=== PATIENT | male | born 1930 | race Caucasian/White ===

== ENCOUNTER → 2018-06-02 | Outpatient (CLI) | payer OTHER, MEDICARE ==
[~2018-06-02] MED LIST: ACE325 PO; ALP25 PO; AMIO400T9 PO; AMLO-1 PO; ASPE325 PO; ASPI81TA15 PO; BET25 PO; CARV25TA78 PO; CEP500 PO; CEPH500T7 PO; CIPR-214 PO; CIPR-344 PO; CLIN300C99 PO; DILT240C77 PO; DOC100 PO; DOC240 PO; DOCU-416 PO; DOXY150T6 PO; ERTA1VIA IVPB; FAMO20TA28 PO; FAMO20TA9 PO; FISH1CAP15 PO; FURO-45 PO; IRBE75TA4; LEV25; LEV88 PO; LISI2.5T60 PO; LISI5TAB25 PO; LOR5 PO; MAGN400T36 PO; METO-221 PO; METO-785 PO; MULT-1335 PO; MVI; OMEG500C5 PO; OXYGEN INH; PHENA200 PO; PRA20 PO; RIV10 PO; SULF-198 PO; TAMS0.4C69 PO; WAR2 PO; ZOL5 PO; [UNRECOGNIZED DRUG - CODE] PO
[2018-06-02 09:06] LABS: INR 3.75
== END ==
LOC: LAB 08:33
PROVIDERS: ATTEND Nurse Practitioner Family
DX: Z51.81 Encounter for therapeutic drug level monitoring (principal); Z79.01 Long term (current) use of anticoagulants
CPT/HCPCS: 36415; 85610

== ENCOUNTER → 2018-09-12 | Outpatient (CLI) | payer MEDICARE, OTHER ==
[~2018-09-12] MED LIST changes: +AZIT-17 PO; +LEVO50TA86 PO; +MAGN250T5 PO
--- NOTE | 2018-09-12 13:07 | RADIOLOGY IMAGING REPORT ---
FACILITY: [facility] PATIENT NAME: Ovidio Álvarez : 1930 MR: [id number] V: [id number] EXAM DATE: ORDERING PHYSICIAN: LG SEPULVEDA TECHNOLOGIST: Location: [facility] [place] Patient: Ovidio Álvarez : 1930 Visit/Account:[id number] Date of Sevice: 09/12/2018 CHEST PA LAT INDICATION: Hypoxia COMPARISON: April 27, 2016 FINDINGS: The cardiac silhouette is normal in size. Intact sternotomy wires noted. No pneumothora x. Moderate-sized new consolidation in the right upper lobe. Mild bilateral mid to lower lung patch y new groundglass opacification. No acute osseous abnormality. No pleural fluid. IMPRESSION: 1. Moderate-sized new right upper lobe consolidation concerning for a bronchopneumonia. Recommend 2 -3 week chest radiograph follow-up to ensure resolution. 2. Mild new bilateral mid to lower lung nonspecific central opacification which may represent airway s thickening related to a superimposed viral pneumonia or alternatively mild pulmonary edema. Report Dictated By: Sascha Way MD at 09/12/2018 1:00 PM Report E-Signed By: Sascha Way MD at 09/12/2018 1:02 PM WSN:[email or web address]
== END ==
LOC: RAD 11:15
PROVIDERS: ATTEND Nurse Practitioner Family
DX: R91.8 Other nonspecific abnormal finding of lung field (principal)
CPT/HCPCS: 71046

== ENCOUNTER → 2018-09-19 | Outpatient (CLI) | payer MEDICARE, OTHER ==
--- NOTE | 2018-09-19 11:30 | RADIOLOGY IMAGING REPORT ---
FACILITY: [facility] PATIENT NAME: Ovidio Álvarez : 1930 MR: [id number] V: [id number] EXAM DATE: ORDERING PHYSICIAN: LG SEPULVEDA TECHNOLOGIST: Location: [facility] Patient: Ovidio Álvarez : 1930 Visit/Account:[id number] Date of Sevice: 09/19/2018 CHEST PA LAT Indication: Pneumonia Comparison: Chest x-ray 09/12/2018 Findings: Lungs: Right upper lobe airspace opacity has not significantly changed. Patchy opacities left upper lobe are also unchanged. Mediastinum/pulmonary vasculature: Heart size and pulmonary vasculature are normal. Bones/soft tissues: Sternotomy wires are stable. IMPRESSION: Bilateral patchy upper lobe airspace opacities, unchanged from 09/12/2018. This is most c onsistent with pneumonia. Report Dictated By: Emil Delgado at 09/19/2018 11:24 AM Report E-Signed By: Emil Delgado at 09/19/2018 11:25 AM WSN:[email or web address]
== END ==
LOC: RAD 10:45
PROVIDERS: ATTEND Nurse Practitioner Family
DX: J18.9 Pneumonia, unspecified organism (principal)
CPT/HCPCS: 71046

== ENCOUNTER → 2018-09-26 | Outpatient (CLI) | payer MEDICARE, OTHER ==
[2018-09-26 11:31] LABS: PLATELET COUNT, AUTOMATED 254 K/uL (150-450)
--- NOTE | 2018-09-26 14:44 | RADIOLOGY IMAGING REPORT ---
FACILITY: [facility] [place] PATIENT NAME: Ovidio Álvarez : 1930 MR: [id number] V: [id number] EXAM DATE: ORDERING PHYSICIAN: LG SEPULVEDA TECHNOLOGIST: Location: [facility] Patient: Ovidio Álvarez : 1930 Visit/Account:[id number] Date of Sevice: 09/26/2018 Exam type: CHEST PA LAT History: Pneumonia and shortness of breath Comparison: September 19, 2017. Findings: A slight interval worsening of the patchy bilateral airspace opacities. There is mild blunting the c ostophrenic angles similar to the prior study which may represent small pleural effusions. The cardi ac silhouette is normal in size. There are sternotomy sutures present IMPRESSION: 1. Slight interval worsening of the patchy bilateral airspace opacities worrisome for multifocal pne umonia. Continued follow-up recommended Possible small bilateral pleural effusions Report Dictated By: Naty Singleton MD at 09/26/2018 2:37 PM Report E-Signed By: Naty Singleton MD at 09/26/2018 2:39 PM WSN:[email or web address]
== END ==
LOC: RAD 11:03
PROVIDERS: ATTEND Nurse Practitioner Family
DX: J18.9 Pneumonia, unspecified organism (principal); J90 Pleural effusion, not elsewhere classified
CPT/HCPCS: 36415; 71046; 83880; 85025; 85379

== ENCOUNTER 2018-11-10 14:30 | Outpatient (RCR) | payer MEDICARE, OTHER ==
--- NOTE | 2018-10-05 16:54 | PT INITIAL EVALUATION ---
MEDICAL DIAGNOSIS: decreased strength and balance TREATMENT DIAGNOSIS: same, altered gait, decreased endurance DATE OF ONSET: 08/02/18 SUBJECTIVE: Gavino Álvarez presents to physical therapy with complaints of fatigue, weakness, difficulties walking, and decreased balance with a desire to return to [place] as soon as possible to get back into his routine. 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 Other than the, he reports that he is doing well. He denies pain. He reports that he is a little frustrated for being here today. He also reports that he has ringing his B ears that no one can figure out. He denies any difficulties at home or any recent falls. REHAB PROBLEM LIST: Decreased Strength Decreased Endurance Decreased Balance Decreased Function Decreased ADL's Decreased Mobility Decreased Gait PREVIOUS MEDICAL HISTORY: See EMR OCCUPATION: Retired OBJECTIVE: Posture: He demonstrated B rounded shoulders, increased thoracic kyphosis, increased cervical flexion, increased forward head, decreased lumbar lordosis. ROM: B LE's: WFLs Strength: B hip flexion, abduction, adduction, extension, B knee flexion and extension, B ankle PF and DF: 4-/5. Special Tests: 6 minute walk test: 171 feet with multiple stops 5 sit to/from standin:29 seconds Mobility: Independent Gait: He demonstrated increased base of support, decreased B step lengths, decreased B feet clearance, decreased velocity, increased weaving from L to R, continually utilizing equipment to assist with ambulation. Balance: Decreased balance in all conditions as was able to hold each position for 3 0 seconds with moderate to severe sway. ASSESSMENT: He will benefit from skilled physical therapy to address the listed impairments to improve function and QOL. Short Term Goals 6 weeks: Pt will demonstrate improvements in B LE strength from baseline to 4+/5 or greater to improve function and QOL. 6 weeks: Pt will demonstrate improvements in endurance as he will be able to ambulate 500 feet without any sitting breaks. 6 weeks: Pt will be able to return to his gym to continue working out. Patient's Goals return to gym tank PLAN: Patient to be seen for Manual Therapy/STM/MET Strengthening/condition Range of Motion Spinal Stabilization Work Hardening/Cond Stretching Neuromuscular Re-ed Closed Chain Program Posture/Body mechanics Gait Trg/Balance Trg Home Exercise Program Therapeutic Activities 2x/Week for 6 Weeks If you have any questions, comments, or concerns about this report or plan, please contact me at . Thank you, Sanjeev Romero, PT, DPT MTDD
--- NOTE | 2018-11-14 13:13 | PT PLAN OF CARE ---
Physician: ALMAZ Fenton Patient is being seen: 2x/week Therapist: Sanjeev Romero, PT, DPT Medical Diagnosis: decreased strength and balance Treatment Diagnosis: same, altered gait, decreased endurance Date of Onset: 08/02/18 Date of Initial Evaluation: 10/05/18 Date patient was last seen: 11/10/18 Number of treatments: 9 Number of cancellations/No shows: 1 INTERVENTIONS: Manual Therapy/STM/MET Strengthening/condition Range of Motion Spinal Stabilization Work Hardening/Cond Stretching Neuromuscular Re-ed Closed Chain Program Posture/Body mechanics Gait Trg/Balance Trg Home Exercise Program Therapeutic Activities GOALS: 6 weeks: Pt will demonstrate improvements in B LE strength from baseline to 4+/5 or greater to improve function and QOL. 6 weeks: Pt will demonstrate improvements in endurance as he will be able to ambulate 500 feet without any sitting breaks. 6 weeks: Pt will be able to return to his gym to continue working out. PATIENT'S GOAL: return to gym tank Status of Patient's Goals: Unknown Patient Compliance: Fair Prognosis: Fair Reasons for continuing therapy: This is a discharge note for Ovidio Álvarez. He had a heart event and is admitted to the hospital. As a result, he will be discharged from PT. Posture: He demonstrated B rounded shoulders, increased thoracic kyphosis, increased cervical flexion, increased forward head, decreased lumbar lordosis. ROM: B LE's: WFLs Strength: B hip flexion, abduction, adduction, extension, B knee flexion and extension, B ankle PF and DF: 4-/5. Palpation: Special Tests: 6 minute walk test: 171 feet with multiple stops 5 sit to/from standin:29 seconds Mobility: Independent If you have any questions, please contact me at [phone]. Thank you, Sanjeev Romero, PT, DPT [facility]
== END 2018-11-10 18:00 | disposition home or self-care (01) ==
LOC: PT 14:30
PROVIDERS: ATTEND Nurse Practitioner Family
DX: M62.81 Muscle weakness (generalized) (principal); R26.89 Other abnormalities of gait and mobility; R53.83 Other fatigue; Z95.1 Presence of aortocoronary bypass graft; H93.13 Tinnitus, bilateral
CPT/HCPCS: 97162

== ENCOUNTER 2018-11-13 07:35 | Inpatient (IN) | payer MEDICARE, OTHER ==
--- NOTE | 2018-11-13 07:32 | ER Report ---
History and Physical Time Seen By MD: 07:32 JONY/HANNA FRASER after being found down by at home. History of CABG, NE, and urologic issues. Pt. with HR in the 30s, hypoxic and unresponsive when paramedics arrived. Received an IO for access, and was still unresponsive during the placement. Upon arrival to the ED confused initially and in resp distress. states he has been progressively more SOB and weak over the past 2 weeks. Also worsening of his dementia as of late. No recent infections. Seen by PCM last week. Remainder of the 14 system rev: Yes Allergies: Coded Allergies: Penicillins (Verified Allergy, Unknown, 06/26/16) Home Meds Reported Medications Magnesium Oxide (MAGNESIUM OXIDE) 250 Mg Tablet, 250 MG PO QDAY 07/05/18 Levothyroxine Sodium (LEVOTHYROXINE SODIUM) 50 Mcg Tablet, 50 MCG PO QDAY, TAB 07/05/18 Lisinopril (LISINOPRIL) 5 Mg Tablet, 5 MG PO QDAY HOLD FOR (S) BP LOWER THAN 120 09/18/13 Carvedilol (CARVEDILOL) 25 Mg Tablet, 12.5 MG PO BID, TAB TAKE ONE half TABLET BY MOUTH TWICE A DAY 09/17/13 Oxygen (Oxygen) 2 L Inha, 2 L INH DAILY 12/15/12 Multivitamins W-Minerals (Multiple Vitamin) 1 Tab Tablet, 1 TAB PO DAILY 12/15/12 Fish Oil/Dha/Epa (FISH OIL 1,200 MG FISH OIL) 1 Each Capsule, 1 EACH PO DAILY 12/15/12 Acetaminophen (Tylenol) 325 Mg Tab, 650 MG PO Q6H PRN 12/15/12 Warfarin Sod (Coumadin (Or Equiv)) 2 Mg Tab, 2 MG PO QDAYW WEDNESDAY, WEDNESDAY, WEDNESDAY, WEDNESDAY. It is very important that you take your coumadin exactly as prescribed, have blood work to monitor your PT/INR values, and follow up with your health care provider as prescribed. Diet and medication can affect the PT/INR level. Keep your diet pretty much the same day to day. Many foods contain Vitamin K which helps blood to clot and can affect the way your coumadin works. You don't need to avoid foods that have Vitamin K, but you do need to eat about the same amount of them every day. Be sure to tell your provider before changing your diet for any reason (weight loss, illness, etc.) Do not start or discontinue any medications, prescribed or over the counter, except on the advise of your provider or pharmacist. Coumadin (Warfarin) increases the risk of bleeding. 10/19/12 Pravastatin Sod (PRAVACHOL (OR EQUIV)) 20 Mg Tab, 20 MG PO HS, #90 06/26/12 Discontinued Scripts Azithromycin (Z-PACK) 250 Mg Tablet, 0 PO QDAY, #6 DOSE-PACK Prov:CAM SEGAL MD 08/22/18 Hx Smoking: Yes (60 YEARS AGO) Smoking Status: Never Smoker, Former Smoker Exposure to Second Hand Smoke?: No Hx Substance Use Disorder: No (Refuses to say) Hx Alcohol Use: No Constitutional Vital Sign - Last 24 Hours 11/13/18 11/13/18 11/13/18 11/13/18 07:36 07:37 08:00 08:05 Pulse 82 105 Resp 32 22 B/P (MAP) 160/122 167/148 (154) 150/107 (121) Pulse Ox 93 87 O2 Delivery Oxy Mask O2 Flow Rate 10.0 11/13/18 11/13/18 11/13/18 11/13/18 08:10 08:15 08:20 08:24 B/P (MAP) 135/87 (103) 149/98 (115) 135/101 (112) Pulse Ox 98 O2 Delivery Bi-PAP FiO2 60.0 11/13/18 11/13/18 11/13/18 11/13/18 08:24 08:24 08:25 08:30 Pulse 85 94 Resp 28 21 B/P (MAP) 129/107 (114) 129/98 (108) Pulse Ox 94 FiO2 60.0 11/13/18 11/13/18 11/13/18 11/13/18 08:35 08:40 08:45 08:50 B/P (MAP) 142/103 (116) 141/97 (112) 127/101 (110) 131/118 (122) 11/13/18 11/13/18 11/13/18 11/13/18 08:55 09:00 09:05 09:10 Pulse ??? B/P (MAP) ???/??? (6965) 140/100 (113) 135/90 (105) 11/13/18 11/13/18 11/13/18 11/13/18 09:15 09:20 09:25 09:30 Pulse 74 Resp 18 B/P (MAP) 138/94 (109) 132/80 (97) 124/83 (97) 136/73 (94) Pulse Ox 100 11/13/18 11/13/18 11/13/18 11/13/18 09:35 09:40 09:45 09:50 B/P (MAP) 134/61 (85) 128/75 (92) 124/70 (88) 122/75 (91) 11/13/18 09:55 B/P (MAP) 124/87 (99) Physical Exam General Appearance: The patient is in moderate resp distress, is confused and somewhat combative Eyes: Pupils equal and round no pallor or injection. ENT, Mouth: Mucous membranes are moist. Respiratory: diffuse rales Cardiovascular: irregular rhythm Gastrointestinal: Abdomen is soft and non tender, no masses, bowel sounds normal. Neurological: alert but confused, moves all extremities equally Skin: Warm and dry, no rashes. Neck is supple non tender. Extremities: b/l lower extremity edema to knees. Urinary catheter leg bag in place DIFFERENTIAL DIAGNOSIS: After history and physical exam differential diagnosis was considered for shortness of breath including but not limited to pulmonary infectious process, COPD, asthma, pulmonary embolus and congestive heart failure. Medical Decision Making Data Points Result Diagram: 11/13/18 0730 11/13/18 0730 Laboratory Hematology Test 11/13/18 07:30 Red Blood Count 4.54 M/uL (4.00-5.60) Mean Corpuscular Volume 95.5 fL (80.0-96.0) Mean Corpuscular Hemoglobin 30.5 pg (26.0-33.0) Mean Corpuscular Hemoglobin Concent 31.9 g/dL (32.0-36.0) Red Cell Distribution Width 19.0 % (11.5-14.5) Mean Platelet Volume 8.0 fL (7.2-11.1) Neutrophils (%) (Auto) 57.5 % (39.4-72.5) Lymphocytes (%) (Auto) 21.0 % (17.6-49.6) Monocytes (%) (Auto) 19.6 % (4.1-12.4) Eosinophils (%) (Auto) 1.2 % (0.4-6.7) Basophils (%) (Auto) 0.7 % (0.3-1.4) Nucleated RBC Relative Count (auto) 0.0 /100WBC Neutrophils # (Auto) 4.1 K/uL (2.0-7.4) Lymphocytes # (Auto) 1.5 K/uL (1.3-3.6) Monocytes # (Auto) 1.4 K/uL (0.3-1.0) Eosinophils # (Auto) 0.1 K/uL (0.0-0.5) Basophils # (Auto) 0.1 K/uL (0.0-0.1) Nucleated RBC Absolute Count (auto) 0.00 K/uL Prothrombin Time 20.7 seconds (12.0-14.4) Prothromb Time International Ratio 1.75 Activated Partial Thromboplast Time 32 seconds (23-35) Sodium Level 142 mmol/L (137-145) Potassium Level 4.4 mmol/L (3.5-5.0) Chloride Level 108 mmol/L (98-107) Carbon Dioxide Level 24 mmol/L (22-30) Blood Urea Nitrogen 27 mg/dl (9-21) Creatinine 2.10 mg/dl (0.66-1.25) Glomerular Filtration Rate Calc 30.1 Random Glucose 125 mg/dl (75-110) Lactate 2.3 mmol/L (0.7-2.1) Calcium Level 8.9 mg/dl (8.4-10.2) Total Bilirubin 1.0 mg/dl (0.2-1.3) Aspartate Amino Transf (AST/SGOT) 43 U/L (0-35) Alanine Aminotransferase (ALT/SGPT) 38 U/L (0-56) Alkaline Phosphatase 75 U/L (0-126) Troponin I 0.029 ng/ml Total Protein 7.5 g/dl (6.3-8.2) Albumin 4.0 g/dl (3.5-5.0) Chemistry Test 11/13/18 07:30 White Blood Count 7.1 k/uL (4.5-11.0) Red Blood Count 4.54 M/uL (4.00-5.60) Hemoglobin 13.8 g/dL (14.0-18.0) Hematocrit 43.4 % (42.0-52.0) Mean Corpuscular Volume 95.5 fL (80.0-96.0) Mean Corpuscular Hemoglobin 30.5 pg (26.0-33.0) Mean Corpuscular Hemoglobin Concent 31.9 g/dL (32.0-36.0) Red Cell Distribution Width 19.0 % (11.5-14.5) Platelet Count 254 K/uL (150-450) Mean Platelet Volume 8.0 fL (7.2-11.1) Neutrophils (%) (Auto) 57.5 % (39.4-72.5) Lymphocytes (%) (Auto) 21.0 % (17.6-49.6) Monocytes (%) (Auto) 19.6 % (4.1-12.4) Eosinophils (%) (Auto) 1.2 % (0.4-6.7) Basophils (%) (Auto) 0.7 % (0.3-1.4) Nucleated RBC Relative Count (auto) 0.0 /100WBC Neutrophils # (Auto) 4.1 K/uL (2.0-7.4) Lymphocytes # (Auto) 1.5 K/uL (1.3-3.6) Monocytes # (Auto) 1.4 K/uL (0.3-1.0) Eosinophils # (Auto) 0.1 K/uL (0.0-0.5) Basophils # (Auto) 0.1 K/uL (0.0-0.1) Nucleated RBC Absolute Count (auto) 0.00 K/uL Prothrombin Time 20.7 seconds (12.0-14.4) Prothromb Time International Ratio 1.75 Activated Partial Thromboplast Time 32 seconds (23-35) Glomerular Filtration Rate Calc 30.1 Lactate 2.3 mmol/L (0.7-2.1) Calcium Level 8.9 mg/dl (8.4-10.2) Total Bilirubin 1.0 mg/dl (0.2-1.3) Aspartate Amino Transf (AST/SGOT) 43 U/L (0-35) Alanine Aminotransferase (ALT/SGPT) 38 U/L (0-56) Alkaline Phosphatase 75 U/L (0-126) Troponin I 0.029 ng/ml Total Protein 7.5 g/dl (6.3-8.2) Albumin 4.0 g/dl (3.5-5.0) Coagulation Test 11/13/18 07:30 Prothrombin Time 20.7 seconds Prothromb Time International Ratio 1.75 Activated Partial Thromboplast Time 32 seconds Microbiology Microbiology Date/Time Source Procedure Growth Status 11/13/18 08:13 Blood Line Draw Blood Culture - Preliminary NO GROWTH SO FAR, SET LATE. REINCUBATED Resulted 11/13/18 07:30 Blood Blood Culture - Preliminary NO GROWTH SO FAR, SET LATE. REINCUBATED Resulted ED Course/Re-evaluation ED Course Fall at home likely from primary cardiac event or secondary to hypoxia from pulmonary edema. Bradycardic, hypoxic, and unresponsive on propeller engineer's arrival to the home. Pt. more comfortable and less combative in the ED after placement of BIPAP. CXR notable for interstitial PNA vs. pulmonary edema. Bedside echo shows EF of likely 30-35%. Echo in July had EF of 55%. Improved with BIPAP and Lasix. Given abx for possible PNA. I had a long conversation with family about goals of care. states that she considered not calling 911, but felt as if her would have wanted her to call. That said, she said he would not want aggressive care to include cardiology/culture media laboratory assistant intervention/etc. She agreed that BIPAP and medical management at [facility] was ideal for him, and understands the limitations at [facility]. He will be admitted for further care and stabilization. Decision to Disposition Date: Nov 13, 2018 Decision to Disposition Time: 09:55 Depart Departure Latest Vital Signs Vital Signs Date Time Temp Pulse Resp B/P (MAP) Pulse Ox O2 Delivery O2 Flow Rate FiO2 11/13/18 09:55 124/87 (99) 11/13/18 09:30 74 18 100 11/13/18 08:24 60.0 11/13/18 08:24 Bi-PAP 11/13/18 07:36 10.0 Impression: Primary Impression: CHF exacerbation Additional Impression: Respiratory failure, acute Condition: Improved Disposition: Admitted from ER Problem Qualifiers Primary Impression: CHF exacerbation Heart failure type: unspecified Qualified Codes: I50.9 - Heart failure, unspecified Additional Impression: Respiratory failure, acute Respiratory failure complication: hypoxia Qualified Codes: J96.01 - Acute respiratory failure with hypoxia JUNAID BURNETTE MD Nov 13, 2018 07:32
[~2018-11-13 07:35] MED LIST changes: -ALBU8.5H IH
[2018-11-13] MEDS ORDERED: NS(*) 0.9% 1000 ML BAG 1,000 ML IV ONE ×2 (07:45→08:50)
[2018-11-13 07:57] LABS: PLATELET COUNT, AUTOMATED 254 K/uL (150-450)
[2018-11-13] MEDS ORDERED: EMS NS 0.9%(*) 1000 ML BAG 1,000 ML IV ONE (08:00)
[2018-11-13 08:02] LABS: INR 1.75
--- NOTE | 2018-11-13 08:21 | RADIOLOGY IMAGING REPORT ---
FACILITY: [facility] PATIENT NAME: Ovidio Álvarez : 1930 MR: [id number] V: [id number] EXAM DATE: ORDERING PHYSICIAN: JUNAID BURNETTE TECHNOLOGIST: Location: [facility] Patient: Ovidio Álvarez : 1930 Visit/Account:[id number] Date of Sevice: 11/13/2018 Portable chest, one view. HISTORY: Fall, on Coumadin, shortness of breath. COMPARISON: 09/26/2018. EKG leads project on the chest. Surgical wires are present in the sternum. Metal clips project on the mediastinum and left chest. Mild cardiomegaly is unchanged. The aortic knob is calcified. Pulmonary vessels are mildly engorged. Patchy infiltrate in the right upper lobe has decreased. Bilateral inter stitial lung infiltrates are otherwise unchanged. The pleural surfaces are unremarkable. No pneumotho rax. Degenerative changes are present in the spine and left shoulder. IMPRESSION: Mild cardiomegaly without kelsea congestive heart failure. Right upper lobe infiltrate, decreased. Bilateral interstitial lung infiltrates, otherwise unchanged. Atherosclerosis. Report Dictated By: Valerio Zaragoza MD at 11/13/2018 8:13 AM Report E-Signed By: Valerio Zaragoza MD at 11/13/2018 8:17 AM WSN:[id number]
[2018-11-13] MEDS ORDERED: LEVOFLOXACIN/D5W 750 MG/150 ML 150 ML IVPB ONE (08:30)
[2018-11-13] MEDS ORDERED: FUROSEMIDE 40 MG/4 ML VIAL IVP ONE (08:55)
--- NOTE | 2018-11-13 09:41 | RADIOLOGY IMAGING REPORT ---
FACILITY: [facility] PATIENT NAME: Ovidio Álvarez : 1930 MR: [id number] V: [id number] EXAM DATE: ORDERING PHYSICIAN: JUNAID BURNETTE TECHNOLOGIST: Location: [facility] [place] Patient: Ovidio Álvarez : 1930 Visit/Account:[id number] Date of Sevice: 11/13/[address] scan without contrast, and cervical spine CT scan without contrast. HISTORY: Fall, on Coumadin. COMPARISON: None currently available. 3 mm thick and 0.[address] images were obtained of the brain. 2 mm thick and 0.[address] images were obtained of the cervical spine. Coronal and sagittal computer reconstructions w ere performed. No intravenous contrast. One of the following dose optimization techniques was utilize d in the performance of this exam: Automated exposure control; adjustment of the mA and/or kV accordi ng to the patient's size; or use of an iterative reconstruction technique. Specific details can be referenced in the facility's radiology CT exam operational policy. FINDINGS: Cerebral and cerebellar sulci are moderately widened. The brainstem is slightly obscured by CT artifa cts. Patchy areas of decreased attenuation are present in the centrum semiovale bilaterally, most pro minent in the right frontal lobe. Moderate encephalomalacia is present in the right frontal lobe. Charles cifications are present in the left basal ganglia. A small low-density defect is present in the right internal capsule. No acute intracranial hemorrhage. No masses or acute infarcts. No abnormal subdura l fluid collections. The calvarium is intact. The vertebral, basilar, and carotid arteries are calcif ied. The paranasal sinuses are unremarkable. Degenerative changes are present throughout the cervical spine. No acute cervical fractures are ident ified. The cervical bony spinal canal diameter is normal. The odontoid is intact. No prevertebral sof t tissue swelling. Several calcifications are present in the posterior cervical soft tissues. IMPRESSION: Moderate cerebral and cerebellar atrophy. Moderate to severe periventricular white matter disease consistent with chronic ischemic changes. 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 Right frontal encephalomalacia. Atherosclerosis. Negative for acute cervical fracture. Extensive cervical degenerative changes. Otherwise negative unenhanced brain and cervical spine. Report Dictated By: Valerio Zaragoza MD at 11/13/2018 9:28 AM Report E-Signed By: Valerio Zaragoza MD at 11/13/2018 9:37 AM WSN:[id number]
--- NOTE | 2018-11-13 09:41 | RADIOLOGY IMAGING REPORT ---
FACILITY: [facility] - [place] PATIENT NAME: Ovidio Álvarez : 1930 MR: [id number] V: [id number] EXAM DATE: ORDERING PHYSICIAN: JUNAID BURNETTE TECHNOLOGIST: Location: [facility] Patient: Ovidio Álvarez : 1930 Visit/Account:[id number] Date of Sevice: 11/13/[address] scan without contrast, and cervical spine CT scan without contrast. HISTORY: Fall, on Coumadin. COMPARISON: None currently available. 3 mm thick and 0.[address] images were obtained of the brain. 2 mm thick and 0.[address] images were obtained of the cervical spine. Coronal and sagittal computer reconstructions w ere performed. No intravenous contrast. One of the following dose optimization techniques was utilize d in the performance of this exam: Automated exposure control; adjustment of the mA and/or kV accordi ng to the patient's size; or use of an iterative reconstruction technique. Specific details can be referenced in the facility's radiology CT exam operational policy. FINDINGS: Cerebral and cerebellar sulci are moderately widened. The brainstem is slightly obscured by CT artifa cts. Patchy areas of decreased attenuation are present in the centrum semiovale bilaterally, most pro minent in the right frontal lobe. Moderate encephalomalacia is present in the right frontal lobe. Charles cifications are present in the left basal ganglia. A small low-density defect is present in the right internal capsule. No acute intracranial hemorrhage. No masses or acute infarcts. No abnormal subdura l fluid collections. The calvarium is intact. The vertebral, basilar, and carotid arteries are calcif ied. The paranasal sinuses are unremarkable. Degenerative changes are present throughout the cervical spine. No acute cervical fractures are ident ified. The cervical bony spinal canal diameter is normal. The odontoid is intact. No prevertebral sof t tissue swelling. Several calcifications are present in the posterior cervical soft tissues. IMPRESSION: Moderate cerebral and cerebellar atrophy. Moderate to severe periventricular white matter disease consistent with chronic ischemic changes. 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 Right frontal encephalomalacia. Atherosclerosis. Negative for acute cervical fracture. Extensive cervical degenerative changes. Otherwise negative unenhanced brain and cervical spine. Report Dictated By: Valerio Zaragoza MD at 11/13/2018 9:28 AM Report E-Signed By: Valerio Zaragoza MD at 11/13/2018 9:37 AM WSN:[id number]
[2018-11-13 10:34] VITALS: BP 142/90
[2018-11-13] MEDS ORDERED: FLUSH 10 ML SYR IVP PRN (11:10)
[2018-11-13 11:15] VITALS: BP 111/95
--- NOTE | 2018-11-13 11:27 | History & Physical ---
History of Present Illness Chief Complaint Found down on floor History of Present Illness 88yo male with PMHx significant for CAD s/p CABG, chronic a-fib. He also has a history of declining memory and functional level per , but had not been d iagnosed with dementia as of yet. His reports she awoke this AM to find him having fallen to the floor. She had difficulty arousing him. She contacted EMS. Upon their arrival it is reported he was unresponsive with heart rate in 40bpm range. 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 His lactate was slightly elevated as was his troponin. At this time he is awake and alert. He is oriented to person, but not fully to place or time. He denies any complaints. He is afraid he might get hurt. His reports he "does not understand things like he used to" and she has his power of divorce attorney. She states he is to be DNR/DNI and would like to avoid aggressive interventions if at all possible. She would like to "make sure he is comfortable more than anything else". History Problems: (1) CAD (coronary artery disease) Status: Chronic (2) Hypothyroidism Status: Chronic (3) Chronic kidney disease Status: Chronic (4) Atrial fibrillation Status: Chronic (5) S/P CABG (coronary artery bypass graft) Status: Chronic Home Meds Reported Medications Magnesium Oxide (MAGNESIUM OXIDE) 250 Mg Tablet, 250 MG PO QDAY 07/05/18 Levothyroxine Sodium (LEVOTHYROXINE SODIUM) 50 Mcg Tablet, 50 MCG PO QDAY, TAB 07/05/18 Lisinopril (LISINOPRIL) 5 Mg Tablet, 5 MG PO QDAY HOLD FOR (S) BP LOWER THAN 120 09/18/13 Carvedilol (CARVEDILOL) 25 Mg Tablet, 12.5 MG PO BID, TAB TAKE ONE half TABLET BY MOUTH TWICE A DAY 09/17/13 Oxygen (Oxygen) 2 L Inha, 2 L INH DAILY 12/15/12 Multivitamins W-Minerals (Multiple Vitamin) 1 Tab Tablet, 1 TAB PO DAILY 12/15/12 Fish Oil/Dha/Epa (FISH OIL 1,200 MG FISH OIL) 1 Each Capsule, 1 EACH PO DAILY 12/15/12 Acetaminophen (Tylenol) 325 Mg Tab, 650 MG PO Q6H PRN 12/15/12 Warfarin Sod (Coumadin (Or Equiv)) 2 Mg Tab, 2 MG PO QDAYW WEDNESDAY, WEDNESDAY, WEDNESDAY, WEDNESDAY. It is very important that you take your coumadin exactly as prescribed, have blood work to monitor your PT/INR values, and follow up with your health care provider as prescribed. Diet and medication can affect the PT/INR level. Keep your diet pretty much the same day to day. Many foods contain Vitamin K which helps blood to clot and can affect the way your coumadin works. You don't need to avoid foods that have Vitamin K, but you do need to eat about the same amount of them every day. Be sure to tell your provider before changing your diet for any reason (weight loss, illness, etc.) Do not start or discontinue any medications, prescribed or over the counter, except on the advise of your provider or pharmacist. Coumadin (Warfarin) increases the risk of bleeding. 10/19/12 Pravastatin Sod (PRAVACHOL (OR EQUIV)) 20 Mg Tab, 20 MG PO HS, #90 06/26/12 Discontinued Scripts Azithromycin (Z-PACK) 250 Mg Tablet, 0 PO QDAY, #6 DOSE-PACK Prov:CAM SEGAL MD 08/22/18 Allergies: Coded Allergies: Penicillins (Verified Allergy, Unknown, 06/26/16) Other Social/Family Hx He is and lives with his in [place]. Hx Smoking: Yes (60 YEARS AGO) Smoking Status: Never Smoker, Former Smoker Exposure to Second Hand Smoke?: No Caffeine Intake: Coffee Caffeine/Cups Per Day: 2 CUPS PER DAY Hx Alcohol Use: No Hx Substance Use Disorder: No (Refuses to say) Social Drug Use: Never Review of Systems Other Unable to obtain due to cognitive difficulties. states he has been declining with respect to all functions, especially memory. He has chronic urinary retention and indwelling Craig catheter. Exam Vital Signs Vital Signs Date Time Temp Pulse Resp B/P (MAP) Pulse Ox O2 Delivery O2 Flow Rate FiO2 11/13/18 10:34 97.5 94 20 142/90 (107) 88 Nasal Cannula 3.0 11/13/18 08:24 60.0 General Appearance: Alert, Awake Neuro: Other (He is able to move all four extremities) Eyes: PERRLA ENT: Oropharynx Clear Cardiovascular: Other (Irregular with soft systolic/diastolic murmurs) Respiratory: Other (decreased breath sounds with few rales at bases/no wheezes) Chest: No Tenderness, Other (healed sternotomy scar) GI: Other (soft/BS present) : No CVA Tenderness, Other (indwelling Craig cath/some scrotal swelling) Extremities: Warm, Perfused, Edema (2-3+ both LE extending into thighs) Integumentary: Generalized Fragile Skin Psych: Other (oriented to person, but not to time or place) Medical Decision Making Data Points Result Diagram: 11/13/18 0730 11/13/18 0730 Item Value Date Time Albumin 4.0 g/dl 11/13/18 0730 Total Protein 7.5 g/dl 11/13/18 0730 Troponin I 0.029 ng/ml 11/13/18 0730 Alkaline Phosphatase 75 U/L 11/13/18 0730 Alanine Aminotransferase (ALT/SGPT) 38 U/L 11/13/18 0730 Aspartate Amino Transf (AST/SGOT) 43 U/L H 11/13/18 0730 Total Bilirubin 1.0 mg/dl 11/13/18 0730 Calcium Level 8.9 mg/dl 11/13/18 0730 Lactate 2.3 mmol/L H 11/13/18 0730 Activated Partial Thromboplast Time 32 seconds 11/13/18 0730 Prothrombin Time 20.7 seconds H 11/13/18 0730 Prothromb Time International Ratio 1.75 11/13/18 0730 EKG / Imaging Imaging PATIENT NAME: Ovidio Álvarez : 1930 MR: [id number] V: [id number] EXAM DATE: [id number] ORDERING PHYSICIAN: JUNAID BURNETTE TECHNOLOGIST: Location: [facility] Patient: Ovidio Álvarez : 1930 Visit/Account:[id number] Date of Sevice: 11/13/2018 Portable chest, one view. HISTORY: Fall, on Coumadin, shortness of breath. COMPARISON: 09/26/2018. EKG leads project on the chest. Surgical wires are present in the sternum. Metal clips project on the mediastinum and left chest. Mild cardiomegaly is unchanged. The aortic knob is calcified. Pulmonary vessels are mildly engorged. Patchy infiltrate in the right upper lobe has decreased. Bilateral interstitial lung infiltrates are otherwise unchanged. The pleural surfaces are unremarkable. No pneumothorax. Degenerative changes are present in the spine and left shoulder. IMPRESSION: Mild cardiomegaly without kelsea congestive heart failure. Right upper lobe infiltrate, decreased. Bilateral interstitial lung infiltrates, otherwise unchanged. Atherosclerosis. Report Dictated By: Valerio Zaragoza MD at 11/13/2018 8:13 AM Report E-Signed By: Vlaerio Zaragoza MD at 11/13/2018 8:17 AM WSN:[id number] PATIENT NAME: Ovidio Álvarez : 1930 MR: [id number] V: [id number] EXAM DATE: [id number] ORDERING PHYSICIAN: JUNAID BURNETTE TECHNOLOGIST: Location: [facility] [place] Patient: Ovidio Álvarez : 1930 Visit/Account:[id number] Date of Sevice: 11/13/[address] scan without contrast, and cervical spine CT scan without contrast. HISTORY: Fall, on Coumadin. COMPARISON: None currently available. 3 mm thick and 0.[address] images were obtained of the brain. 2 mm thick and 0.[address] images were obtained of the cervical spine. Coronal and sagittal computer reconstructions were performed. No intravenous contrast. One of the following dose optimization techniques was utilized in the performance of this exam: Automated exposure control; adjustment of the mA and/or kV according to the patient's size; or use of an iterative reconstruction technique. Specific details can be referenced in the facility's radiology CT exam operational policy. FINDINGS: Cerebral and cerebellar sulci are moderately widened. The brainstem is slightly obscured by CT artifacts. Patchy areas of decreased attenuation are present in the centrum semiovale bilaterally, most prominent in the right frontal lobe. Moderate encephalomalacia is present in the right frontal lobe. Calcifications are present in the left basal ganglia. A small low-density defect is present in the right internal capsule. No acute intracranial hemorrhage. No masses or acute infarcts. No abnormal subdural fluid collections. The calvarium is intact. The vertebral, basilar, and carotid arteries are calcified. The paranasal sinuses are unremarkable. Degenerative changes are present throughout the cervical spine. No acute cervica l fractures are identified. The cervical bony spinal canal diameter is normal. The odontoid is intact. No prevertebral soft tissue swelling. Several calcifications are present in the posterior cervical soft tissues. IMPRESSION: Moderate cerebral and cerebellar atrophy. Moderate to severe periventricular white matter disease consistent with chronic ischemic changes. 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 Right frontal encephalomalacia. Atherosclerosis. Negative for acute cervical fracture. Extensive cervical degenerative changes. Otherwise negative unenhanced brain and cervical spine. Report Dictated By: Valerio Zaragoza MD at 11/13/2018 9:28 AM Report E-Signed By: Valerio Zaragoza MD at 11/13/2018 9:37 AM WSN:[id number] Assessment and Plan Problems: (1) Fall Status: Acute Assessment & Plan: Based on history and EMS report, I would suspect he probably had a bradycardic dysrhythmia associated with his a-fib. At this point, the patient does not appear to understand his current situation and his does not want to pursue any aggressive interventions such as transfer for cardiac evaluation/possible pacemaker placement. Will admit to medical/telemetry and monitor for any recurrent dysrhythmias. Will hold his carvedilol. Watch closely. Discuss further with patient/family. (2) Bradycardia Status: Acute Assessment & Plan: Will hold his carvedilol. Watch on telemetry. At this point, his does not wish to pursue any aggressive interventions as noted above. He may have tachy-swathi associated with his chronic a-fib. (3) Atrial fibrillation Status: Chronic Assessment & Plan: Will continue his warfarin for CVA prophylaxis. Will hold his carvedilol for now. (4) Cognitive dysfunction Status: Chronic Assessment & Plan: It sounds like he has had a progressive dementing process based on history from his . He also has significant previous right frontal infarct. Will check UA/culture and other metabolic studies. At this point, he does not seem to understand much of what is going on. His does seem to understand his current status as well as his prognosis. She has elected to pursue a conservative approach and would like to avoid any aggressive interventions. (5) Hypothyroidism Status: Chronic Assessment & Plan: Continue replacement therapy with L-thyroxine 50mcg daily. Check TSH. (6) CAD (coronary artery disease) Status: Chronic Assessment & Plan: He has had previous CABG. His troponin is slightly elevated above negative. Will check serial troponins. (7) Chronic kidney disease Status: Chronic Assessment & Plan: His creatinine (2.1) is slightly above his baseline of 1.8. Will give gentle IV fluids and watch UOP and labs. Venous Thromboembolism Antithrombotics Is Pt On Any Antithrombotics?: Yes Exam Sepsis Risk: No Definite Risk OSMAN GONZALEZ MD Nov 13, 2018 11:27
[2018-11-13 11:30] VITALS: BP 156/109
--- NOTE | 2018-11-13 15:09 | EKG ---
FACILITY: [facility] PATIENT NAME: JOSE M CASTANEDA : [id number] MR: [id number] V: [id number] EXAM DATE: ORDERING PHYSICIAN: JUNAID BURNETTE TECHNOLOGIST: FERMIN Test Reason : FOUND UNRESPONSIVE Blood Pressure : / mmHG Vent. Rate : 084 BPM Atrial Rate : 082 BPM P-R Int : 000 ms QRS Dur : 126 ms QT Int : 406 ms P-R-T Axes : 000 -71 054 degrees QTc Int : 479 ms Atrial fibrillation Left axis deviation Nonspecific intraventricular block Abnormal ECG Confirmed by OSMAN GONZALEZ ([id number]) on 11/13/2018 9:30:54 PM Referred By: YOMAIRA Confirmed By:OSMAN GONZALEZ
[2018-11-13 15:26] VITALS: BP 139/98
[2018-11-13] MEDS: NYSTATIN 100,000 U/GM PWD 15GM TP SCH ×2 (16:33→20:33)
[2018-11-13 20:14] VITALS: BP 147/94
[2018-11-13] MEDS: ACETAMINOPHEN 325 MG TAB PO PRN (20:32)
[2018-11-13 23:42] VITALS: BP 145/80
[2018-11-14 03:45] VITALS: BP 138/79
[2018-11-14] MEDS: LEVOTHYROXINE SOD 0.05 MG TAB PO SCH (05:22)
[2018-11-14 05:54] LABS: PLATELET COUNT, AUTOMATED 213 K/uL (150-450)
[2018-11-14 06:02] LABS: INR 2.24
[2018-11-14 07:25] VITALS: BP 144/97
[2018-11-14 12:47] VITALS: BP 158/122
--- NOTE | 2018-11-14 12:57 | NUR ---
Physical Therapy Impression PT/OT co-eval completed followed by co-treatment for pt safety. Pt previously ambulated with SPC in the home and was able to leave the home 2-3x/wk with assistance of spouse for community activities. Currently pt requires Mod/Max assist x 2 for bed mobility and transfers, as well as sit to stand and side step at EOB. Pt notes signficant pain at R) knee where he had an IO line previously. Recommend nursing to utilize EZ lift for initially transfers as needed. Physical Therapy Goals 1. Pt to be Min/CGA for supine to/from sit transfers 2. Pt to be CGA/SBA for sit to/from stand transfers 3. Pt to ambulate 50' with FWW and pain in manageable range 4. Pt to jyothi up/down one platform step with least restrictive device and SBA/CGA. Patient's Goals
[2018-11-14] MEDS ORDERED: LISINOPRIL 5 MG TAB PO ONE (13:05)
--- NOTE | 2018-11-14 13:14 | NUR ---
Physical Therapy Impression PT/OT co-treat for pt safety, following eval. Time split for billing purposes. Pt tolerated transfer to sitting at EOB with Min assist to support L) LE, due to pain and several rest breaks due to increased work of breathing. Mod/Max assist for supine to/from sit and sit to/from stand. Pt tolerated side scooting x 2' to head of bed prior to sitting back down. BP was somewhat elevated at beginning of session, but improved once sitting at edge of bed. No c/o dizziness reported. Pt fatigues very quickly and will require a gentle approach. Recommend use of EZ lift with nursing for any necessary transfers. Further rehab may be appropriate if plan is to d/c home. Will continue to treat while awaiting disposition plans. Physical Therapy Goals 1. Pt to be Min/CGA for supine to/from sit transfers 2. Pt to be CGA/SBA for sit to/from stand transfers 3. Pt to ambulate 50' with FWW and pain in manageable range 4. Pt to jyothi up/down one platform step with least restrictive device and SBA/CGA. Patient's Goals
[2018-11-14] MEDS: WARFARIN SOD 2 MG TAB PO SCH (13:19)
[2018-11-14] MEDS: ACETAMINOPHEN 325 MG TAB PO PRN (13:20)
[2018-11-14] MEDS: NYSTATIN 100,000 U/GM PWD 15GM TP SCH ×2 (13:20→21:29)
--- NOTE | 2018-11-14 13:25 | Hospitalist Progress Note ---
Subjective Progress Notes Subjective 88M admitted for fall and weakness. PRABHU overnight, remains confused at baseline due to dementia. Physical Exam Vital Signs Date Time Temp Pulse Resp B/P (MAP) Pulse Ox O2 Delivery O2 Flow Rate FiO2 11/14/18 12:47 85 20 158/122 (134) 94 Nasal Cannula 3.0 11/14/18 07:25 97.8 11/13/18 08:24 60.0 Intake and Output 11/14/18 06:59 Intake Total 2665 ml Output Total 2425 ml Balance 240 ml Intake Oral 1300 ml IV Total 1365 ml Output Urine Total 2425 ml General Appearance: Awake, No Acute Distress, Afebrile ENT: Normal Cardiovascular: Other (irregularly irregular) Respiratory: No Respiratory Distress GI: Soft and Non-Tender Extremities: Soft and Non Tender, Warm, Pulses, Perfused, Edema (severe pitting edema) Result Diagram: 11/14/1853311/14/18533 Assessment and Plan Problems: (1) Fall Status: Acute Assessment & Plan: Based on history and EMS report, I would suspect he probably had a bradycardic dysrhythmia associated with his a-fib. At this point, the patient does not appear to understand his current situation and his does not want to pursue any aggressive interventions such as transfer for cardiac evaluation/possible pacemaker placement. Holding carvedilol, on telemetry, discussing disposition with family. (2) Bradycardia Status: Acute Assessment & Plan: Holding carvedilol. At this point, his does not wish to pursue any aggressive interventions as noted above. He may have tachy-swathi associated with his chronic a-fib. (3) Atrial fibrillation Status: Chronic Assessment & Plan: Will continue his warfarin for CVA prophylaxis. Stopped carvedilol. (4) Cognitive dysfunction Status: Chronic Assessment & Plan: It sounds like he has had a progressive dementing process based on history from his . He also has significant previous right frontal infarct. At this point, he does not seem to understand much of what is going on. His does seem to understand his current status as well as his prognosis. She has elected to pursue a conservative approach and would like to avoid any aggressive interventions. Considering hospice if no easily reversible inciting factor found. (5) Hypothyroidism Status: Chronic Assessment & Plan: Continue replacement therapy with L-thyroxine 50mcg daily. (6) CAD (coronary artery disease) Status: Chronic Assessment & Plan: He has had previous CABG. His troponin is slightly elevated above negative appears to be stable in equivocal range. (7) Chronic kidney disease Status: Chronic Assessment & Plan: His creatinine was slightly above his baseline of 1.8. Resolved. Exam Sepsis Risk: No Definite Risk BLOUNT PARKER LINARES DO Nov 14, 2018 13:25
--- NOTE | 2018-11-14 14:36 | NUR ---
Occupational Therapy Impression Max Ax2 bed mobility supine to sit and sit<>supine. Max Ax2 sit<>stand with RW and side steps to HOB. VSS throughout, increased blood pressure noted, nursing addressing. Pt c/o of pain in L)LE, otherwise, no complaints. Discussion of discharge disposition. Further rehab is appropriate if plan is to discharge home. Rec EZ lift for nursing staff at this time. Occupational Therapy Goals 1) Pt will be Min A UB/LB dressing. 2) Pt will be Min A toilet task. 3) Pt will be Min A grooming/hygiene. Patient's Goal
[2018-11-14 18:40] VITALS: BP 157/100
[2018-11-14] MEDS ORDERED: FURO-45 PO (19:05)
[2018-11-14] MEDS ORDERED: ALBU8.5H IH (19:05)
[2018-11-14 23:00] VITALS: BP 151/98
[2018-11-15 03:30] VITALS: BP 154/100
[2018-11-15] MEDS: ACETAMINOPHEN 325 MG TAB PO PRN ×2 (03:34→10:03)
[2018-11-15] MEDS: LEVOTHYROXINE SOD 0.05 MG TAB PO SCH (05:15)
[2018-11-15 05:40] LABS: INR 2.43
[2018-11-15 06:55] VITALS: BP 134/86
--- NOTE | 2018-11-15 08:04 | NUR ---
ECF Referral - met with patient who is smiling and laughing, pleasantly confused. He knows he is in the hospital, but he's feeling better. Attempted to discuss F rehab philosophy and he laughed and stated "I will not commit, I think I'll stay here for a year then go home". Given his prayer book upon request. Rehab services have stated that they can provide skilled services with the hopes of getting him stronger and able to go home. PASRR negative. Will have his third midnight 11/15 and if medically stable can be admitted for skilled rehab services.
[2018-11-15] MEDS ORDERED: INFLUENZA VIRUS VAC 0.5ML SYR IM ONLY ONE (09:00)
--- NOTE | 2018-11-15 09:00 | NUR ---
Physical Therapy Impression PT/OT co treat for patient safety with time split for billing purposes. Pt requires encouragement but able to rise from elevated bed with CGA x 2.Pt instructed in marching while standing at EOB prior to initiation of ambulation. Pt tolerated ambulation x3' with RW and close CGA x 2. D/t impulsivity, pt required min-modA x 2 to safely sit in w/c at end of session. Rec sub acute rehab Physical Therapy Goals 1. Pt to be Min/CGA for supine to/from sit transfers 2. Pt to be CGA/SBA for sit to/from stand transfers 3. Pt to ambulate 50' with FWW and pain in manageable range 4. Pt to jyothi up/down one platform step with least restrictive device and SBA/CGA. Patient's Goals
[2018-11-15] MEDS ORDERED: NS(*) 0.9% 250 ML BAG 250 ML IV SCH (09:05)
[2018-11-15] MEDS: NYSTATIN 100,000 U/GM PWD 15GM TP SCH ×2 (09:54→21:49)
[2018-11-15] MEDS: LISINOPRIL 5 MG TAB PO SCH (09:55)
[2018-11-15] MEDS: ERTAPENEM(*) 1 GM VIAL 0.5 GM in NS(*) 0.9% 50 ML BAG 50 ML IVPB SCH (09:58)
--- NOTE | 2018-11-15 10:06 | NUR ---
Occupational Therapy Impression Pt reports feeling improved this date, less anxious. Frequent encouragement and reassurance provided throughout tx. CGA sit<>stand. Min A ambulation x5ft with RW. Mod A stand<>sit due to decreased sequencing and safety awareness. Pt requesting to be wheeled around unit and then sit up in w/c. TABS alarm placed. Rec further rehab prior to discharge home. Occupational Therapy Goals 1) Pt will be Min A UB/LB dressing. 2) Pt will be Min A toilet task. 3) Pt will be Min A grooming/hygiene. Patient's Goal
[2018-11-15 10:10] VITALS: BP 140/79
[2018-11-15] MEDS ORDERED: NS(*) 0.9% 250 ML BAG 250 ML IV PRN (10:10)
--- NOTE | 2018-11-15 11:23 | Hospitalist Progress Note ---
Subjective Progress Notes Subjective He was admitted for fall and weakness. He has no complaints this morning. He had no acute events overnight. He is confused which is baseline. Patient Complains of: Cardiovascular: No: Chest Pain Respiratory: No: Shortness of Breath Physical Exam Vital Signs Date Time Temp Pulse Resp B/P (MAP) Pulse Ox O2 Delivery O2 Flow Rate FiO2 11/15/18 10:10 140/79 (99) 11/15/18 07:30 94 Nasal Cannula 2.0 11/15/18 07:10 70 11/15/18 06:55 98.3 26 11/13/18 08:24 60.0 Intake and Output 11/15/18 07:00 Intake Total 750 ml Output Total 950 ml Balance -200 ml Intake Oral 750 ml Output Urine Total 950 ml # Bowel Movements 1 General Appearance: Alert, Awake, No Acute Distress, Afebrile Neuro: No Gross deficits Cardiovascular: Regular Rate and Rhythm Respiratory: No Respiratory Distress, Clear to Auscultation GI: Soft and Non-Tender Extremities: Edema (2+pitting edema bilateral lower extremities) Psych: Appropriate Mood & Affect Result Diagram: 11/14/1834 11/14/18533 Assessment and Plan Problems: (1) Urinary tract infection Status: Acute Assessment & Plan: He has chronic Craig catheter. His culture grew ESBL infection, E. Coli in urine. He will be started on Ertapenem today. He and his would like to go to [facility] for further abx treatment and further rehab. (2) Fall Status: Acute Assessment & Plan: Based on history and EMS report, I would suspect he probably had a bradycardic dysrhythmia associated with his a-fib. At this point, the patient does not appear to understand his current situation and his does not want to pursue any aggressive interventions such as transfer for cardiac evaluation/possible pacemaker placement. Holding carvedilol, on telemetry, discussing disposition with family. (3) Bradycardia Status: Acute Assessment & Plan: Holding carvedilol. At this point, his does not wish to pursue any aggressive interventions as noted above. He may have tachy-swathi associated with his chronic a-fib. (4) Atrial fibrillation Status: Chronic Assessment & Plan: Will continue his warfarin for CVA prophylaxis. Stopped carvedilol. (5) Cognitive dysfunction Status: Chronic Assessment & Plan: It sounds like he has had a progressive dementing process based on history from his . He also has significant previous right frontal infarct. At this point, he does not seem to understand much of what is going on. His does seem to understand his current status as well as his prognosis. She has elected to pursue a conservative approach and would like to avoid any aggressive interventions. NO longer considering hospice. They would like to treat UTI and re-evaluate after UTI treatment. (6) Hypothyroidism Status: Chronic Assessment & Plan: Continue replacement therapy with L-thyroxine 50mcg daily. (7) CAD (coronary artery disease) Status: Chronic Assessment & Plan: He has had previous CABG. His troponin is slightly elevated above negative appears to be stable in equivocal range. (8) Chronic kidney disease Status: Chronic Assessment & Plan: His creatinine was slightly above his baseline of 1.8. Resolved. Exam Sepsis Risk: No Definite Risk PETRA LEWIS Nov 15, 2018 11:23
--- NOTE | 2018-11-15 11:34 | Antimicrobial Stewardship ---
Antimicrobial Stewardship Empiricly appropriate: Yes Significant PMH: Yes (Bradycardia, afib, cognitive dysfunction, hypothyroidism, CAD, CKD) Support empiric regimen: Yes Approriate Cultures done: Yes (Blood Cx (-) NGTD, Urine Cx - ESBL e. coli - sensitive to ertapenem) Organism identified: Yes Review the antibiotic sensitiv: Yes Renal/Hepatic dosing: Yes (CrCl ~30 ml/min) Determine cumulative duration: 11/15/18 - Day 1 of therapy Determine standard duration: 10 day Comment 88 yo M with a history of bradycardia, afib, cognitive dysfunction, hypothyroidism, CAD, CKD who was found down by his spouse. He was admitted to the medical floor. Tmax wnl WBC wnl Scr 2.1-->1.8 Blood Cx (-) Urine Cx (+) e. coli - ESBL - sens to ertapenem UA 11/13 showed leuk est, WBC 7, moderate urine bacteria, (-) squamous epis INR 1.75, 2.24, 2.43 Received Levofloxacin 750 mg IV x 1 in the ED Started on Ertapenem 500mg IV q24h (CrCl ~30 ml/min) Continue treatment with ertapenem for 7-10 days, considered complicated UTI. Will monitor and follow closely. Brittny Nguyen, PharmD, BCOP BRITTNY NGUYEN Nov 15, 2018 11:34
[2018-11-15] MEDS: WARFARIN SOD 2 MG TAB PO SCH (13:00)
[2018-11-15 13:10] VITALS: BP 148/84
[2018-11-15 19:42] VITALS: BP 165/91
[2018-11-16 05:00] VITALS: BP 135/80
[2018-11-16] MEDS: LEVOTHYROXINE SOD 0.05 MG TAB PO SCH (05:44)
[2018-11-16 06:43] LABS: INR 2.09
[2018-11-16 06:50] LABS: PLATELET COUNT, AUTOMATED 213 K/uL (150-450)
[2018-11-16 08:00] VITALS: BP 162/99
[2018-11-16] MEDS: NYSTATIN 100,000 U/GM PWD 15GM TP SCH (09:00)
[2018-11-16] MEDS ORDERED: FUROSEMIDE 20 MG TAB PO SCH (09:00)
[2018-11-16] MEDS ORDERED: CARVEDILOL 6.25 MG TAB PO SCH (09:00)
[2018-11-16] MEDS: LISINOPRIL 5 MG TAB PO SCH (09:49)
[2018-11-16] MEDS: ERTAPENEM(*) 1 GM VIAL 0.5 GM in NS(*) 0.9% 50 ML BAG 50 ML IVPB SCH (09:50)
--- NOTE | 2018-11-16 11:36 | Transfer Summary (ECF/SWB) ---
Transfer Summary (ECF/B) Problems: (1) Urinary tract infection Status: Acute Assessment & Plan: He has chronic Craig catheter. His culture grew ESBL infection, E. Coli in urine. He was started on Ertapenem 11/15. He and his would like to go to [facility] for further abx treatment and further rehab. (2) Fall Status: Acute Assessment & Plan: Based on history and EMS report, I would suspect he probably had a bradycardic dysrhythmia associated with his a-fib. At this point, the patient does not appear to understand his current situation and his does not want to pursue any aggressive interventions such as transfer for cardiac evaluation/possible pacemaker placement. Holding carvedilol, on telemetry, discussing disposition with family. (3) Bradycardia Status: Acute Assessment & Plan: Holding carvedilol. At this point, his does not wish to pursue any aggressive interventions as noted above. He may have tachy-swathi associated with his chronic a-fib. (4) Atrial fibrillation Status: Chronic Assessment & Plan: Will continue his warfarin for CVA prophylaxis. Stopped carvedilol. (5) Cognitive dysfunction Status: Chronic Assessment & Plan: It sounds like he has had a progressive dementing process based on history from his . He also has significant previous right frontal infarct. At this point, he does not seem to understand much of what is going on. His does seem to understand his current status as well as his prognosis. She has elected to pursue a conservative approach and would like to avoid any aggressive interventions. NO longer considering hospice. They would like to treat UTI and re-evaluate after UTI treatment. (6) Hypothyroidism Status: Chronic Assessment & Plan: Continue replacement therapy with L-thyroxine 50mcg daily. (7) CAD (coronary artery disease) Status: Chronic Assessment & Plan: He has had previous CABG. His troponin is slightly elevated above negative appears to be stable in equivocal range. (8) Chronic kidney disease Status: Chronic Assessment & Plan: His creatinine was slightly above his baseline of 1.8. Resolved. Creatinine 1.5 this morning. Latest Vital Signs Vital Signs Date Time Temp Pulse Resp B/P (MAP) Pulse Ox O2 Delivery O2 Flow Rate FiO2 11/16/18 09:21 Nasal Cannula 11/16/18 08:13 95 2.0 60.0 11/16/18 08:00 98.6 88 22 162/99 (120) Result Diagram: 11/16/1808 11/16/18607 Condition: Improved Disposition: SNF/NH Treatment Goals and Plan Patient requires custodial and/or skilled rehabilitation with the goal to increase independence with ADL's, functional strength and mobility. Continue and adjust medication regimen. PETRA LEWISP Nov 16, 2018 11:36
[2018-11-16] MEDS ORDERED: PRAVASTATIN SOD 20 MG TAB PO SCH (21:00)
== END 2018-11-16 10:55 | DRG 309 ==
LOC: ER 07:38 → MED 09:58
PROVIDERS: ADMIT Internal Medicine; ATTEND Internal Medicine
DX: R00.1 Bradycardia, unspecified (principal); T83.511A Infection and inflammatory reaction due to indwelling urethral catheter, initial encounter; F05 Delirium due to known physiological condition; I48.2 Chronic atrial fibrillation; I25.10 Atherosclerotic heart disease of native coronary artery without angina pectoris; R09.02 Hypoxemia; R53.1 Weakness; B96.20 Unspecified Escherichia coli [E. coli] as the cause of diseases classified elsewhere; F03.90 Unspecified dementia, unspecified severity, without behavioral disturbance, psychotic disturbance, mood disturbance, and anxiety; E03.9 Hypothyroidism, unspecified; N18.9 Chronic kidney disease, unspecified; Z66 Do not resuscitate; I50.9 Heart failure, unspecified; W18.30XA Fall on same level, unspecified, initial encounter; Z95.1 Presence of aortocoronary bypass graft; Z79.01 Long term (current) use of anticoagulants; Z88.0 Allergy status to penicillin
CPT/HCPCS: 36415; 36600; 70450; 71045; 72125; 81001; 82040; 82247; 82310; 82374; 82435; 82565; 82803; 82947; 83605; 83735; 83880; 84075; 84132; 84155; 84295; 84443; 84450; 84460; 84484; 84520; 85025; 85610; 85730; 87040; 87077; 87088; 87186; 93005; 93306; 94660; 96361; 96365; 96375; 97161; 97166; 99285; J1335; J1940; J1956; J7030; J7050

== ENCOUNTER → 2018-11-13 | Outpatient (CLI) | payer MEDICARE, OTHER ==
[~2018-11-13] MED LIST changes: +ALBU8.5H IH
== END ==
LOC: AMB 06:59
PROVIDERS: ATTEND Nurse Practitioner
DX: R06.03 Acute respiratory distress (principal); R41.82 Altered mental status, unspecified; R23.0 Cyanosis
CPT/HCPCS: A0425; A0433

== ENCOUNTER 2018-11-16 10:55 | Inpatient (IN) | payer MEDICARE, OTHER ==
[~2018-11-16] VITALS: Ht 180.3 cm; Wt 88.0 kg
[~2018-11-16 10:55] MED LIST changes: +ALBU8.5H IH
[2018-11-16 12:15] VITALS: BP 130/75
[2018-11-16] MEDS ORDERED: CARVEDILOL 6.25 MG TAB PO SCH (12:28)
[2018-11-16] MEDS ORDERED: FLUSH 10 ML SYR IVP PRN (12:28)
[2018-11-16] MEDS ORDERED: LISINOPRIL 5 MG TAB PO SCH (12:28)
[2018-11-16] MEDS ORDERED: ERTAPENEM(*) 1 GM VIAL 0.5 GM in NS(*) 0.9% 50 ML BAG 50 ML IVPB SCH (12:28)
[2018-11-16] MEDS ORDERED: ALBUTEROL 8 GM INHALER INH PRN (12:40)
[2018-11-16] MEDS: WARFARIN SOD 2 MG TAB PO SCH (13:26)
--- NOTE | 2018-11-16 13:33 | Consultant Pharmacy Review ---
Cutting Department Supervisor Review Medication Review Do All Mecications have a Diag: Yes Pneumococcal Vaccine HX Pneumo Vac ([id number]): Yes (age 82) Comments Regarding the Review * * * * Print * Help Lexicomp Interaction Analysis A = No known interaction C = Monitor therapy X = Avoid combination B = No action needed D = Consider therapy modification Drugs in this analysis: Acetaminophen; Albuterol; Coumadin; INVanz; Lasix; Levothyroxine; Nystatin (Topical); [place]-3 Fatty Acids; Pravachol; Prinivil * Drug-Drug Interactions * C Acetaminophen Coumadin (Vitamin K Antagonists) Depends on Dose C Albuterol (Beta2-Agonists) Lasix (Loop Diuretics) C Coumadin (Anticoagulants) [place]-3 Fatty Acids C Coumadin (Vitamin K Antagonists) Levothyroxine (Thyroid Products) C Coumadin (Vitamin K Antagonists) Pravachol (HMG-CoA Reductase Inhibitors (Statins)) C Lasix (Loop Diuretics) Prinivil (Angiotensin-Converting Enzyme Inhibitors) B Lasix (Furosemide) Levothyroxine (Thyroid Products) Depends on Dose Disclaimer: Readers are advised that decisions regarding drug therapy must be based on the independent judgment of the HILLARY ZAMORA Nov 16, 2018 13:33
--- NOTE | 2018-11-16 14:18 | NUR ---
Physical Therapy Impression PT/OT co-eval completed for pt safety followed by treatment session for ambulation. Pt requires 2 person Mod/Max assist for transfers and ambulation x 5'. Pt demos ability to bear more weight on L) LE, but still indicates pain with weight bearing due to interosseous line by emergency medical team. Pt does become agitated if he chooses not to continue with an activity and is encouraged to do so. Physical Therapy Goals Patient's Goals
--- NOTE | 2018-11-16 14:42 | OT ECF NOTE ---
Type of Note: Initial Note Primary Medical Diagnosis: Generalized weakness Occupational Therapy Evaluation Date: 11/16/18 SUBJECTIVE: Prior Hospitalization: [facility] 11/13/18-11/16/18. (Due to UTI/Fall at home attributed to possible bradycardic dysrhythmia and AFIB) Prior Level of Function: Modified Independent with ADLs. Assist from spouse for IADLs due to dementia. Ambulating with a cane. Patient was going to outpatient PT at [facility]. Goes into the community 3-4x/week with spouse. Prior Living Status: Single level house Spouse Assist by family Community Services: No known needs Home Accessibility: Stairs with rails All needs on one level Equipment Owned: Cane Medical Complications/Past Medical History: hx CABG, [place], CKD, CAD, Afib, Hypothyroidism Psychosocial Support: Supportive spouse Pain Scale (0-10): Occasional discomfort noted in L) LE where I&O in ER occurred. No numerical rating. OBJECTIVE: Strength: MMT: Right Left Shoulder Flexion WFL WFL Elbow Flexion WFL WFL Wrist Extension WFL WFL Display Carver WFL WFL (5= normal, 4= good, 3= fair, 2= poor, 1= trace) ROM: Both upper extremities, WFL Sensation: No paraesthesia reported Functional Transfer: Assistive Device: Front wheeled walker Transfer Ability: 2-person assist, Maximum assistance. Verbal cues for safety and sequencing. ADL: Upper body dressing: Assistive device: Upper body dressing ability: N/T Lower body dressing: Assistive device: Lower body dressing ability: N/T Toileting: Assistive device: Toileting ability: N/T Grooming/hygiene: Assistive device: Grooming ability: N/T Bathing: Assistive device: Bathing ability: N/T Standardized Assessment: Elaine Index of Activities of Daily Livin/10 upon initial evaluation (11/16/18). ASSESSMENT: "Gavino" presents to [facility] requiring 2 person assist with RW or 1 person assist with EZ lift for all transfers and 1-2 person assist for ADLs. At [facility], he was ambulating with a cane and primarily independent with ADLs. He will benefit from skilled OT services to improve functional mobility and optimize independence for ADLs prior to discharge home with spouse. Problem List/Current Limitations: Pain Decreased activity tolerance Decreased strength Generalized weakness Poor safety awareness Memory deficits Decreased problem solving Decreased initiation Confusion Short Term Goals: 1) Pt will be Min A UB/LB dressing. 2) Pt will be Min A toilet task. 3) Pt will SBA grooming, seated. 4) Pt will be Min A shower task. 5) Pt Elaine Index of ADLs score will improve by 2 points. Hand Hardener Goals: Return home with HomeHealth services Patient Goals: Pt anxious, desires to return home Rehabilitation Prognosis: Fair Barriers to Discharge: Cognition, Medical comorbidities, PLAN: The patient will benefit from skilled occupational therapy services 5 times per week for 2 weeks including: Ther ex ADL training Safety training Ther act IADL training Transfer training Adaptive equip training Bed mobility Energy conservation Thank you for this referral. If you have any questions, concerns, or comments about this report or plan, please contact me at . Leny Norman MS, OTR/L Occupational Therapist JENNIFER
[2018-11-16] MEDS: NYSTATIN 100,000 U/GM PWD 15GM TP SCH ×2 (20:16→21:00)
[2018-11-16] MEDS: PRAVASTATIN SOD 20 MG TAB PO SCH (20:17)
[2018-11-17 05:52] LABS: INR 1.93
[2018-11-17] MEDS: LEVOTHYROXINE SOD 0.05 MG TAB PO SCH (06:06)
[2018-11-17 07:30] VITALS: BP 145/84
[2018-11-17] MEDS: FUROSEMIDE 20 MG TAB PO SCH (08:58)
[2018-11-17] MEDS: NYSTATIN 100,000 U/GM PWD 15GM TP SCH ×2 (08:58→19:41)
[2018-11-17] MEDS: OMEGA-3 500 MG CAP PO SCH (08:58)
[2018-11-17] MEDS: MULTIVITAMINS TAB PO SCH (08:58)
--- NOTE | 2018-11-17 09:10 | NUR ---
Occupational Therapy Impression Pt alert, agreeable to OT tx. Anxious throughout tx, encouragement and reassurance provided. Min A sit<>supine bed mobility with HOB raised x2. Mod Ax1 sit<>supine. Max Ax1 sit<>stands x3 with RW. Min Ax1 ambulation x7ft with RW. V/c's for sequencing sit<>stands and management of RW. Total A to don dry brief. Pt seated up in chair with breakfast at end of tx. Declined further needs. Occupational Therapy Goals 1) Pt will be Min A UB/LB dressing. 2) Pt will be Min A toilet task. 3) Pt will SBA grooming, seated. 4) Pt will be Min A shower task. 5) Pt Elaine Index of ADLs score will improve by 2 points. Patient's Goal
[2018-11-17] MEDS: ERTAPENEM(*) 1 GM VIAL 0.5 GM in NS(*) 0.9% 50 ML BAG 50 ML IVPB SCH (10:20)
[2018-11-17] MEDS: NS(*) 0.9% 250 ML BAG 250 ML IV PRN (10:21)
[2018-11-17] MEDS: WARFARIN SOD 2 MG TAB PO SCH (13:09)
--- NOTE | 2018-11-17 14:03 | NUR ---
Physical Therapy Impression Pt requires step by step cues and hand over hand assistance for hand placement prior to initiation of STS transfers, with multiple attempts completed prior to pt rising to stand with modAx2. Pt ambulates with a shuffling gait pattern, requires cues for proximity to walker with ambulation as well as upright posture. Improved tolerance to gait demonstrated today, chair follow provided for patient safety. Physical Therapy Goals Patient's Goals
[2018-11-17 16:02] VITALS: BP 176/89
[2018-11-17] MEDS: LACTOBACILLUS ACIDOPHILUS TAB PO SCH (17:00)
--- NOTE | 2018-11-17 17:02 | NUR ---
agitation pt calling out and demanding to go home. daughter suggested giving pt 12.5 of benadryl which has been used at home. received 1x order for this dose. also received order for probiotic per daughter's request. both medications given spoke to Dr Hernandez about changing pt's HERNAN inhibitor to an ARB. daughter reports HERNAN causes a cough. entered this as an adverse reaction. Dr. hernandez will check on pt's meds and order as he sees appropriate Addendum: 11/17/18 at 1946 by TIARA BO RN pt is now resting in bed and wanting to sleep
[2018-11-17] MEDS: PRAVASTATIN SOD 20 MG TAB PO SCH (19:41)
[2018-11-18] MEDS: LEVOTHYROXINE SOD 0.05 MG TAB PO SCH (05:45)
[2018-11-18 07:20] VITALS: BP 130/45
[2018-11-18 07:30] LABS: INR 1.8
--- NOTE | 2018-11-18 08:52 | Medical Nutrition Therapy ---
Nutrition Anthropometrics Height (Inches): 71.00 Height (Calculated Centimeters: 180.774744 Weight (Pounds): 197 Weight (Calculated Kilograms): 89.358 BMI: 27.5 Rupert Nutrition Score: Adequate Rupert Nutrition Risk Score: 16 Dietary Referral Nutrition Risk Factors: Recent Nutrition Impact Nutrition Risk Comment: Physical Findings Physical Appearance: Overweight BMI 25-29 Skin Appearance Skin Appearance: Edema Edema Location Modifier: Both Edema Location: Legs/Feet Type of Edema: Degree of Edema: 2+ Gastrointestinal Symptoms GI Symtoms: Tube Present: Bowel Sounds: Recent Bowel Pattern: Stool Characteristics: Nutritional Diagnosis Nutritional Risk Acuity 3: Alzheimer's (cognative dysfunction) Nutritional Risk Acuity 4: Good Appetite Past Medical History: CKd, A-fib, hypothyroid, CAD, cognative impairment Nutritional Acuity: 3-Mild Energy Requirement: 2079 (MSJ) Protein Requirement: 80 (.9gm/kg) Fluid Requirement: 2079 (1ml/kcal) Diet Type: Diet as Tolerated WICHO/REG Nutrition Intervention: Cont diet as ordered, Encourage intake, HS snack Drug: Diuretics, Warfarin Drug/Nutrition Recommendations: Check Serum K+ Do Not Serve Any of the Follow: Broccoli, Brussel Sprouts, Spinach, [place]umet Lettuce, Cranberry Juice Nutrition Monitoring & Eval Nutrition Goals: Eat 75-100% Meal RD Patient Assessment Time: [address] Assessment Type: RD Assessment Patient Nutrition Acuity: 3-Mild Follow Up Date: Nov 22, 2018 Nutritional Comment: 11/18 Pt admitted fro weakness following UTI abd fall. Pt on WICHO and eating 75-100% of meals. Pt on k= depeting duiretic. Recommend check K+ lvels. Pt on Warfarin, will avoid high Vit K foods. Will cont to monitor and encourage intake. RENZO GARCIA Nov 18, 2018 08:52
--- NOTE | 2018-11-18 08:53 | NUR ---
Occupational Therapy Impression Pt with increased anxiety this date, poor initiation for engaging in ADLs/mobility. Frequent encouragement and reassurance provided. Total A LB Dressing with Total Ax2 to pull clothing over hips. Mod A UB dressing. Total A managing O2 tubing. Max-Total Ax1-2 stand pivot transfers x3. Pt impulsive, requiring v/c's to sequence task with poor follow through. Pt adamantly refusing mobility, impulsively reaching for w/c. Mod A bed mobility in/out. Pt seated up for breakfast at end of tx. Occupational Therapy Goals 1) Pt will be Min A UB/LB dressing. 2) Pt will be Min A toilet task. 3) Pt will SBA grooming, seated. 4) Pt will be Min A shower task. 5) Pt Elaine Index of ADLs score will improve by 2 points. Patient's Goal
[2018-11-18] MEDS: MULTIVITAMINS TAB PO SCH (09:15)
[2018-11-18] MEDS: OMEGA-3 500 MG CAP PO SCH (09:16)
[2018-11-18] MEDS: FUROSEMIDE 20 MG TAB PO SCH (09:16)
[2018-11-18] MEDS: LACTOBACILLUS ACIDOPHILUS TAB PO SCH ×2 (09:16→16:23)
[2018-11-18] MEDS: NYSTATIN 100,000 U/GM PWD 15GM TP SCH ×2 (09:17→21:00)
[2018-11-18 09:20] VITALS: BP 142/93
--- NOTE | 2018-11-18 09:29 | ECF History & Physical ---
Transfer Summary (ECF/B) Problems: (1) Urinary tract infection Status: Acute Assessment & Plan: He has chronic Craig catheter. His culture grew ESBL infection, E. Coli in urine. He was started on Ertapenem 11/15. He and his would like to go to [facility] for further abx treatment and further rehab. (2) Fall Status: Acute Assessment & Plan: Based on history and EMS report, I would suspect he probably had a bradycardic dysrhythmia associated with his a-fib. At this point, the patient does not appear to understand his current situation and his does not want to pursue any aggressive interventions such as transfer for cardiac evaluation/possible pacemaker placement. Holding carvedilol, on telemetry, discussing disposition with family. (3) Bradycardia Status: Acute Assessment & Plan: Holding carvedilol. At this point, his does not wish to pursue any aggressive interventions as noted above. He may have tachy-swathi associated with his chronic a-fib. (4) Atrial fibrillation Status: Chronic Assessment & Plan: Will continue his warfarin for CVA prophylaxis. Stopped carvedilol. (5) Cognitive dysfunction Status: Chronic Assessment & Plan: It sounds like he has had a progressive dementing process based on history from his . He also has significant previous right frontal infarct. At this point, he does not seem to understand much of what is going on. His does seem to understand his current status as well as his prognosis. She has elected to pursue a conservative approach and would like to avoid any aggressive interventions. NO longer considering hospice. They would like to treat UTI and re-evaluate after UTI treatment. (6) Hypothyroidism Status: Chronic Assessment & Plan: Continue replacement therapy with L-thyroxine 50mcg daily. (7) CAD (coronary artery disease) Status: Chronic Assessment & Plan: He has had previous CABG. His troponin is slightly elevated above negative appears to be stable in equivocal range. (8) Chronic kidney disease Status: Chronic Assessment & Plan: His creatinine was slightly above his baseline of 1.8. Resolved. Creatinine 1.5 this morning. Latest Vital Signs Vital Signs Date Time Temp Pulse Resp B/P (MAP) Pulse Ox O2 Delivery O2 Flow Rate FiO2 11/16/18 09:21 Nasal Cannula 11/16/18 08:13 95 2.0 60.0 11/16/18 08:00 98.6 88 22 162/99 (120) Result Diagram: 11/16/18 0608 11/16/18607 Condition: Improved Disposition: SNF/NH Treatment Goals and Plan Patient requires fpc and/or skilled rehabilitation with the goal to increase independence with ADL's, functional strength and mobility. Continue and adjust medication regimen. PETRA LEWIS Nov 16, 2018 11:36 <Electronically signed by ALMAZ STONE> D/ [id number] 1136 CARITO/DAVON CC: JENNIFER
[2018-11-18] MEDS: ERTAPENEM(*) 1 GM VIAL 0.5 GM in NS(*) 0.9% 50 ML BAG 50 ML IVPB SCH (10:30)
--- NOTE | 2018-11-18 12:31 | NUR ---
Physical Therapy Impression Multiple attempts made to stand to RW and with EZ lift, Pt total assist with no initiation in LEs to complete task. Pt unable to stand. Ther ex performed seated with constant verbal cueing for task and manual assist. Physical Therapy Goals Patient's Goals
[2018-11-18] MEDS: WARFARIN SOD 2 MG TAB PO SCH ×2 (13:00)
[2018-11-18] MEDS: WARFARIN SOD 3 MG TAB PO SCH (13:02)
[2018-11-18 15:30] VITALS: BP 146/66
--- NOTE | 2018-11-18 15:59 | PT ECF NOTE ---
Type of Note: Initial Note Primary Medical Diagnosis: Generalized weakness; UTI, bradycardia associated with A-fib Physical Therapy Evaluation Date: 11/16/18 SUBJECTIVE: Prior Hospitalization: [facility] 11/13/18-11/16/18. (Due to UTI/Fall at home attributed to possible bradycardic dysrhythmia and AFIB) Prior Level of Function: Modified Independent with ADLs. Assist from spouse for IADLs due to dementia. Ambulating with a cane. Patient was going to outpatient PT at [facility]. Goes into the community 3-4x/week with spouse. Prior Living Status: Bi-level house, however, pt remains on one level, requiring him to climb 6 stairs once in the home. Spouse; Assist by family Community Services: No known needs Home Accessibility: Stairs with rails; All needs on one level Equipment Owned: Cane Medical Complications/Past Medical History: hx CABG, [place], CKD, CAD, Afib, Hypothyroidism Psychosocial Support: Supportive spouse Pain Scale (0-10): Occasional discomfort noted in L) LE where IO line was placed by Emergency medical team. No numerical rating. OBJECTIVE: Strength: Pt unable to follow verbal instructions for manual muscle testing. Pt demos decreased active motion, however, also decreased active initiation of movements likely related to progressing dementia. ROM: (please note any abnormalities) Pt does express discomfort when L) LE is moved. Sensation: (please note any abnormalities) No paresthesias noted Other Neuro findings: Previous R) frontal infarct reported; dementia Bed Mobility: Mod/Max assist x 2 Assistive device: Bed rail; Head of bed elevated Transfers: Mod/Max assist x 2 with FWW and total assist if using EZ lift. Assistive Device: Front wheeled walker; EZ/Patient assisted lift Gait: Mod/Max assist; 2-person assist Assistive device: Front wheeled walker Stairs: Not yet addressed Assistive device: Timed Up and Go (>12 seconds indicated increased risk for falls): Unable to ambulate >5' at this time 10 meter walk test (0.6m/second cannot function independently): n/a Other Objective Measures: n/a ASSESSMENT: Pt is limited with regards to cognitive function and motor planning to participate in functional mobility. Additionally, pt is now also limited by pain at L) knee from interosseous line placement emergently. Pt would benefit from therapy to return to prior level of supervised function in the home environment. Problem List/Current Limitations: Pain, Decreased WB, Decreased activity jyothi, Decreased balance, Poor safety awareness, Memory deficits Decreased problem solving, Confusion Short Term Goals: 1. Pt to be Min/Mod assist for bed mobility and supine to/from sit transfers 2. Pt to be Min/Mod assist for sit to/from stand transfers with least restrictive device 3. Pt to ambulate with SBA/Min assist and least restrictive device x 30' with improved pain management 4. Pt to jyothi up/down 6 steps with rail, least restrictive device and SBA/Min assist Penitentiary Goals: Pt to return home with spouse to previous living environment with additional care as needed. Patient Goals: Go home Rehabilitation Prognosis: Fair Barriers for Discharge: Pt currently requires Mod/Max assist x 2 for transfers and mobility. Pt will need to be able to ambulate a short functional distance and tolerate up/down 6 steps with rail in order to be able to return home. PLAN: The patient will benefit from skilled physical therapy services 5 times per week for 2 weeks including: Therapeutic Activities, Transfer Training, Gait Training, Stair Training, ADL's, Safety Training, Pt/Caregiver Training, Bed Mobility Thank you for this referral. If you have any questions, concerns, or comments about this report or plan, please contact me at . h. Vilma Patel, PT, MPT, OMS MTDD
[2018-11-18] MEDS: ACETAMINOPHEN 325 MG TAB PO PRN (16:23)
--- NOTE | 2018-11-18 17:08 | RADIOLOGY IMAGING REPORT ---
FACILITY: [facility] PATIENT NAME: Ovidio Álvarez : 1930 MR: [id number] V: [id number] EXAM DATE: ORDERING PHYSICIAN: PARKER LINARES TECHNOLOGIST: Location: [facility] Patient: Ovidio Álvarez : 1930 Visit/Account:[id number] Date of Sevice: 11/18/2018 CHEST SINGLE AP INDICATION: Temp 102.2, Resp rate 28 COMPARISON: 11/13/2018 FINDINGS: Cardiac silhouette is enlarged. There is increased pulmonary vascular congestion present. New left basilar opacity and a small effus ion is present. Mild CHF pattern is noted throughout the lungs. IMPRESSION: 1. New left lower lobe atelectasis versus infiltrate with small pleural effusion 2. Mild CHF Report Dictated By: Tex Torre at 11/18/2018 5:03 PM Report E-Signed By: Tex Torre at 11/18/2018 5:04 PM WSN:[email or web address]
[2018-11-18] MEDS: PRAVASTATIN SOD 20 MG TAB PO SCH (20:35)
[2018-11-19 06:06] LABS: PLATELET COUNT, AUTOMATED 242 K/uL (150-450)
[2018-11-19] MEDS: LEVOTHYROXINE SOD 0.05 MG TAB PO SCH (06:08)
[2018-11-19 06:23] LABS: INR 1.92
[2018-11-19 07:50] VITALS: BP 138/73
[2018-11-19] MEDS: LACTOBACILLUS ACIDOPHILUS TAB PO SCH ×2 (09:17→17:41)
[2018-11-19] MEDS: LOSARTAN POTASSIUM 50 MG TAB PO SCH (09:17)
[2018-11-19] MEDS: OMEGA-3 500 MG CAP PO SCH (09:17)
[2018-11-19] MEDS: MULTIVITAMINS TAB PO SCH (09:17)
[2018-11-19] MEDS: FUROSEMIDE 20 MG TAB PO SCH (09:18)
[2018-11-19] MEDS: NYSTATIN 100,000 U/GM PWD 15GM TP SCH ×2 (09:18→20:53)
[2018-11-19] MEDS: ERTAPENEM(*) 1 GM VIAL 0.5 GM in NS(*) 0.9% 50 ML BAG 50 ML IVPB SCH (10:11)
[2018-11-19] MEDS ORDERED: WARFARIN SOD 2 MG TAB PO SCH (13:00)
[2018-11-19] MEDS: WARFARIN SOD 2 MG TAB PO SCH (13:03)
[2018-11-19 15:35] VITALS: BP 154/76
[2018-11-19] MEDS: PRAVASTATIN SOD 20 MG TAB PO SCH (20:53)
[2018-11-19] MEDS: ACETAMINOPHEN 325 MG TAB PO PRN (20:53)
[2018-11-20] MEDS: LEVOTHYROXINE SOD 0.05 MG TAB PO SCH (05:21)
[2018-11-20 06:24] LABS: INR 2.08
[2018-11-20 07:35] VITALS: BP 114/75
[2018-11-20] MEDS: OMEGA-3 500 MG CAP PO SCH (08:45)
[2018-11-20] MEDS: LACTOBACILLUS ACIDOPHILUS TAB PO SCH ×2 (08:45→17:11)
[2018-11-20] MEDS: MULTIVITAMINS TAB PO SCH (08:45)
[2018-11-20] MEDS: LOSARTAN POTASSIUM 50 MG TAB PO SCH (08:46)
[2018-11-20] MEDS: FUROSEMIDE 20 MG TAB PO SCH (08:46)
[2018-11-20] MEDS: NYSTATIN 100,000 U/GM PWD 15GM TP SCH ×2 (08:47→21:21)
[2018-11-20] MEDS: ERTAPENEM(*) 1 GM VIAL 0.5 GM in NS(*) 0.9% 50 ML BAG 50 ML IVPB SCH (09:59)
[2018-11-20] MEDS ORDERED: BISACODYL 10 MG SUPP PR PRN (11:50)
[2018-11-20] MEDS: MAGNESIUM HYDROXIDE* 30ML UDCP PO PRN ×2 (12:10→21:21)
--- NOTE | 2018-11-20 12:12 | Antimicrobial Stewardship ---
Antimicrobial Time Out Comments Comments Antimicrobial Stewardship Patient Name: Ovidio Álvarez Unit Number: [id number] Date of : 1930 Patient Status: Discharged Inpatient Attending Doctor: Kamari Briseno MD Antimicrobial Stewardship Antimicrobial Stewardship Empiricly appropriate: Yes Significant PMH: Yes (Bradycardia, afib, cognitive dysfunction, hypothyroidism, CAD, CKD) Support empiric regimen: Yes Approriate Cultures done: Yes (Blood Cx (-) NGTD, Urine Cx - ESBL e. coli - sensitive to ertapenem) Organism identified: Yes Review the antibiotic sensitiv: Yes Renal/Hepatic dosing: Yes (CrCl ~30 ml/min) Determine cumulative duration: 11/15/18 - Day 1 of therapy Determine standard duration: 10 day Comment 88 yo M with a history of bradycardia, afib, cognitive dysfunction, hypothyroi dism, CAD, CKD who was found down by his spouse. He was admitted to the medical floor. Tmax wnl WBC wnl Scr 2.1-->1.8 Blood Cx (-) Urine Cx (+) e. coli - ESBL - sens to ertapenem UA 11/13 showed leuk est, WBC 7, moderate urine bacteria, (-) squamous epis INR 1.75, 2.24, 2.43 Received Levofloxacin 750 mg IV x 1 in the ED Started on Ertapenem 500mg IV q24h (CrCl ~30 ml/min) Continue treatment with ertapenem for 7-10 days, considered complicated UTI. Will monitor and follow closely. Zoila Nguyen, PharmD, BCOP ZOILA NGUYEN Nov 15, 2018 11:34 COPIED FROM INPATIENT REPORT BY NATHANIEL RUELAS Nov 20, 2018 12:12
[2018-11-20] MEDS: WARFARIN SOD 2 MG TAB PO SCH (13:07)
[2018-11-20 15:40] VITALS: BP 125/72
[2018-11-20] MEDS: PRAVASTATIN SOD 20 MG TAB PO SCH (21:21)
[2018-11-20] MEDS: ACETAMINOPHEN 325 MG TAB PO PRN (21:21)
[2018-11-20] MEDS: DOCUSATE SODIUM 100 MG CAP PO SCH (21:21)
[2018-11-21] MEDS: LEVOTHYROXINE SOD 0.05 MG TAB PO SCH (06:19)
[2018-11-21 07:05] LABS: INR 2.16
[2018-11-21 07:10] VITALS: BP 134/78
[2018-11-21] MEDS: LOSARTAN POTASSIUM 50 MG TAB PO SCH (08:39)
[2018-11-21] MEDS: MULTIVITAMINS TAB PO SCH (08:39)
[2018-11-21] MEDS: DOCUSATE SODIUM 100 MG CAP PO SCH ×2 (08:39→21:51)
[2018-11-21] MEDS: NYSTATIN 100,000 U/GM PWD 15GM TP SCH ×2 (08:39→21:51)
[2018-11-21] MEDS: FUROSEMIDE 20 MG TAB PO SCH (08:39)
[2018-11-21] MEDS: LACTOBACILLUS ACIDOPHILUS TAB PO SCH ×2 (08:39→17:53)
[2018-11-21] MEDS: OMEGA-3 500 MG CAP PO SCH (08:39)
--- NOTE | 2018-11-21 08:55 | NUR ---
Occupational Therapy Impression Pt alert, agreeable to OT tx. Significant mood lability. Emotional support and reassurance provided. Set-up grooming, seated. Max Ax1 sit<>stands x2. Min A ambulation x8ft, x3ft with RW. Pt impulsive, desiring to sit with no awareness for safe places to sit. Close w/c follow. Pt adamantly refusing further tx, tearful. Encouragement provided. Pt reporting no further needs at end of tx. Occupational Therapy Goals 1) Pt will be Min A UB/LB dressing. 2) Pt will be Min A toilet task. 3) Pt will SBA grooming, seated. 4) Pt will be Min A shower task. 5) Pt Elaine Index of ADLs score will improve by 2 points. Patient's Goal
[2018-11-21] MEDS: ERTAPENEM(*) 1 GM VIAL 0.5 GM in NS(*) 0.9% 50 ML BAG 50 ML IVPB SCH (09:53)
[2018-11-21] MEDS: NS(*) 0.9% 250 ML BAG 250 ML IV PRN (09:56)
--- NOTE | 2018-11-21 11:51 | Medical Nutrition Therapy ---
Nutrition Anthropometrics Height (Inches): 71.00 Height (Calculated Centimeters: 180.617047 Weight (Pounds): 193 Weight (Calculated Kilograms): 87.600 BMI: 27.5 Rupert Nutrition Score: Adequate Rupert Nutrition Risk Score: 15 Dietary Referral Nutrition Risk Factors: Recent Nutrition Impact Nutrition Risk Comment: Nutritional Diagnosis Nutritional Risk Acuity 3: Alzheimer's (cognative dysfunction) Nutritional Risk Acuity 4: Good Appetite Past Medical History: CKd, A-fib, hypothyroid, CAD, cognative impairment Nutritional Acuity: 3-Mild Energy Requirement: 2079 (MSJ) Protein Requirement: 80 (.9gm/kg) Fluid Requirement: 2079 (1ml/kcal) Diet Type: Diet as Tolerated WICHO/REG Nutrition Intervention: Cont diet as ordered, Encourage intake, HS snack Drug: Diuretics, Warfarin Drug/Nutrition Recommendations: Check Serum K+ Do Not Serve Any of the Follow: Broccoli, Brussel Sprouts, Spinach, [place] Lettuce, Cranberry Juice Nutrition Monitoring & Eval Nutrition Goals: Eat 75-100% Meal RD Patient Assessment Time: [address] Assessment Type: RD Re-Assessment Patient Nutrition Acuity: 3-Mild Follow Up Date: Nov 29, 2018 Nutritional Comment: 11/18 Pt admitted fro weakness following UTI abd fall. Pt on WICHO and eating 75-100% of meals. Pt on k= depeting duiretic. Recommend check K+ lvels. Pt on Warfarin, will avoid high Vit K foods. Will cont to monitor and encourage intake. SENTHIL 11/21 Pt cont on regular diet. Intake average 65%. K+ is WNR. Will cont to monitor and encourage intake. RENZO GARCIA Nov 21, 2018 11:50
[2018-11-21] MEDS: WARFARIN SOD 3 MG TAB PO SCH (13:05)
--- NOTE | 2018-11-21 15:23 | NUR ---
Physical Therapy Impression Pt adamantly declined participation with therapy. Educated pt on the need to ambulate to reduce chances of blood clots. Discussed potential need for SCD's and/or riley pottse with nsg. They noted they would discuss this further with the MD. Will attempt PT again tomorrow. Physical Therapy Goals 1. Pt to be Min/Mod assist for bed mobility and supine to/from sit transfers 2. Pt to be Min/Mod assist for sit to/from stand transfers with least restrictive device 3. Pt to ambulate with SBA/Min assist and least restrictive device x 30' with improved pain management 4. Pt to jyothi up/down 6 steps with rail, least restrictive device and SBA/Min assist Patient's Goals
[2018-11-21 15:52] VITALS: BP 140/61
[2018-11-21] MEDS: PRAVASTATIN SOD 20 MG TAB PO SCH (21:51)
--- NOTE | 2018-11-21 21:58 | NUR ---
pt. refused riley mcfarland X2
[2018-11-22] MEDS: LEVOTHYROXINE SOD 0.05 MG TAB PO SCH (05:42)
[2018-11-22 07:24] LABS: INR 2.57
[2018-11-22 07:30] VITALS: BP 123/64
[2018-11-22] MEDS: LOSARTAN POTASSIUM 50 MG TAB PO SCH (08:55)
[2018-11-22] MEDS: OMEGA-3 500 MG CAP PO SCH (08:55)
[2018-11-22] MEDS: MULTIVITAMINS TAB PO SCH (08:55)
[2018-11-22] MEDS: FUROSEMIDE 20 MG TAB PO SCH (08:55)
[2018-11-22] MEDS: NYSTATIN 100,000 U/GM PWD 15GM TP SCH ×2 (08:55→20:52)
[2018-11-22] MEDS: LACTOBACILLUS ACIDOPHILUS TAB PO SCH ×2 (08:55→16:56)
[2018-11-22] MEDS: DOCUSATE SODIUM 100 MG CAP PO SCH ×2 (08:55→20:43)
--- NOTE | 2018-11-22 09:56 | NUR ---
Occupational Therapy Impression Pt alert and agreeable to OT tx with encouragement. Pt anxious throughout tx, responds well with increased time and reassurance to complete tasks. Mod Ax1 supine to sit with HOB raised. Min A sit<>stands x2. Min A ambulation x5ft with RW. Pt then impulsively sitting, requiring v/c's for safe transfers and use of RW. Total A UB/LB dressing (including donning of riley hose). Set-up grooming seated. Pt with limited initiation for tasks. Will likely benefit from 24/ care and supervision upon discharge. Occupational Therapy Goals 1) Pt will be Min A UB/LB dressing. 2) Pt will be Min A toilet task. 3) Pt will SBA grooming, seated. 4) Pt will be Min A shower task. 5) Pt Elaine Index of ADLs score will improve by 2 points. Patient's Goal
[2018-11-22] MEDS: ERTAPENEM(*) 1 GM VIAL 0.5 GM in NS(*) 0.9% 50 ML BAG 50 ML IVPB SCH (10:15)
[2018-11-22] MEDS: WARFARIN SOD 2 MG TAB PO SCH (13:47)
--- NOTE | 2018-11-22 14:11 | NUR ---
Physical Therapy Impression PT present with remainder of care team for care conference lasing from [id number]; however, time is non-billable as Pt was only present for 9 minutes of this time. Physical Therapy Goals 1. Pt to be Min/Mod assist for bed mobility and supine to/from sit transfers 2. Pt to be Min/Mod assist for sit to/from stand transfers with least restrictive device 3. Pt to ambulate with SBA/Min assist and least restrictive device x 30' with improved pain management 4. Pt to jyothi up/down 6 steps with rail, least restrictive device and SBA/Min assist Patient's Goals
[2018-11-22 16:50] VITALS: BP 147/86
[2018-11-22] MEDS: ACETAMINOPHEN 325 MG TAB PO PRN (20:43)
[2018-11-22] MEDS: PRAVASTATIN SOD 20 MG TAB PO SCH (20:51)
[2018-11-23] MEDS: LEVOTHYROXINE SOD 0.05 MG TAB PO SCH (05:23)
[2018-11-23 06:51] LABS: INR 2.81
[2018-11-23 08:00] VITALS: BP 135/66
[2018-11-23] MEDS: NYSTATIN 100,000 U/GM PWD 15GM TP SCH ×2 (08:57→20:15)
[2018-11-23] MEDS: MULTIVITAMINS TAB PO SCH (08:57)
[2018-11-23] MEDS: FUROSEMIDE 20 MG TAB PO SCH (08:59)
[2018-11-23] MEDS: LACTOBACILLUS ACIDOPHILUS TAB PO SCH ×2 (08:59→16:43)
[2018-11-23] MEDS: DOCUSATE SODIUM 100 MG CAP PO SCH ×2 (08:59→20:15)
[2018-11-23] MEDS: LOSARTAN POTASSIUM 50 MG TAB PO SCH (08:59)
[2018-11-23] MEDS: OMEGA-3 500 MG CAP PO SCH (09:02)
--- NOTE | 2018-11-23 10:00 | NUR ---
Received call from daughter @ ~ 0930 Aleida requesting information from the care conference. As instructed during the care conference by the , John, I informed Aleida of her dad's status and the request to explore Hospice options. Her voice was raised "He's not dying, I don't want this, I'll bring him to live with me". Informed that John is her father's and the designated power of civil attorney. She stated she would contact an civil attorney as she is questioning the competence of John, spouse due to her cancer. arrived on unit stating she had received a call from Aleida accusing her of "killing my father". Discussed plan of hospice evaluation by MD this afternoon. Also discussed desire of Aleida to bring her father to [place] to care for him. "I just don't think he could make the trip, and then how would I be able to see him. He is my and I love him." Informed by Celeste Osorio that Aleida had called stating she wanted to speak to the hospitalist and she was insisting in being a part of the decision making. Char Parham contacted to update her of the situation. She had discussed the case with Hospice and they stated Dementia is not criteria to admit to Hospice. Will discuss with MD when she rounds today.
[2018-11-23] MEDS: ERTAPENEM(*) 1 GM VIAL 0.5 GM in NS(*) 0.9% 50 ML BAG 50 ML IVPB SCH (10:27)
--- NOTE | 2018-11-23 10:46 | NUR ---
[facility] stating that Aleida, resident's daughter contacted him. He is concerned that daughter will take all legal means to prevent her father from being admitted to Hospice. He will be in contact with John, the . Contacted daughter, Aleida - explained that a Hospice referral has NOT been made, that this is the request of the to explore this option with the MD this afternoon. She is requesting to speak to the MD, I will relay this request to Celeste Briseno. She reports she is willing to aggressively and legally fight this to ensure her father gets the appropriate care. Listened empathetically, encouraged to not alienate the resident's so open communication can occur.
--- NOTE | 2018-11-23 12:26 | NUR ---
Physical Therapy Impression Pt pleasant and agreeable to attempt therapy this date. Verbalizes the desire to ambulate. Pt unable to stand from W/C with three attempts and Max A. Pt at this time requesting to be wheeled out to dining room for lunch. Pt able to scoot in W/C independently to reposition. Notified nursing of the unsuccessful attempt to ambulate. Pt will require 24 hr assist upon D/C. Physical Therapy Goals 1. Pt to be Min/Mod assist for bed mobility and supine to/from sit transfers 2. Pt to be Min/Mod assist for sit to/from stand transfers with least restrictive device 3. Pt to ambulate with SBA/Min assist and least restrictive device x 30' with improved pain management 4. Pt to jyothi up/down 6 steps with rail, least restrictive device and SBA/Min assist Patient's Goals
[2018-11-23] MEDS: WARFARIN SOD 2 MG TAB PO SCH (13:27)
--- NOTE | 2018-11-23 13:50 | NUR ---
Discussed case with Dr. Celeste Briseno at length. Her recommendation is to have Hospice evaluate the resident to see if he qualifies for their services. She was made aware of the daughter's concern, however the is the next of kin and decision maker. Attempted to contact daughter Aleida with this information and Dr. Briseno was willing to talk to her on a basic level, no answer, unable to leave a voice mail.
--- NOTE | 2018-11-23 13:55 | NUR ---
Occupational Therapy Impression Mod Ax1 sit<>stand with EZ lift. Max Ax1 sit to supine and supine to sit bed mobility. Mod Ax1 stand step pivot bed<>w/c with RW. Pt impulsive, requiring v/c's for safety. Pt requesting to sit up in w/c and read the newspaper. 10 minutes non-billable for nursing to obtain pt weight and administer medications. Rec 22/02 supervision. Occupational Therapy Goals 1) Pt will be Min A UB/LB dressing. 2) Pt will be Min A toilet task. 3) Pt will SBA grooming, seated. 4) Pt will be Min A shower task. 5) Pt Elaine Index of ADLs score will improve by 2 points. Patient's Goal
--- NOTE | 2018-11-23 15:17 | Hospitalist Progress Note ---
Physical Exam Vital Signs Date Time Temp Pulse Resp B/P (MAP) Pulse Ox O2 Delivery O2 Flow Rate FiO2 11/23/18 10:14 98 Nasal Cannula 2.0 11/23/18 08:00 98.0 94 26 135/66 (89) Intake and Output 11/23/18 07:00 Intake Total 323 ml Output Total 825 ml Balance -502 ml Intake Oral 240 ml IV Total 83 ml Output Urine Total 825 ml # Voids 1 # Bowel Movements 1 Result Diagram: 11/19/1854211/19/18542 Assessment and Plan Problems: (1) Urinary tract infection Status: Acute Assessment & Plan: He has chronic Craig catheter. His culture grew ESBL infection, E. Coli in urine. He was started on Ertapenem 11/15. He was transferred to [facility] for further abx treatment and further rehab. (2) Fall Status: Acute Assessment & Plan: Based on history and EMS report, I would suspect he probably had a bradycardic dysrhythmia associated with his a-fib. At this point, the patient does not appear to understand his current situation and his does not want to pursue any aggressive interventions such as transfer for cardiac evaluation/possible pacemaker placement. We are currently holding carvedilol. Discussing disposition with family. The patient will need 24/ care at home due to his dementia. Considering Hospice or other placement. (3) Bradycardia Status: Acute Assessment & Plan: Holding carvedilol. At this point, his does not wish to pursue any aggressive interventions as noted above. He may have tachy-swathi associated with his chronic a-fib. (4) Atrial fibrillation Status: Chronic Assessment & Plan: Will continue his warfarin for CVA prophylaxis. Stopped carvedilol. (5) Cognitive dysfunction Status: Chronic Assessment & Plan: It sounds like he has had a progressive dementing process based on history from his . He also has significant previous right frontal infarct. At this point, he does not seem to understand much of what is going on. His does seem to understand his current status as well as his prognosis. She has elected to pursue a conservative approach and would like to avoid any aggressive interventions. His is once again considering Hospice. Will ask for Hospice to evaluate. Will re-evaluate after UTI treatment. His antibiotics will be completed 11/24. (6) Hypothyroidism Status: Chronic Assessment & Plan: Continue replacement therapy with L-thyroxine 50mcg daily. (7) CAD (coronary artery disease) Status: Chronic Assessment & Plan: He has had previous CABG. His troponin is slightly elevated above negative appears to be stable in equivocal range. (8) Chronic kidney disease Status: Chronic Assessment & Plan: His creatinine was slightly above his baseline of 1.8. Resolved. Creatinine 1.4 this morning. Time Spent on Plan of Care: < 30 min HILLARY GONZALEZ MD Nov 23, 2018 15:17
--- NOTE | 2018-11-23 15:24 | NUR ---
Contacted Aleida, informed her that we would have Hospice to evaluate if her father would qualify for hospice services. It does not look like his dementia will qualify him. She was very relieved. Informed we were still recommending 22/02 care. She understands this and asked if he would discharge from here to another facility to provide that care. She does not want him returning home in the care of her stepmother. Héctor Parham SW in office as witness to phone call.
[2018-11-23 15:50] VITALS: BP 126/80
[2018-11-23] MEDS: PRAVASTATIN SOD 20 MG TAB PO SCH (20:15)
[2018-11-24] MEDS: LEVOTHYROXINE SOD 0.05 MG TAB PO SCH (06:21)
[2018-11-24 06:35] LABS: INR 2.8
[2018-11-24 08:45] VITALS: BP 143/71
--- NOTE | 2018-11-24 09:01 | NUR ---
Occupational Therapy Impression Pt. required Mod A x2 to perform sit to stand transfer and ambulate 5 feet with use of FWW. Pt. refused to ambulate any further insisting upon sitting in w/c. Pt. on 2 L of O2. Pt. required Max A to perform UB/LB dressing activities. Continue with POC. Occupational Therapy Goals 1) Pt will be Min A UB/LB dressing. 2) Pt will be Min A toilet task. 3) Pt will SBA grooming, seated. 4) Pt will be Min A shower task. 5) Pt Elaine Index of ADLs score will improve by 2 points. Patient's Goal
[2018-11-24] MEDS: DOCUSATE SODIUM 100 MG CAP PO SCH ×2 (09:21→20:20)
[2018-11-24] MEDS: FUROSEMIDE 20 MG TAB PO SCH (09:22)
[2018-11-24] MEDS: NYSTATIN 100,000 U/GM PWD 15GM TP SCH ×2 (09:22→20:20)
[2018-11-24] MEDS: LACTOBACILLUS ACIDOPHILUS TAB PO SCH ×2 (09:22→16:48)
[2018-11-24] MEDS: OMEGA-3 500 MG CAP PO SCH (09:22)
[2018-11-24] MEDS: MULTIVITAMINS TAB PO SCH (09:22)
[2018-11-24] MEDS: LOSARTAN POTASSIUM 50 MG TAB PO SCH (09:22)
[2018-11-24] MEDS ORDERED: ERTAPENEM(*) 1 GM VIAL 0.5 GM in NS(*) 0.9% 50 ML BAG 50 ML IVPB SCH (10:00)
[2018-11-24] MEDS: WARFARIN SOD 2 MG TAB PO SCH (13:14)
--- NOTE | 2018-11-24 15:08 | NUR ---
Physical Therapy Impression Pt confused and emotional throughout session. He requires mod-maxA for STS transfers with use of RW with step by step verbal cues. With significant encouragment, pt ambulated approx 5 steps with RW, but then impulsively attempted to sit in nearby w/c, requiring maxA to prevent fall to ground. Pt is progressing minimally with PT intervention and will likely require LT care placement. Physical Therapy Goals 1. Pt to be Min/Mod assist for bed mobility and supine to/from sit transfers 2. Pt to be Min/Mod assist for sit to/from stand transfers with least restrictive device 3. Pt to ambulate with SBA/Min assist and least restrictive device x 30' with improved pain management 4. Pt to jyothi up/down 6 steps with rail, least restrictive device and SBA/Min assist Patient's Goals
[2018-11-24 16:35] VITALS: BP 169/91
[2018-11-24] MEDS: PRAVASTATIN SOD 20 MG TAB PO SCH (20:20)
[2018-11-25] MEDS: LEVOTHYROXINE SOD 0.05 MG TAB PO SCH (06:07)
[2018-11-25 06:32] LABS: INR 2.69
[2018-11-25 07:40] VITALS: BP 120/46
[2018-11-25] MEDS: OMEGA-3 500 MG CAP PO SCH (09:06)
[2018-11-25] MEDS: LACTOBACILLUS ACIDOPHILUS TAB PO SCH ×2 (09:06→16:58)
[2018-11-25] MEDS: DOCUSATE SODIUM 100 MG CAP PO SCH ×2 (09:06→21:00)
[2018-11-25] MEDS: MULTIVITAMINS TAB PO SCH (09:06)
[2018-11-25] MEDS: LOSARTAN POTASSIUM 50 MG TAB PO SCH (09:06)
[2018-11-25] MEDS: NYSTATIN 100,000 U/GM PWD 15GM TP SCH ×2 (09:06→21:00)
[2018-11-25] MEDS: FUROSEMIDE 20 MG TAB PO SCH (09:07)
[2018-11-25] MEDS: WARFARIN SOD 2 MG TAB PO SCH (12:36)
--- NOTE | 2018-11-25 14:12 | NUR ---
Physical Therapy Impression Verbal cueing for sit<>stand technique and additional time to perform task. Initially, Pt required Mod A to maintain standing. With ambulation, Pt able to ambulate 8' using RW, CGA, encouragement, and extra time to perform. Physical Therapy Goals 1. Pt to be Min/Mod assist for bed mobility and supine to/from sit transfers 2. Pt to be Min/Mod assist for sit to/from stand transfers with least restrictive device 3. Pt to ambulate with SBA/Min assist and least restrictive device x 30' with improved pain management 4. Pt to jyothi up/down 6 steps with rail, least restrictive device and SBA/Min assist Patient's Goals
[2018-11-25 15:50] VITALS: BP 169/72
[2018-11-25] MEDS: ACETAMINOPHEN 325 MG TAB PO PRN (16:10)
[2018-11-25] MEDS: PRAVASTATIN SOD 20 MG TAB PO SCH (21:00)
[2018-11-26 06:24] LABS: INR 3.02
[2018-11-26] MEDS: LEVOTHYROXINE SOD 0.05 MG TAB PO SCH (06:35)
[2018-11-26 07:20] VITALS: BP 138/92
[2018-11-26] MEDS: LACTOBACILLUS ACIDOPHILUS TAB PO SCH ×2 (08:45→17:39)
[2018-11-26] MEDS: OMEGA-3 500 MG CAP PO SCH (08:46)
[2018-11-26] MEDS: MULTIVITAMINS TAB PO SCH (08:46)
[2018-11-26] MEDS: FUROSEMIDE 20 MG TAB PO SCH (08:46)
[2018-11-26] MEDS: DOCUSATE SODIUM 100 MG CAP PO SCH ×2 (08:46→21:21)
[2018-11-26] MEDS: LOSARTAN POTASSIUM 50 MG TAB PO SCH (08:46)
[2018-11-26] MEDS ORDERED: PNEUMOCOC VAC POLY 25MCG/0.5ML IM ONLY ONE (09:00)
[2018-11-26] MEDS: NYSTATIN 100,000 U/GM PWD 15GM TP SCH ×2 (09:47→21:21)
[2018-11-26] MEDS: WARFARIN SOD 2 MG TAB PO SCH (12:48)
[2018-11-26 15:50] VITALS: BP 144/83
[2018-11-26] MEDS: PRAVASTATIN SOD 20 MG TAB PO SCH (21:21)
[2018-11-27] MEDS: LEVOTHYROXINE SOD 0.05 MG TAB PO SCH (05:44)
[2018-11-27 07:20] LABS: INR 2.98
[2018-11-27] MEDS: LOSARTAN POTASSIUM 50 MG TAB PO SCH (08:18)
[2018-11-27] MEDS: NYSTATIN 100,000 U/GM PWD 15GM TP SCH ×2 (08:18→21:04)
[2018-11-27] MEDS: MULTIVITAMINS TAB PO SCH (08:18)
[2018-11-27] MEDS: OMEGA-3 500 MG CAP PO SCH (08:18)
[2018-11-27] MEDS: LACTOBACILLUS ACIDOPHILUS TAB PO SCH ×2 (08:18→17:17)
[2018-11-27] MEDS: FUROSEMIDE 20 MG TAB PO SCH (08:18)
[2018-11-27] MEDS: DOCUSATE SODIUM 100 MG CAP PO SCH ×2 (08:18→21:03)
[2018-11-27 08:30] VITALS: BP 143/83
[2018-11-27] MEDS: WARFARIN SOD 2 MG TAB PO SCH (13:36)
[2018-11-27 14:55] VITALS: BP 150/89
[2018-11-27] MEDS: PRAVASTATIN SOD 20 MG TAB PO SCH (21:03)
[2018-11-27] MEDS: ACETAMINOPHEN 325 MG TAB PO PRN (21:03)
[2018-11-28] MEDS: LEVOTHYROXINE SOD 0.05 MG TAB PO SCH (05:40)
[2018-11-28 06:25] LABS: INR 3.08
[2018-11-28 07:40] VITALS: BP 140/84
[2018-11-28] MEDS: OMEGA-3 500 MG CAP PO SCH (08:57)
[2018-11-28] MEDS: LOSARTAN POTASSIUM 50 MG TAB PO SCH (08:57)
[2018-11-28] MEDS: FUROSEMIDE 20 MG TAB PO SCH (08:57)
[2018-11-28] MEDS: NYSTATIN 100,000 U/GM PWD 15GM TP SCH ×2 (08:57→21:27)
[2018-11-28] MEDS: LACTOBACILLUS ACIDOPHILUS TAB PO SCH ×2 (08:57→17:09)
[2018-11-28] MEDS: DOCUSATE SODIUM 100 MG CAP PO SCH ×2 (08:57→21:27)
[2018-11-28] MEDS: MULTIVITAMINS TAB PO SCH (08:57)
--- NOTE | 2018-11-28 12:57 | NUR ---
Physical Therapy Impression Pt with improved ability to stand and tolerance to ambulation. Pt required Mod A x2 to stand and CGA to ambulate 15' with RW and cueing for use. Physical Therapy Goals 1. Pt to be Min/Mod assist for bed mobility and supine to/from sit transfers 2. Pt to be Min/Mod assist for sit to/from stand transfers with least restrictive device 3. Pt to ambulate with SBA/Min assist and least restrictive device x 30' with improved pain management 4. Pt to jyothi up/down 6 steps with rail, least restrictive device and SBA/Min assist Patient's Goals
[2018-11-28] MEDS ORDERED: WARFARIN SOD 3 MG TAB PO SCH (13:00)
--- NOTE | 2018-11-28 13:24 | Medical Nutrition Therapy ---
Nutrition Anthropometrics Height (Inches): 71.00 Height (Calculated Centimeters: 180.321032 Weight (Pounds): 195 Weight (Calculated Kilograms): 88.451 BMI: 27.5 Rupert Nutrition Score: Adequate Rupert Nutrition Risk Score: 15 Dietary Referral Nutrition Risk Factors: Recent Nutrition Impact Nutrition Risk Comment: Physical Findings Physical Appearance: Overweight BMI 25-29 Skin Appearance Skin Appearance: Edema Edema Location Modifier: Both Edema Location: Hand Type of Edema: Degree of Edema: 1+ Gastrointestinal Symptoms GI Symtoms: Constipation Tube Present: Bowel Sounds: Recent Bowel Pattern: Stool Characteristics: Nutritional Diagnosis Nutritional Risk Acuity 3: Fair Appetite, Alzheimer's (cognative dysfunction) Nutritional Risk Acuity 4: Good Appetite Past Medical History: CKd, A-fib, hypothyroid, CAD, cognative impairment Nutritional Acuity: 3-Mild Energy Requirement: 2079 (MSJ) Protein Requirement: 80 (.9gm/kg) Fluid Requirement: 2079 (1ml/kcal) Diet Type: Diet as Tolerated WICHO/REG Nutrition Intervention: Cont diet as ordered, Encourage intake, HS snack Drug: Diuretics, Warfarin Do Not Serve Any of the Follow: Broccoli, Brussel Sprouts, Spinach, [place] Lettuce, Cranberry Juice Nutrition Monitoring & Eval Nutrition Goals: Eat 75-100% Meal Nutrition Follow-Up: Fair Intake RD Patient Assessment Time: [address] Assessment Type: RD Re-Assessment Patient Nutrition Acuity: 3-Mild Follow Up Date: December 06, 2018 Nutritional Comment: 11/18 Pt admitted fro weakness following UTI abd fall. Pt on WICHO and eating 75-100% of meals. Pt on k+ depeting duiretic. Recommend check K+ lvels. Pt on Warfarin, will avoid high Vit K foods. Will cont to monitor and encourage intake. BK 11/21 Pt cont on regular diet. Intake average 65%. K+ is WNR. Will cont to monitor and encourage intake. BK 11/28 Pt cont on reular diet. Intake average 58%. Wt is down a desired 11% from 11/13 on med unit. Pt had 3+ BLE edema and on a duiretic. Curretnly pt had 2+ edema to legs/feet. Anticipate further wt loss when edema resolves. RENZO GARCIA Nov 28, 2018 13:24
--- NOTE | 2018-11-28 13:40 | NUR ---
Occupational Therapy Impression Co-treat with PT. Pt. ambulated 15 feet with close w/c following behind. Pt. at 86% on room air, therefore was placed on 2 L of O2. Pt. requiring verbal cues for hand placement during sit to stand transfer. Pt. pulled up on walker to transfer to stand. Continue with POC. Occupational Therapy Goals 1) Pt will be Min A UB/LB dressing. 2) Pt will be Min A toilet task. 3) Pt will SBA grooming, seated. 4) Pt will be Min A shower task. 5) Pt Elaine Index of ADLs score will improve by 2 points. Patient's Goal
[2018-11-28 17:05] VITALS: BP 126/66
[2018-11-28] MEDS: PRAVASTATIN SOD 20 MG TAB PO SCH (21:27)
[2018-11-29] MEDS: LEVOTHYROXINE SOD 0.05 MG TAB PO SCH (05:50)
[2018-11-29 06:18] LABS: INR 2.9
--- NOTE | 2018-11-29 06:48 | Hospitalist Depart ---
Discharge Summary Reason for Hosp/Final Diag: (1) Urinary tract infection Status: Acute Hospital Course & Plan: He has chronic Craig catheter. His culture grew ESBL infection, E. Coli in urine. He was started on Ertapenem 11/15 and completed 10 days treatment. He was transferred to [facility] for further abx treatment and further rehab. He will now be transferred to [facility]. (2) Fall Status: Acute Hospital Course & Plan: Based on history and EMS report, we suspect he probably had a bradycardic dysrhythmia associated with his a-fib. At this point, the patient does not appear to understand his current situation and his does not want to pursue any aggressive interventions such as transfer for cardiac evaluation/possible pacemaker placement. We will stop carvedilol. The patient will need 24/7 care at home due to his dementia. (3) Bradycardia Status: Acute Hospital Course & Plan: Holding carvedilol. At this point, his does not wish to pursue any aggressive interventions as noted above. He may have tachy- swathi associated with his chronic a-fib. (4) Atrial fibrillation Status: Chronic Hospital Course & Plan: Will continue his warfarin for CVA prophylaxis. Stopped carvedilol. (5) Cognitive dysfunction Status: Chronic Hospital Course & Plan: It sounds like he has had a progressive dementing process based on history from his . He also has significant previous right frontal infarct. At this point, he does not seem to understand much of what is going on. His does seem to understand his current status as well as his prognosis. She has elected to pursue a conservative approach and would like to avoid any aggressive interventions. (6) Hypothyroidism Status: Chronic Hospital Course & Plan: Continue replacement therapy with L-thyroxine 50mcg daily. (7) CAD (coronary artery disease) Status: Chronic Hospital Course & Plan: He has had previous CABG. His troponin is slightly elevated above negative appears to be stable in equivocal range. (8) Chronic kidney disease Status: Chronic Hospital Course & Plan: His creatinine was slightly above his baseline of 1.8. Resolved. Creatinine now 1.4. Departure Latest Vital Signs Vital Signs 11/28/18 11/29/18 17:05 00:52 Temp 97.0 Pulse 106 Resp 20 B/P (MAP) 126/66 (86) Pulse Ox 91 O2 Delivery Nasal Cannula O2 Flow Rate 2.0 Weight (Pounds): 194 Weight (Ounces): 5.0 Condition: Improved Discharge: Snf PT/OT Follow Up For: PT For Strengthening, OT For ADL's, PT Evaluation and Treat, ST Evaluation and Treat, OT Evaluation and Treat Discharge Instructions Home Meds Reported Medications Albuterol Sulfate 90 Mcg/Act (PROAIR HFA 90 MCG/ACT) 8.5 Gm Hfa.aer.ad, 2 PUFF IH Q4-6H PRN for SHORTNESS OF BREATH, INHALER 11/14/18 Furosemide (FUROSEMIDE) 20 Mg Tablet, 1 TAB PO QDAY, TAB 11/14/18 Magnesium Oxide (MAGNESIUM OXIDE) 250 Mg Tablet, 250 MG PO QDAY 07/05/18 Levothyroxine Sodium (LEVOTHYROXINE SODIUM) 50 Mcg Tablet, 50 MCG PO QDAY, TAB 07/05/18 Oxygen (Oxygen) 2 L Inha, 2 L INH DAILY 12/15/12 Multivitamins W-Minerals (Multiple Vitamin) 1 Tab Tablet, 1 TAB PO DAILY 12/15/12 Fish Oil/Dha/Epa (FISH OIL 1,200 MG FISH OIL) 1 Each Capsule, 1 EACH PO DAILY 12/15/12 Acetaminophen (Tylenol) 325 Mg Tab, 650 MG PO Q6H PRN 12/15/12 Warfarin Sod (Coumadin (Or Equiv)) 2 Mg Tab, 2 MG PO QDAY WEDNESDAY, WEDNESDAY, WEDNESDAY, WEDNESDAY. It is very important that you take your coumadin exactly as prescribed, have blood work to monitor your PT/INR values, and follow up with your health care provider as prescribed. Diet and medication can affect the PT/INR level. Keep your diet pretty much the same day to day. Many foods contain Vitamin K which helps blood to clot and can affect the way your coumadin works. You don't need to avoid foods that have Vitamin K, but you do need to eat about the same amount of them every day. Be sure to tell your provider before changing your diet for any reason (weight loss, illness, etc.) Do not start or discontinue any medications, prescribed or over the counter, except on the advise of your provider or pharmacist. Coumadin (Warfarin) increases the risk of bleeding. 10/19/12 Pravastatin Sod (PRAVACHOL (OR EQUIV)) 20 Mg Tab, 20 MG PO HS, #90 06/26/12 Discontinued Reported Medications Lisinopril (LISINOPRIL) 5 Mg Tablet, 5 MG PO QDAY HOLD FOR (S) BP LOWER THAN 120 09/18/13 Carvedilol (CARVEDILOL) 25 Mg Tablet, 12.5 MG PO BID, TAB TAKE ONE half TABLET BY MOUTH TWICE A DAY 09/17/13 Diet: Regular Activity: As Tolerated Special Instructions: Keep in Craig Catheter. Take Medications as prescribed. Draw INR Wednesday12/02/18. Stop Carvedilol. Copies to: CAM SEGAL MD ; Venous Thromboembolism Antithrombotics Is Pt On Any Antithrombotics?: Yes PETRA LEWIS RESOURCE DEVELOPMENT DIRECTOR Nov 29, 2018 06:48
[2018-11-29 08:10] VITALS: BP 146/87
[2018-11-29] MEDS: LOSARTAN POTASSIUM 50 MG TAB PO SCH (08:55)
[2018-11-29] MEDS: OMEGA-3 500 MG CAP PO SCH (08:55)
[2018-11-29] MEDS: LACTOBACILLUS ACIDOPHILUS TAB PO SCH (08:55)
[2018-11-29] MEDS: MULTIVITAMINS TAB PO SCH (08:55)
[2018-11-29] MEDS: DOCUSATE SODIUM 100 MG CAP PO SCH (08:55)
[2018-11-29] MEDS: NYSTATIN 100,000 U/GM PWD 15GM TP SCH (08:56)
[2018-11-29] MEDS: FUROSEMIDE 20 MG TAB PO SCH (08:56)
[2018-11-29] MEDS: WARFARIN SOD 2 MG TAB PO SCH (12:30)
--- NOTE | 2018-11-29 12:48 | NUR ---
Physical Therapy Impression Pt is agreeable to work with PT and OT during cotx. Ambulation x 10' and 3' with seated rest between bouts. Needs max encouragement to continue with gait. Mod A x 2 sit <> stands from W/C. Recommend 24 hr care. Physical Therapy Goals 1. Pt to be Min/Mod assist for bed mobility and supine to/from sit transfers 2. Pt to be Min/Mod assist for sit to/from stand transfers with least restrictive device 3. Pt to ambulate with SBA/Min assist and least restrictive device x 30' with improved pain management 4. Pt to jyothi up/down 6 steps with rail, least restrictive device and SBA/Min assist Patient's Goals
--- NOTE | 2018-11-29 12:51 | NUR ---
OCCUPATIONAL THERAPY Dressing Assistance: Dressing Aid Required: Max- Total A LB dressing Bathing Assistance: Bathing Equipment: Max A Home Assessment: Not Completed Feeding Assistance: Set- up Feeding Specialized Equipment: N/A Toilet Use: Max- Total A Verbalizes Needs: Yes Understands Precautions: Yes Cooperative: At times, anxious. Family Teaching: No Occupational Therapy Comment: Pt. to d/c to [facility] for continued rehab.
--- NOTE | 2018-11-29 13:00 | NUR ---
DC MDS completed with pt. C: 09, D: 00, E: no concerns, Q: plans are for pt to DC to a long-term care facility where he can reside, acceptance to [facility] for today, will poultry picker at 1415.
--- NOTE | 2018-11-29 13:02 | OT ECF NOTE ---
Type of Note: Discharge Note (o11/29/18) Primary Medical Diagnosis: Generalized weakness Occupational Therapy Evaluation Date: 11/16/18 SUBJECTIVE: Prior Hospitalization: [facility] 11/13/18-11/16/18. (Due to UTI/Fall at home attributed to possible bradycardic dysrhythmia and AFIB) Prior Level of Function: Modified Independent with ADLs. Assist from spouse for IADLs due to dementia. Ambulating with a cane. Patient was going to outpatient PT at [facility]. Goes into the community 3-4x/week with spouse. Prior Living Status: Single level house Spouse Assist by family Community Services: No known needs Home Accessibility: Stairs with rails All needs on one level Equipment Owned: Cane Medical Complications/Past Medical History: hx CABG, ID, CKD, CAD, Afib, Hypothyroidism Psychosocial Support: Supportive spouse Pain Scale (0-10): Occasional discomfort noted in L) LE where I&O in ER occurred. No numerical rating. OBJECTIVE: Strength: MMT: Right Left Shoulder Flexion WFL WFL Elbow Flexion WFL WFL Wrist Extension WFL WFL Montessori Lead Teacher WFL WFL (5= normal, 4= good, 3= fair, 2= poor, 1= trace) ROM: Both upper extremities, WFL Sensation: No paraesthesia reported Functional Transfer: Assistive Device: Front wheeled walker Transfer Ability: 2-person assist, Min- Mod assistance. Verbal cues for safety and sequencing. ADL: Upper body dressing: Assistive device: Upper body dressing ability: Mod A Lower body dressing: Assistive device: Lower body dressing ability: Max- total A Toileting: Assistive device: Toileting ability: Max- total A Grooming/hygiene: Assistive device: Grooming ability: N/T Bathing: Assistive device: Bathing ability: Max- total A Standardized Assessment: Elaine Index of Activities of Daily Livin/10 upon initial evaluation (11/16/18). 11/19 upon d/c to [facility]. ASSESSMENT: "Gavino" presents to [facility] requiring 2 person assist with RW or 1 person assist with EZ lift for all transfers and 1-2 person assist for ADLs. At [facility], he was ambulating with a cane and primarily independent with ADLs. He will benefit from skilled OT services to improve functional mobility and optimize independence for ADLs prior to discharge home with spouse. Problem List/Current Limitations: Pain Decreased activity tolerance Decreased strength Generalized weakness Poor safety awareness Memory deficits Decreased problem solving Decreased initiation Confusion Short Term Goals: 1) Pt will be Min A UB/LB dressing. 2) Pt will be Min A toilet task. 3) Pt will SBA grooming, seated. 4) Pt will be Min A shower task. 5) Pt Elaine Index of ADLs score will improve by 2 points. Geological Drafter Goals: Return home with HomeHealth services Patient Goals: Pt anxious, desires to return home Rehabilitation Prognosis: Fair Barriers to Discharge: Cognition, Medical comorbidities, PLAN: The patient will d/c to [facility] for continued rehab. Thank you for this referral. If you have any questions, concerns, or comments about this report or plan, please contact me at . Saumya Song, OTR/L Occupational Therapist JENNIFER
== END 2018-11-29 14:25 | DRG 700 ==
LOC: ECF 10:55
PROVIDERS: ADMIT Internal Medicine; ATTEND Internal Medicine
DX: T83.511A Infection and inflammatory reaction due to indwelling urethral catheter, initial encounter (principal); B96.89 Other specified bacterial agents as the cause of diseases classified elsewhere; I48.2 Chronic atrial fibrillation; I25.10 Atherosclerotic heart disease of native coronary artery without angina pectoris; Z79.01 Long term (current) use of anticoagulants; F03.90 Unspecified dementia, unspecified severity, without behavioral disturbance, psychotic disturbance, mood disturbance, and anxiety; N18.9 Chronic kidney disease, unspecified; E03.9 Hypothyroidism, unspecified; R00.1 Bradycardia, unspecified; W18.30XD Fall on same level, unspecified, subsequent encounter; Z95.1 Presence of aortocoronary bypass graft; Z88.0 Allergy status to penicillin; Z86.73 Personal history of transient ischemic attack (TIA), and cerebral infarction without residual deficits; Z87.891 Personal history of nicotine dependence; Z85.828 Personal history of other malignant neoplasm of skin
CPT/HCPCS: 36415; 36416; 71045; 82040; 82247; 82310; 82374; 82435; 82565; 82947; 82948; 84075; 84132; 84155; 84295; 84450; 84460; 84520; 85025; 85610; 97161; 97166; J1335; J7050; Q0163

== ENCOUNTER 2018-12-05 06:41 | Emergency (ER) | payer MEDICARE, OTHER ==
--- NOTE | 2018-12-05 06:53 | ER Report ---
History and Physical Time Seen By MD: 06:51 Hx. of Stated Complaint: PATIENT FELL AT THE [facility] THIS MORNING HPI/ROS CHIEF COMPLAINT: Mechanical fall HISTORY OF PRESENT ILLNESS: Patient is a 88-year-old male comes emergency Department today after a mechanical fall witnessed at the [facility]. Patient states he simply lost his balance no chest pain or shortness of breath was not dizzy at the time fell struck his head he is currently on blood thinners patient states that he was asymptomatic prior to and after the fall no loss of consciousness he Scadden obvious laceration the posterior aspect of the scalp patient is denying any neck pain or tenderness at this time denies chest pain at this time or any additional complaints noted REVIEW OF SYSTEMS: Respiratory: No cough, no dyspnea. Cardiovascular: No chest pain, no palpitations. Gastrointestinal: No vomiting, no abdominal pain. Musculoskeletal: No back pain. Remainder of the 14 system rev: Yes Allergies: Coded Allergies: Penicillins (Verified Allergy, Unknown, 06/26/16) HERNAN Inhibitors (Verified Adverse Reaction, Intermediate, cough, 11/17/18) per report from pt's daughter Home Meds Reported Medications Albuterol Sulfate 90 Mcg/Act (PROAIR HFA 90 MCG/ACT) 8.5 Gm Hfa.aer.ad, 2 PUFF IH Q4-6H PRN for SHORTNESS OF BREATH, INHALER 11/14/18 Furosemide (FUROSEMIDE) 20 Mg Tablet, 1 TAB PO QDAY, TAB 11/14/18 Magnesium Oxide (MAGNESIUM OXIDE) 250 Mg Tablet, 250 MG PO QDAY 07/05/18 Levothyroxine Sodium (LEVOTHYROXINE SODIUM) 50 Mcg Tablet, 50 MCG PO QDAY, TAB 07/05/18 Oxygen (Oxygen) 2 L Inha, 2 L INH DAILY 12/15/12 Multivitamins W-Minerals (Multiple Vitamin) 1 Tab Tablet, 1 TAB PO DAILY 12/15/12 Fish Oil/Dha/Epa (FISH OIL 1,200 MG FISH OIL) 1 Each Capsule, 1 EACH PO DAILY 12/15/12 Acetaminophen (Tylenol) 325 Mg Tab, 650 MG PO Q6H PRN 12/15/12 Warfarin Sod (Coumadin (Or Equiv)) 2 Mg Tab, 2 MG PO QDAY WEDNESDAY, WEDNESDAY, WEDNESDAY, WEDNESDAY. It is very important that you take your coumadin exactly as prescribed, have blood work to monitor your PT/INR values, and follow up with your health care provider as prescribed. Diet and medication can affect the PT/INR level. Keep your diet pretty much the same day to day. Many foods contain Vitamin K which helps blood to clot and can affect the way your coumadin works. You don't need to avoid foods that have Vitamin K, but you do need to eat about the same amount of them every day. Be sure to tell your provider before changing your diet for any reason (weight loss, illness, etc.) Do not start or discontinue any medications, prescribed or over the counter, except on the advise of your provider or pharmacist. Coumadin (Warfarin) increases the risk of bleeding. 10/19/12 Pravastatin Sod (PRAVACHOL (OR EQUIV)) 20 Mg Tab, 20 MG PO HS, #90 06/26/12 Discontinued Reported Medications Lisinopril (LISINOPRIL) 5 Mg Tablet, 5 MG PO QDAY HOLD FOR (S) BP LOWER THAN 120 09/18/13 Carvedilol (CARVEDILOL) 25 Mg Tablet, 12.5 MG PO BID, TAB TAKE ONE half TABLET BY MOUTH TWICE A DAY 09/17/13 Reviewed Nurses Notes: Yes Old Medical Records Reviewed: Yes Hx Smoking: Yes (60 YEARS AGO) Smoking Status: Former Smoker Exposure to Second Hand Smoke?: No Hx Substance Use Disorder: No (Refuses to say) Hx Alcohol Use: Yes Constitutional Vital Sign - Last 24 Hours 12/05/18 06:49 Temp 98.3 Pulse 110 Resp 20 B/P (MAP) 170/120 Pulse Ox 91 O2 Delivery Room Air Physical Exam General Appearance: [The patient is alert, has no immediate need for airway protection and no current signs of toxicity.] [ ] Eyes: Pupils equal and round no injection. Respiratory: Chest is non tender, lungs are clear to auscultation. Cardiac: regular rate and rhythm [ ] Gastrointestinal: Abdomen is soft and non tender, no masses, bowel sounds normal. Musculoskeletal: No obvious deformity neurovascular intact in all 4 extremities C collar no step-offs or bony abnormalities noted range of motion noted Extremities have full range of motion and are non tender. Skin: No rashes or lesions. [ ] DIFFERENTIAL DIAGNOSIS: After history and physical exam differential diagnosis was considered for intracranial cerebral bleed cervical spinal fracture scalp laceration skull fracture Medical Decision Making Data Points Laboratory Hematology Test 12/05/18 07:11 Prothrombin Time 31.2 seconds (12.0-14.4) Prothromb Time International Ratio 2.93 Activated Partial Thromboplast Time 43 seconds (23-35) Chemistry Test 12/05/18 07:11 Prothrombin Time 31.2 seconds (12.0-14.4) Prothromb Time International Ratio 2.93 Activated Partial Thromboplast Time 43 seconds (23-35) Coagulation Test 12/05/18 07:11 Prothrombin Time 31.2 seconds Prothromb Time International Ratio 2.93 Activated Partial Thromboplast Time 43 seconds ED Course/Re-evaluation ED Course ED course 86 mL mechanical fall on Coumadin INR therapeutic at just under 3.0 has a small laceration requisite closer to intermittent baltazar CT of the head and C-spine showed no intracranial bleed mass or lesion no cervical spine fractures patient tolerated the procedure well Procedural note staple placement patient had the wound cleaned copiously irrigated and to intermittent baltazar were placed with good closure patient tolerated well Patient be discharged staple removal and an 8-10 days follow-up with primary care Decision to Disposition Date: December 05, 2018 Decision to Disposition Time: 07:57 Depart Departure Latest Vital Signs Vital Signs Date Time Temp Pulse Resp B/P (MAP) Pulse Ox O2 Delivery O2 Flow Rate FiO2 12/05/18 06:49 98.3 110 20 170/120 91 Room Air Impression: Primary Impression: Laceration Condition: Improved Disposition: HOME OR SELF-CARE Referrals: CAM SEGAL MD 5 Days Patient Instructions: Fall Prevention for Older Adults (ED), Laceration (DC) JOSE DANIEL VALERO MD December 05, 2018 06:53
[2018-12-05 07:26] LABS: INR 2.93
--- NOTE | 2018-12-05 07:32 | RADIOLOGY IMAGING REPORT ---
FACILITY: [facility] - [place] PATIENT NAME: Ovidio Álvarez : 1930 MR: [id number] V: [id number] EXAM DATE: ORDERING PHYSICIAN: JOSE DANIEL VALERO TECHNOLOGIST: Location: [facility] [place] Patient: Ovidio Álvarez : 1930 Visit/Account:[id number] Date of Sevice: 12/05/[address]: Indication: Injury. Technique: Contiguous axial sections were obtained from the base to the vertex without contrast enhan cement. One of the following dose optimization techniques was utilized in the performance of this exam: Autom ated exposure control; adjustment of the mA and/or kV according to the patient's size; or use of an i terative reconstruction technique. Specific details can be referenced in the facility's radiology CT exam operational policy. Comparison: 11/13/2018 Findings: There is no evidence of intra-axial or extra-axial hemorrhage. There is chronic cortical at rophy, a right basal ganglia lacunar infarct, and diffuse periventricular white matter disease, witho ut significant change. No new focal areas of decreased or increased attenuation are identified. There is no evidence of mass, edema, or shift of the midline structures. The size, shape, and configuratio n of the ventricular system are stable. The skeletal structures are intact and unremarkable. There is no evidence of fracture or other acute deformity. The visualized paranasal sinuses and mastoid air c ells are clear. Impression: No acute deformity or significant change. Report Dictated By: Leopoldo Briggs MD at 12/05/2018 7:21 AM Report E-Signed By: Leopoldo Briggs MD at 12/05/2018 7:29 AM WSN:[id number]
--- NOTE | 2018-12-05 07:39 | RADIOLOGY IMAGING REPORT ---
FACILITY: [facility] - [place] PATIENT NAME: Ovidio Álvarez : 1930 MR: [id number] V: [id number] EXAM DATE: ORDERING PHYSICIAN: JOSE DANIEL VALERO TECHNOLOGIST: Location: [facility] [place] Patient: Ovidio Álvarez : 1930 Visit/Account:[id number] Date of Sevice: 12/05/2018 CT of the cervical spine without contrast: Indication: Injury. Technique: Helical CT was performed through the cervical spine without contrast. Axial, coronal, and sagittal reconstructions are reviewed. One of the following dose optimization techniques was utilized in the performance of this exam: Autom ated exposure control; adjustment of the mA and/or kV according to the patient's size; or use of an i terative reconstruction technique. Specific details can be referenced in the facility's radiology CT exam operational policy. Comparison: 11/13/2018 Findings: There is no evidence of fracture, compression, subluxation, or other acute deformity. There is moderate degenerative disc space narrowing and osteoarthritis, without significant change. There is uniform mineralization. The skeletal structures are otherwise unremarkable. No paraspinal soft tis chetna abnormalities are identified. IMPRESSION: No evidence of fracture or acute deformity. Report Dictated By: Leopoldo Briggs MD at 12/05/2018 7:29 AM Report E-Signed By: Leopoldo Briggs MD at 12/05/2018 7:35 AM WSN:[id number]
[2018-12-05 08:00] VITALS: BP 145/97
[2018-12-05] MEDS ORDERED: DIPHTH/TETANUS/ACEL. PERTUSSIS IM ONLY ONE (08:30)
== END 2018-12-05 08:40 | disposition home or self-care (01) ==
LOC: ER 07:12
DX: S01.01XA Laceration without foreign body of scalp, initial encounter (principal); Z79.01 Long term (current) use of anticoagulants
CPT/HCPCS: 70450; 72125; 85610; 85730; 90471; 90715; 99284

== ENCOUNTER → 2018-12-05 | Outpatient (CLI) | payer MEDICARE, OTHER | LOC: AMB 08:38 | PROVIDERS: ATTEND Nurse Practitioner | DX: S09.90XA Unspecified injury of head, initial encounter (principal); R41.0 Disorientation, unspecified | CPT/HCPCS: A0425; A0428 ==

== ENCOUNTER → 2018-12-05 | Outpatient (CLI) | payer MEDICARE, OTHER | LOC: AMB 06:22 | PROVIDERS: ATTEND Nurse Practitioner | DX: S01.01XA Laceration without foreign body of scalp, initial encounter (principal); W01.0XXA Fall on same level from slipping, tripping and stumbling without subsequent striking against object, initial encounter | CPT/HCPCS: A0425; A0429 ==

== ENCOUNTER 2019-01-13 17:42 | Inpatient (IN) | payer MEDICARE, OTHER ==
[~2019-01-13] VITALS: Ht 180.3 cm; Wt 81.3 kg
[2019-01-13] MEDS ORDERED: ASPIRIN 81 MG CHEW PO ONE (17:55)
--- NOTE | 2019-01-13 18:12 | EKG ---
FACILITY: [facility] [place] PATIENT NAME: JOSE M CASTANEDA : [id number] MR: [id number] V: [id number] EXAM DATE: ORDERING PHYSICIAN: ZITA BACON TECHNOLOGIST: Test Reason : A fib, SOB Blood Pressure : / mmHG Vent. Rate : 100 BPM Atrial Rate : 082 BPM P-R Int : 000 ms QRS Dur : 138 ms QT Int : 392 ms P-R-T Axes : 000 -59 114 degrees QTc Int : 505 ms Atrial fibrillation with premature ventricular or aberrantly conducted complexes Left axis deviation Nonspecific intraventricular block Possible previousinferolateral infarct Abnormal ECG Similar to previous Confirmed by OSMAN GONZALEZ ([id number]) on 01/13/2019 8:24:00 PM Referred By: Confirmed By:OSMAN GONZALEZ
[2019-01-13 18:13] LABS: PLATELET COUNT, AUTOMATED 398 K/uL (150-450)
--- NOTE | 2019-01-13 18:41 | RADIOLOGY IMAGING REPORT ---
FACILITY: [facility] PATIENT NAME: Ovidio Álvarez : 1930 MR: [id number] V: [id number] EXAM DATE: ORDERING PHYSICIAN: ZITA BACON TECHNOLOGIST: Location: [facility] - [place] Patient: Ovidio Álvarez : 1930 Visit/Account:[id number] Date of Sevice: 01/13/2019 Examination: CHEST SINGLE AP Comparison: 11/18/2018 and earlier. History: Chest Pain Findings: Cardiac and hilar contour is mildly enlarged but unchanged. Aortic atherosclerosis. Chronic mild vascular congestion and diffuse interstitial prominence. No new or enlarging consolidati on or nodule. No definite evidence of acute peribronchial inflammation or pulmonary edema. No pneumot horax. A small left pleural effusion could be present but does appear to be decreased since 11/18/2018 . Sternotomy wires are midline and intact. IMPRESSION: 1. Possible small left pleural effusion, decreased since 11/18/2018. 2. Chronic changes with no other definite findings of acute cardiopulmonary disease. Report Dictated By: Abdiaziz Melara MD at 01/13/2019 6:35 PM Report E-Signed By: Abdiaziz Melara MD at 01/13/2019 6:37 PM WSN:[id number]
[2019-01-13] MEDS ORDERED: FUROSEMIDE 40 MG/4 ML VIAL IVP ONE (19:15)
--- NOTE | 2019-01-13 20:10 | RADIOLOGY IMAGING REPORT ---
FACILITY: [facility] - [place] PATIENT NAME: Ovidio Álvarez : 1930 MR: [id number] V: [id number] EXAM DATE: ORDERING PHYSICIAN: ZITA BACON TECHNOLOGIST: Location: [facility] Patient: Ovidio Álvarez : 1930 Visit/Account:[id number] Date of Sevice: 01/13/2019 ADDENDUM #1 ADDENDUM: In the body of the report, the sentence "The gallbladder is unremarkable." should be removed and repl aced with the following: Several small echogenic shadowing foci and a few small sludge balls are present within the gallbladde r. The gallbladder wall is diffusely mildly thickened measuring 3 mm in AP diameter. No abnormal natan cholecystic fluid collections. Report Dictated By: Valerio Zaragoza MD at 01/13/2019 8:08 PM Report E-Signed By: Valerio Zaragoza MD at 01/13/2019 8:10 PM ORIGINAL REPORT Right upper abdomen ultrasound. HISTORY: Elevated liver enzymes. COMPARISON: None. The liver measures 13.9 cm in sagittal length. The liver is free of focal defects. The surface of the liver is smooth. The portal vein is patent. No intra or extrahepatic biliary dilatation. The gallbla dder is unremarkable. The sonographic Abdul's sign is negative. The pancreas is unremarkable. The ri ght kidney is normal in size. No hydronephrosis. No ascites. Portions of the abdominal aorta and infe rior vena cava are obscured. The spleen and left kidney were not included. The common bile duct measu res 4 mm in greatest AP diameter. The pancreatic tail is partially obscured by bowel gas. IMPRESSION: Cholelithiasis. Mild gallbladder wall thickening suggesting chronic or acute inflammatory changes. Otherwise negative. Results were discussed with ZITA BACON at 01/13/2019 8:04 PM. Report Dictated By: Valerio Zaragoza MD at 01/13/2019 7:59 PM Report E-Signed By: Valerio Zaragoza MD at 01/13/2019 8:05 PM WSN:[id number]
--- NOTE | 2019-01-13 20:33 | ER Report ---
History and Physical Time Seen By MD: 17:45 Hx. of Stated Complaint: PATIENT FROM [facility]. NURSES THERE REPORT HE HAS A HIGH HEART RATE AND TRHOUBLE BREATHING. PATIENT HAS NO COMPLAINTS AT THIS TIME. HPI/ROS CHIEF COMPLAINT: Shortness of breath, tachycardia HISTORY OF PRESENT ILLNESS: Patient is a 88-year-old male who presents to ED via EMS from [facility]. He had been complaining of some shortness of breath and they noted that he was tachycardic. Patient does have a history of atrial fibrillation and a 4 vessel CABG. He also has a history of heart failure and is on Lasix for this. Patient denies any chest pain. He has not noted any abdominal pain, nausea, vomiting, diarrhea. He denies any fever. He does have dementia and his daughter is his POA. REVIEW OF SYSTEMS: Constitutional: No fever, no chills. Eyes: No discharge. ENT: No sore throat. Cardiovascular: See history of present illness. No palpitations. Respiratory: History of present illness. Mild cough. Gastrointestinal: No abdominal pain, no vomiting. Genitourinary: No hematuria. Musculoskeletal: No back pain. Skin: No rashes. Neurological: No headache. Allergies: Coded Allergies: Penicillins (Verified Allergy, Unknown, 06/26/16) HERNAN Inhibitors (Verified Adverse Reaction, Intermediate, cough, 11/17/18) per report from pt's daughter Home Meds Reported Medications Albuterol Sulfate 90 Mcg/Act (PROAIR HFA 90 MCG/ACT) 8.5 Gm Hfa.aer.ad, 2 PUFF IH Q4-6H PRN for SHORTNESS OF BREATH, INHALER 11/14/18 Furosemide (FUROSEMIDE) 20 Mg Tablet, 1 TAB PO QDAY, TAB 11/14/18 Magnesium Oxide (MAGNESIUM OXIDE) 250 Mg Tablet, 250 MG PO QDAY 07/05/18 Levothyroxine Sodium (LEVOTHYROXINE SODIUM) 50 Mcg Tablet, 50 MCG PO QDAY, TAB 07/05/18 Oxygen (Oxygen) 2 L Inha, 2 L INH DAILY 12/15/12 Multivitamins W-Minerals (Multiple Vitamin) 1 Tab Tablet, 1 TAB PO DAILY 12/15/12 Fish Oil/Dha/Epa (FISH OIL 1,200 MG FISH OIL) 1 Each Capsule, 1 EACH PO DAILY 12/15/12 Acetaminophen (Tylenol) 325 Mg Tab, 650 MG PO Q6H PRN 12/15/12 Warfarin Sod (Coumadin (Or Equiv)) 2 Mg Tab, 2 MG PO QDAY WEDNESDAY, WEDNESDAY, WEDNESDAY, WEDNESDAY. It is very important that you take your coumadin exactly as prescribed, have blood work to monitor your PT/INR values, and follow up with your health care provider as prescribed. Diet and medication can affect the PT/INR level. Keep your diet pretty much the same day to day. Many foods contain Vitamin K which helps blood to clot and can affect the way your coumadin works. You don't need to avoid foods that have Vitamin K, but you do need to eat about the same amount of them every day. Be sure to tell your provider before changing your diet for any reason (weight loss, illness, etc.) Do not start or discontinue any medications, prescribed or over the counter, except on the advise of your provider or pharmacist. Coumadin (Warfarin) increases the risk of bleeding. 10/19/12 Pravastatin Sod (PRAVACHOL (OR EQUIV)) 20 Mg Tab, 20 MG PO HS, #90 06/26/12 Reviewed Nurses Notes: Yes Old Medical Records Reviewed: Yes Hx Smoking: Yes (60 YEARS AGO) Smoking Status: Former Smoker Exposure to Second Hand Smoke?: No Hx Substance Use Disorder: No (Refuses to say) Hx Alcohol Use: Yes Constitutional Vital Sign - Last 24 Hours 01/13/19 01/13/19 01/13/19 01/13/19 17:42 17:43 17:44 18:00 Temp 97.2 Pulse ??? 94 Resp 18 B/P (MAP) 139/116 (124) 139/116 145/109 (121) Pulse Ox 92 O2 Delivery Nasal Cannula 01/13/19 01/13/19 01/13/19 01/13/19 18:11 18:12 18:30 18:42 Pulse 118 112 B/P (MAP) 147/131 (136) Pulse Ox 89 97 O2 Flow Rate 3.0 01/13/19 01/13/19 01/13/19 19:00 19:12 19:30 Pulse 112 B/P (MAP) 161/141 (148) 155/138 (144) Pulse Ox 94 Physical Exam General Appearance: The patient is alert, has no immediate need for airway protection and no signs of toxicity. Patient appears to be no acute distress. Eyes: Pupils equal and round no pallor or injection. ENT, Mouth: Mucous membranes are moist. Respiratory: There are no retractions, lungs are clear to auscultation. Cardiovascular: Irregularly irregular. Gastrointestinal: Abdomen is soft and non tender, no masses, bowel sounds normal. Skin: Warm and dry, no rashes. Musculoskeletal: Neck is supple non tender. There is 2+ bilateral lower extremity edema noted. DIFFERENTIAL DIAGNOSIS: After history and physical exam differential diagnosis was considered for chest pain including but not limited to myocardial ischemia, pericarditis pulmonary embolus, chest wall pain, pleural inflammation and pulmonary infectious causes. Medical Decision Making Data Points Result Diagram: 01/13/19 1803 01/13/191802 Laboratory Hematology Test 01/13/19 18:03 Red Blood Count 4.17 M/uL (4.00-5.60) Mean Corpuscular Volume 94.1 fL (80.0-96.0) Mean Corpuscular Hemoglobin 31.3 pg (26.0-33.0) Mean Corpuscular Hemoglobin Concent 33.3 g/dL (32.0-36.0) Red Cell Distribution Width 17.4 % (11.5-14.5) Mean Platelet Volume 7.2 fL (7.2-11.1) Neutrophils (%) (Auto) 66.9 % (39.4-72.5) Lymphocytes (%) (Auto) 18.8 % (17.6-49.6) Monocytes (%) (Auto) 12.9 % (4.1-12.4) Eosinophils (%) (Auto) 0.5 % (0.4-6.7) Basophils (%) (Auto) 0.9 % (0.3-1.4) Nucleated RBC Relative Count (auto) 0.1 /100WBC Neutrophils # (Auto) 5.9 K/uL (2.0-7.4) Lymphocytes # (Auto) 1.6 K/uL (1.3-3.6) Monocytes # (Auto) 1.1 K/uL (0.3-1.0) Eosinophils # (Auto) 0.0 K/uL (0.0-0.5) Basophils # (Auto) 0.1 K/uL (0.0-0.1) Nucleated RBC Absolute Count (auto) 0.01 K/uL Sodium Level 136 mmol/L (137-145) Potassium Level 4.0 mmol/L (3.5-5.0) Chloride Level 98 mmol/L (98-107) Carbon Dioxide Level 24 mmol/L (22-30) Blood Urea Nitrogen 29 mg/dl (9-21) Creatinine 2.10 mg/dl (0.66-1.25) Glomerular Filtration Rate Calc 30.1 Random Glucose 125 mg/dl (75-110) Calcium Level 9.1 mg/dl (8.4-10.2) Total Bilirubin 1.2 mg/dl (0.2-1.3) Aspartate Amino Transf (AST/SGOT) 455 U/L (0-35) Alanine Aminotransferase (ALT/SGPT) 257 U/L (0-56) Alkaline Phosphatase 101 U/L (0-126) Troponin I 0.060 ng/ml B-Type Natriuretic Peptide 1010 pg/ml (0-100) Total Protein 7.7 g/dl (6.3-8.2) Albumin 3.9 g/dl (3.5-5.0) Lipase 176 U/L (23-300) Chemistry Test 01/13/19 18:03 White Blood Count 8.8 k/uL (4.5-11.0) Red Blood Count 4.17 M/uL (4.00-5.60) Hemoglobin 13.1 g/dL (14.0-18.0) Hematocrit 39.3 % (42.0-52.0) Mean Corpuscular Volume 94.1 fL (80.0-96.0) Mean Corpuscular Hemoglobin 31.3 pg (26.0-33.0) Mean Corpuscular Hemoglobin Concent 33.3 g/dL (32.0-36.0) Red Cell Distribution Width 17.4 % (11.5-14.5) Platelet Count 398 K/uL (150-450) Mean Platelet Volume 7.2 fL (7.2-11.1) Neutrophils (%) (Auto) 66.9 % (39.4-72.5) Lymphocytes (%) (Auto) 18.8 % (17.6-49.6) Monocytes (%) (Auto) 12.9 % (4.1-12.4) Eosinophils (%) (Auto) 0.5 % (0.4-6.7) Basophils (%) (Auto) 0.9 % (0.3-1.4) Nucleated RBC Relative Count (auto) 0.1 /100WBC Neutrophils # (Auto) 5.9 K/uL (2.0-7.4) Lymphocytes # (Auto) 1.6 K/uL (1.3-3.6) Monocytes # (Auto) 1.1 K/uL (0.3-1.0) Eosinophils # (Auto) 0.0 K/uL (0.0-0.5) Basophils # (Auto) 0.1 K/uL (0.0-0.1) Nucleated RBC Absolute Count (auto) 0.01 K/uL Glomerular Filtration Rate Calc 30.1 Calcium Level 9.1 mg/dl (8.4-10.2) Total Bilirubin 1.2 mg/dl (0.2-1.3) Aspartate Amino Transf (AST/SGOT) 455 U/L (0-35) Alanine Aminotransferase (ALT/SGPT) 257 U/L (0-56) Alkaline Phosphatase 101 U/L (0-126) Troponin I 0.060 ng/ml B-Type Natriuretic Peptide 1010 pg/ml (0-100) Total Protein 7.7 g/dl (6.3-8.2) Albumin 3.9 g/dl (3.5-5.0) Lipase 176 U/L (23-300) EKG/Imaging EKG Interpretation 12 lead EKG: Rhythm: Atrial fibrillation with PVCs ST segments: No acute ST changes noted. Imaging CXR: IMPRESSION: 1. Possible small left pleural effusion, decreased since 11/18/2018. 2. Chronic changes with no other definite findings of acute cardiopulmonary disease. Report Dictated By: Abdiaziz Melara MD at 01/13/2019 6:35 PM Report E-Signed By: Abdiaziz Melara MD at 01/13/2019 6:37 PM Gallbladder US: IMPRESSION: Cholelithiasis. Mild gallbladder wall thickening suggesting chronic or acute inflammatory changes. Otherwise negative. Results were discussed with ZITA BACON at 01/13/2019 8:04 PM. Report Dictated By: Valerio Zaragoza MD at 01/13/2019 7:59 PM Report E-Signed By: Valerio Zaragoza MD at 01/13/2019 8:05 PM ED Course/Re-evaluation ED Course Will obtain labs, EKG and imaging. Radiology did call to discuss ultrasound findings and believes that there are chronic changes of the gallbladder indicating possible chronic cholecystitis. Th e liver enzymes may be elevated secondary to hepatic congestion from the acute heart failure exacerbation. Patient does have an elevated troponin and the equivocal range likely secondary to demand ischemia. He also had does have increased oxygen needs from his baseline of 2 L to 4 L now. 01/13/2019 8:28:40 pm - discussed all images and labs with patient and POA. She would like patient admitted at this time. Discussed patient Dr. Marlin Briseno, hospitalist, who will admit patient under his care. Patient was given 40 mg furosemide IV in ED. Decision to Disposition Date: Jan 13, 2019 Decision to Disposition Time: 20:29 Depart Departure Latest Vital Signs Vital Signs Date Time Temp Pulse Resp B/P (MAP) Pulse Ox O2 Delivery O2 Flow Rate FiO2 01/13/19 19:30 155/138 (144) 01/13/19 19:12 112 94 01/13/19 18:11 3.0 01/13/19 17:44 97.2 18 Nasal Cannula Impression: Primary Impression: Acute exacerbation of CHF (congestive heart failure) Additional Impressions: Elevated troponin Elevated liver enzymes Chronic kidney disease Hypoxia Condition: Improved Disposition: Admitted from ER Referrals: MANUEL BURCH DO (PCP) Consult Note: Dr. Briseon, Hospitalist Problem Qualifiers Primary Impression: Acute exacerbation of CHF (congestive heart failure) Heart failure type: unspecified Qualified Codes: I50.9 - Heart failure, unspecified Additional Impressions: Chronic kidney disease Chronic kidney disease stage: stage 3 (moderate) Qualified Codes: N18.3 - Chronic kidney disease, stage 3 (moderate) ZITA BACON PA-C Jan 13, 2019 20:33
[2019-01-13 21:15] VITALS: BP 140/111
[2019-01-13] MEDS ORDERED: NS(*) 0.9% 1000 ML BAG 1,000 ML IV PRN (21:22)
[2019-01-13] MEDS ORDERED: INFLUENZA VIRUS VAC 0.5ML SYR IM ONLY ONE (21:25)
--- NOTE | 2019-01-13 21:47 | History & Physical ---
History of Present Illness Chief Complaint Short of breath History of Present Illness 88yo male with PMHx significant for a-fib, previous CVA, dementia, CHF with EF 35%, hypothyroidism, chronic indwelling Craig cath. He currently resides at [facility]. Nursing reports he appeared to be short of breath and also noted elevated heart rate. At present, he denies any sensation of dyspnea or other complaints and states "I feel pretty good". His was with him at the [facility] and did agree with the nurse's evaluation. She reports he has had increased LE swelling and appeared to be "breathing hard" and "looked weak". She also reported he had diminished appetite. They had not appreciated any fevers or noted any chills. He was evaluated in the ER and recommended for admission. History Problems: (1) Urinary retention Status: Chronic Comment: Indwelling Craig catheter (2) Hyperlipidemia Status: Chronic (3) Atrial fibrillation Status: Chronic (4) Urinary tract infection Status: Acute (5) CAD (coronary artery disease) Status: Chronic (6) Hypothyroidism Status: Chronic (7) Cognitive dysfunction Status: Chronic (8) Chronic kidney disease Status: Chronic (9) S/P CABG (coronary artery bypass graft) Status: Chronic Home Meds Reported Medications Albuterol Sulfate 90 Mcg/Act (PROAIR HFA 90 MCG/ACT) 8.5 Gm Hfa.aer.ad, 2 PUFF IH Q4-6H PRN for SHORTNESS OF BREATH, INHALER 11/14/18 Furosemide (FUROSEMIDE) 20 Mg Tablet, 1 TAB PO QDAY, TAB 11/14/18 Magnesium Oxide (MAGNESIUM OXIDE) 250 Mg Tablet, 250 MG PO QDAY 07/05/18 Levothyroxine Sodium (LEVOTHYROXINE SODIUM) 50 Mcg Tablet, 50 MCG PO QDAY, TAB 07/05/18 Oxygen (Oxygen) 2 L Inha, 2 L INH DAILY 12/15/12 Multivitamins W-Minerals (Multiple Vitamin) 1 Tab Tablet, 1 TAB PO DAILY 12/15/12 Fish Oil/Dha/Epa (FISH OIL 1,200 MG FISH OIL) 1 Each Capsule, 1 EACH PO DAILY 12/15/12 Acetaminophen (Tylenol) 325 Mg Tab, 650 MG PO Q6H PRN 12/15/12 Warfarin Sod (Coumadin (Or Equiv)) 2 Mg Tab, 2 MG PO QDAY WEDNESDAY, WEDNESDAY, WEDNESDAY, WEDNESDAY. It is very important that you take your coumadin exactly as prescribed, have blood work to monitor your PT/INR values, and follow up with your health care provider as prescribed. Diet and medication can affect the PT/INR level. Keep your diet pretty much the same day to day. Many foods contain Vitamin K which helps blood to clot and can affect the way your coumadin works. You don't need to avoid foods that have Vitamin K, but you do need to eat about the same amount of them every day. Be sure to tell your provider before changing your diet for any reason (weight loss, illness, etc.) Do not start or discontinue any medications, prescribed or over the counter, except on the advise of your provider or pharmacist. Coumadin (Warfarin) increases the risk of bleeding. 10/19/12 Pravastatin Sod (PRAVACHOL (OR EQUIV)) 20 Mg Tab, 20 MG PO HS, #90 06/26/12 Allergies: Coded Allergies: Penicillins (Verified Allergy, Unknown, 06/26/16) HERNAN Inhibitors (Verified Adverse Reaction, Intermediate, cough, 11/17/18) per report from pt's daughter Other Social/Family Hx He currently resides at [facility] Hx Smoking: Yes (60 YEARS AGO) Smoking Status: Former Smoker Exposure to Second Hand Smoke?: No Caffeine Intake: Tea Caffeine/Cups Per Day: 2 CUPS PER DAY Hx Alcohol Use: Yes Hx Substance Use Disorder: No Social Drug Use: Never Review of Systems Constitutional: No Fever, No Chills Neurological: Confusion, Weakness Eyes: No Vision Change, No Loss of Vision Cardiovascular: No Chest Pain Respiratory: Shortness of Breath Gastrointestinal: Nausea; No Diarrhea, No Hematemesis, No Hematochezia, No M getachew, No Abdominal Pain Genitourinary: Other (indwelling Craig catheter); No Dysuria Exam Vital Signs Vital Signs Date Time Temp Pulse Resp B/P (MAP) Pulse Ox O2 Delivery O2 Flow Rate FiO2 01/13/19 21:15 97.8 129 24 140/111 (121) 90 Nasal Cannula 4.0 General Appearance: Alert, Awake Neuro: Other (No focal motor deficits/he moves all four extremities normally) ENT: Oropharynx Clear Neck: No Masses Cardiovascular: Other (Irregular with soft systolic and diastolic murmurs) Respiratory: Other (fairly clear with decreased breath sounds at bases) Chest: No Tenderness GI: Abd Soft and Non-Tender (BS present) : No CVA Tenderness, Other (indwelling Craig cath) Extremities: Warm, Perfused, Edema (2-3+ both LE to mid-thighs) Integumentary: Generalized Fragile Skin Psych: Other (Oriented to person, place, and partially to time) Medical Decision Making Data Points Result Diagram: 01/13/19 1803 01/13/19 180 Item Value Date Time Lipase 176 U/L 01/13/19 1803 B-Type Natriuretic Peptide 1010 pg/ml H 01/13/19 1803 Albumin 3.9 g/dl 01/13/19 1803 Total Protein 7.7 g/dl 01/13/19 1803 Troponin I 0.060 ng/ml 01/13/19 1803 Alkaline Phosphatase 101 U/L 01/13/19 1803 Alanine Aminotransferase (ALT/SGPT) 257 U/L H 01/13/19 1803 Aspartate Amino Transf (AST/SGOT) 455 U/L H 01/13/19 1803 Total Bilirubin 1.2 mg/dl 01/13/19 1803 Calcium Level 9.1 mg/dl 01/13/19 1803 Prothrombin Time 31.2 seconds H 12/05/18 0711 Prothromb Time International Ratio 2.93 12/05/18 0711 Activated Partial Thromboplast Time 43 seconds H 12/05/18 0711 EKG / Imaging EKG Interpretation PATIENT NAME: OVIDIO IVORY: [id number] MR: [id number] V: [id number] EXAM DATE: ORDERING PHYSICIAN: ZITA BACON TECHNOLOGIST: Test Reason : A fib, SOB Blood Pressure : / mmHG Vent. Rate : 100 BPM Atrial Rate : 082 BPM P-R Int : 000 ms QRS Dur : 138 ms QT Int : 392 ms P-R-T Axes : 000 -59 114 degrees QTc Int : 505 ms Atrial fibrillation with premature ventricular or aberrantly conducted complexes Left axis deviation Nonspecific intraventricular block Possible previousinferolateral infarct Abnormal ECG Similar to previous Confirmed by OSMAN GONZALEZ ([id number]) on 01/13/2019 8:24:00 PM Referred By: Confirmed By:OSMAN GONZALEZ Imaging PATIENT NAME: Ovidio Álvarez DOB: 1930 MR: [id number] V: [id number] EXAM DATE: [id number] ORDERING PHYSICIAN: ZITA BACON TECHNOLOGIST: Location: [facility] [place] Patient: Ovidio Álvarez : 1930 Visit/Account:[id number] Date of Sevice: 01/13/2019 Examination: CHEST SINGLE AP Comparison: 11/18/2018 and earlier. History: Chest Pain Findings: Cardiac and hilar contour is mildly enlarged but unchanged. Aortic atherosclerosis. Chronic mild vascular congestion and diffuse interstitial prominence. No new or enlarging consolidation or nodule. No definite evidence of acute peribronchial inflammation or pulmonary edema. No pneumothorax. A small left pleural effusion could be present but does appear to be decreased since 11/18/2018. Sternotomy wires are midline and intact. IMPRESSION: 1. Possible small left pleural effusion, decreased since 11/18/2018. 2. Chronic changes with no other definite findings of acute cardiopulmonary disease. Report Dictated By: Abdiaziz Melara MD at 01/13/2019 6:35 PM Report E-Signed By: Abdiaziz Melara MD at 01/13/2019 6:37 PM [id number] PATIENT NAME: Ovidio Álvarez : 1930 MR: [id number] V: [id number] EXAM DATE: ORDERING PHYSICIAN: ZITA BACON TECHNOLOGIST: Location: [facility] [place] Patient: Ovidio Álvarez : 1930 Visit/Account:[id number] Date of Sevice: 01/13/2019 ADDENDUM #1 ADDENDUM: In the body of the report, the sentence "The gallbladder is unremarkable." should be removed and replaced with the following: Several small echogenic shadowing foci and a few small sludge balls are present within the gallbladder. The gallbladder wall is diffusely mildly thickened measuring 3 mm in AP diameter. No abnormal pericholecystic fluid collections. Report Dictated By: Valerio Zaragoza MD at 01/13/2019 8:08 PM Report E-Signed By: Valerio Zaragoza MD at 01/13/2019 8:10 PM ORIGINAL REPORT Right upper abdomen ultrasound. HISTORY: Elevated liver enzymes. COMPARISON: None. The liver measures 13.9 cm in sagittal length. The liver is free of focal defects. The surface of the liver is smooth. The portal vein is patent. No intra or extrahepatic biliary dilatation. The gallbladder is unremarkable. The sonographic Abdul's sign is negative. The pancreas is unremarkable. The right kidney is normal in size. No hydronephrosis. No ascites. Portions of the abdominal aorta and inferior vena cava are obscured. The spleen and left kidney were not included. The common bile duct measures 4 mm in greatest AP diameter. The pancreatic tail is partially obscured by bowel gas. IMPRESSION: Cholelithiasis. Mild gallbladder wall thickening suggesting chronic or acute inflammatory changes. Otherwise negative. Results were discussed with ZITA BACON at 01/13/2019 8:04 PM. Report Dictated By: Valerio Zaragoza MD at 01/13/2019 7:59 PM Report E-Signed By: Valerio Zaragoza MD at 01/13/2019 8:05 PM [id number] Assessment and Plan Problems: (1) Dyspnea Status: Acute Assessment & Plan: This could certainly be multifactorial in origin. His oxygen requirement is relatively unchanged and CXR does not show overt pulmonary edema. He does have peripheral edema, but appears he may be somewhat volume depleted on labs. He has been on daily Lasix at the assisted. His troponin is slightly elevated, but not into positive range. This may be secondary to his renal insufficiency. He may have progressive heart failure. He may also have recurrent UTI related to his chronic indwelling Craig cath. Will check UA with culture. Start empiric IV antibiotics with ertapenem. Will check echocardiogram. Check serial troponins and TSH as well. (2) Atrial fibrillation Status: Chronic Assessment & Plan: He has not been on any rate control medications since he had significant bradycardia a couple of months ago. He is still on warfarin for CVA prophylaxis. Will need to check protime/INR. (3) Hypothyroidism Status: Chronic Assessment & Plan: Will continue replacement. Check TSH. (4) Cognitive dysfunction Status: Chronic Assessment & Plan: He appears to be fairly stable with respect to this. (5) Chronic kidney disease Status: Chronic Assessment & Plan: His baseline creatinine is is 1-5-1.8 range. His creatinine is modestly elevated to 2.1 at time of admission. Will give gentle IV fluids. Watch labs. Venous Thromboembolism Antithrombotics Is Pt On Any Antithrombotics?: Yes Exam Sepsis Risk: No Definite Risk Problem Qualifiers (1) Chronic kidney disease: Chronic kidney disease stage: stage 3 (moderate) Qualified Codes: N18.3 - Chronic kidney disease, stage 3 (moderate) OSMAN GONZALEZ MD Jan 13, 2019 21:47
[2019-01-13 22:34] LABS: INR 2.57
[2019-01-13] MEDS: NS 0.9% IVPB SCH (22:48)
[2019-01-13] MEDS: ERTAPENEM IVPB SCH (22:48)
--- NOTE | 2019-01-14 01:16 | NUR ---
Pt. had a 10 minute episode of wanting to get out of bed to use the toilet to urinate. Pt. was reoriented to catheter x3 but couldn't be persuaded to get back into lying down in bed so I sat in the room with him at the bedside until he wanted to lie down again. Pt.'s only desire to get up stemmed from wanting to pee. Craig was functioning properly. Pt. in bed, resting with eyes closed, and bed alarm activated.
[2019-01-14 03:50] VITALS: BP 119/70
[2019-01-14] MEDS: LEVOTHYROXINE SOD 0.05 MG TAB PO SCH (05:50)
[2019-01-14 07:04] VITALS: BP 123/47
[2019-01-14] MEDS ORDERED: FUROSEMIDE 40 MG/4 ML VIAL IVP SCH (09:00)
[2019-01-14] MEDS: MAGNESIUM OXIDE 400 MG TAB PO SCH (09:23)
[2019-01-14 09:53] VITALS: Ht 180.3 cm; Wt 81.3 kg
[2019-01-14] MEDS: WARFARIN SOD 2 MG TAB PO SCH (13:46)
[2019-01-14 15:16] VITALS: BP 140/112
[2019-01-14] MEDS ORDERED: FUROSEMIDE 40 MG/4 ML VIAL IVP ONE (15:40)
--- NOTE | 2019-01-14 15:58 | Hospitalist Progress Note ---
Subjective Progress Notes Subjective 88M admitted for CHF and UTI. PRABHU overnight, feeling near baseline. Await Cx. Patient Complains of: Gastrointestinal: No Nausea, No Vomiting Physical Exam Vital Signs Date Time Temp Pulse Resp B/P (MAP) Pulse Ox O2 Delivery O2 Flow Rate FiO2 01/14/19 15:16 97.8 103 28 140/112 (121) 84 Nasal Cannula 2.0 Intake and Output 01/14/19 07:01 Intake Total 400 ml Output Total 925 ml Balance -525 ml Intake Oral 400 ml Output Urine Total 925 ml General Appearance: Alert, Awake, No Acute Distress, Afebrile Neuro: No Gross deficits Cardiovascular: Other (irregularly irregular, + JVD) Respiratory: No Respiratory Distress Result Diagram: 01/13/19 1803 01/14/19 0606 Assessment and Plan Problems: (1) Dyspnea Status: Acute Assessment & Plan: He does have worsening of his heart failure to 25-30% EF from 35% and worsening pulmonary hypertension. Suspect pulmonary hypertension is the primary driving factor in dyspnea. (2) Atrial fibrillation Status: Chronic Assessment & Plan: He has not been on any rate control medications since he had significant bradycardia a couple of months ago. He is still on warfarin for CVA prophylaxis. INR therapeutic. (3) Hypothyroidism Status: Chronic Assessment & Plan: Will continue replacement. Check TSH. (4) Cognitive dysfunction Status: Chronic Assessment & Plan: He appears to be fairly stable with respect to this. (5) Chronic kidney disease Status: Chronic Assessment & Plan: His baseline creatinine is is 1-5-1.8 range. His creatinine is modestly elevated to 2.1 at time of admission. improved with diuresis. Exam Sepsis Risk: No Definite Risk Problem Qualifiers (1) Chronic kidney disease: Chronic kidney disease stage: stage 3 (moderate) Qualified Codes: N18.3 - Chronic kidney disease, stage 3 (moderate) PARKER GALINDO DO Jan 14, 2019 15:58
[2019-01-14 18:57] VITALS: BP 135/93
[2019-01-14] MEDS: ACETAMINOPHEN 325 MG TAB PO PRN (22:37)
[2019-01-14] MEDS: NS 0.9% IVPB SCH (22:37)
[2019-01-14] MEDS: ERTAPENEM IVPB SCH (22:37)
[2019-01-15 03:22] VITALS: BP 148/117
[2019-01-15] MEDS: LEVOTHYROXINE SOD 0.05 MG TAB PO SCH (05:48)
[2019-01-15 06:29] LABS: PLATELET COUNT, AUTOMATED 322 K/uL (150-450)
[2019-01-15 06:38] LABS: INR 2.87
[2019-01-15 07:04] VITALS: BP 124/104
--- NOTE | 2019-01-15 08:50 | Hospitalist Progress Note ---
Subjective Progress Notes Subjective The patient states he feels better. He denies shortness of breath. Nursing reports he gets extremely winded with any exertion, even pivoting into the bed from the chair. Physical Exam Vital Signs Date Time Temp Pulse Resp B/P (MAP) Pulse Ox O2 Delivery O2 Flow Rate FiO2 01/15/19 07:04 98.0 85 18 124/104 (111) 95 Nasal Cannula 2.0 Intake and Output 01/15/19 07:01 Intake Total 1484 ml Output Total 1775 ml Balance -291 ml Intake Oral 990 ml IV Total 494 ml Output Urine Total 1775 ml # Bowel Movements 1 General Appearance: Alert, Awake, No Acute Distress, Afebrile Neuro: Other (Emotionally labile. Confused at times.) Eyes: PERRLA Cardiovascular: Other (Irregularly irregular. LE edema is present and equal bilaterally.) Respiratory: No Respiratory Distress, Clear to Auscultation GI: Soft and Non-Tender Extremities: Warm, Perfused Integumentary: Generalized Fragile Skin Psych: Other (Emotional lability.) Result Diagram: 01/15/19 0550 01/15/19 0550 Assessment and Plan Problems: (1) Dyspnea Status: Acute Assessment & Plan: He does have worsening of his heart failure to 25-30% EF from 35% and worsening pulmonary hypertension. Suspect pulmonary hypertension is the primary driving factor in dyspnea. CXR shows no pulmonary edema and a small pleural effusion has actually improved. The patient has taken off his O2 here. Suspect he takes it off at [facility] at times. This would account for the worsening of his pulmonary HTN. His LFTs are elevated likely due to passive congestion of the liver. Will repeat CMP in the am to see if this has improved. He has received 2 doses of IV Lasix. Will place back on his oral Lasix today and monitor. (2) Atrial fibrillation Status: Chronic Assessment & Plan: He has not been on any rate control medications since he had significant bradycardia a couple of months ago. He is still on warfarin for CVA prophylaxis. INR therapeutic. (3) Hypothyroidism Status: Chronic Assessment & Plan: Will continue replacement. Check TSH. (4) Cognitive dysfunction Status: Chronic Assessment & Plan: He appears to be fairly stable with respect to this. (5) Chronic kidney disease Status: Chronic Assessment & Plan: His baseline creatinine is is 1-4-1.8 range. His creatinine was modestly elevated to 2.1 at time of admission. He has improved with diuresis and is now at 1.8. He did get down to 1.4 in October of this year. Continue to monitor. Time Spent on Plan of Care: < 30 min Exam Sepsis Risk: No Definite Risk Problem Qualifiers (1) Chronic kidney disease: Chronic kidney disease stage: stage 3 (moderate) Qualified Codes: N18.3 - Chronic kidney disease, stage 3 (moderate) HILLARY GONZALEZ MD Jan 15, 2019 08:50
[2019-01-15] MEDS: MAGNESIUM OXIDE 400 MG TAB PO SCH (09:49)
[2019-01-15] MEDS: FUROSEMIDE 20 MG TAB PO SCH (09:50)
[2019-01-15 11:04] VITALS: BP 142/118
--- NOTE | 2019-01-15 11:04 | Medical Nutrition Therapy ---
Nutrition Anthropometrics Height (Inches): 71.00 Height (Calculated Centimeters: [phone] Weight (Pounds): 179 Weight (Calculated Kilograms): 81.335 Rupert Nutrition Score: Adequate Rupert Nutrition Risk Score: 16 Dietary Referral Nutrition Risk Factors: Recent Nutrition Impact Nutrition Risk Comment: Physical Findings Physical Appearance: Overweight BMI 25-29 Skin Appearance Skin Appearance: Edema Edema Location Modifier: Both Edema Location: Lower Extremity Type of Edema: Degree of Edema: 2+ Gastrointestinal Symptoms GI Symtoms: Tube Present: Bowel Sounds: Recent Bowel Pattern: Stool Characteristics: Nutritional Diagnosis Nutritional Risk Acuity 2: CHF w/Complication, Chronic Renal Failure Nutritional Risk Acuity 3: Fair Appetite, Alzheimer's Nutritional Risk Acuity 4: Good Appetite Past Medical History: CKD, A-fib, hypothyroid, CAD, cognative impairment, urinary retention, hyperlipidema, UTI, CABG Nutritional Acuity: 2-Moderate Nutrition Diagnosis: Excessive Vit/Min Intake Nutrition Etiology: Physiological Causes Nutrition Problem/Etiology/Sym: Excessive vit/min intake as related to physiological causes as evidenced by 2+ pitting edema BLE. Energy Requirement: 1836 (M [address] Kirill X 1.1 X 1.0) Protein Requirement: 81 (1 g protein/kg elevated due to age and condition) Fluid Requirement: 1836 (1mL/kcal) Diet Type: CHF Diet Nutrition Intervention: Cont diet as ordered, Encourage intake Drug: Diuretics, Warfarin Drug/Nutrition Recommendations: Check Serum K+, Potassium Supplement, No High Vitamin K Foods Do Not Serve Any of the Follow: Broccoli, Brussel Sprouts, Spinach, [place] Lettuce, Cranberry Juice Additional Diet Restrictions: NO HIGH VIT K FOODS Nutrition Monitoring & Eval Nutrition Goals: Eat 50-100% Meal Nutrition Follow-Up: Fair Intake Nutrition Monitoring: Pt consuming 25-75% of meals offered. RD Patient Assessment Time: [address] Assessment Type: RD Assessment Patient Nutrition Acuity: 2-Moderate Follow Up Date: Jan 18, 2019 Nutritional Comment: Pt admitted due to shortness of breath. Dx with dyspnea. Hx of CKD, A-fib, hypothyroid, CAD, cognative impairment, urinary retention, hyperlipidema, UTI, and CABG. MD note reports low appetite. Pt currently on warfarin. Will not serve high vitamin K foods. Pt has 2+ pitting edema in BLE. Labs of significance include: Hgb 13.1, Hct 39.3, Na 134, and albumin of 3.2 are decreased. BUN of 32, creatinine of 1.80, AST of 280, ALT of 210, and BNP of 1010 are elevated. Monitor for adequate intake. -FE 01/15 Pt on heart failure diet with 25-75% intake at meals offered. Pt taking warfarin, will not offer high vit k foods, and furosemide (K-wasting). Currently with 2+ pitting edema BLE. RBC of 3.87, Hgb of 11.9, and Hct of 36.7 are decreased. BUN of 31 and creatinine of 1.80 are elevated. Continue to monitor for adequate intake and weight due to edema. -DANIELA FORRESTER Jan 15, 2019 11:04
[2019-01-15 11:25] VITALS: BP 146/92
--- NOTE | 2019-01-15 13:37 | Antimicrobial Stewardship ---
Antimicrobial Time Out Antimicrobial Stewardship MD Service: Hospitalist Indications: UTI Antimicrobial Used ERTAPENEM 500MG Start Date: Jan 13, 2019 Culture Results: Yes (COAG POS STAPH - PENDING SENSITIVITIES ) Eligible for PO Conversion Eligable for PO Conversion: No Reviewed with Provider Reviewed w/ Provider on Rounds: No Comments Comments STARTED ON ERTAPENEM FOR CATH UTI, ORGANISM ID STAPH (COAG POS) AND WAITING FOR SENSITIVITIES. MAY NEED TO ADJUST THERAPY IF MRSA, NO HX OF MRSA WITH THIS HOSPITAL. NATHANIEL PHAM Jan 15, 2019 13:37
[2019-01-15] MEDS: WARFARIN SOD 1 MG TAB PO SCH (13:40)
[2019-01-15 16:47] VITALS: BP 135/114
[2019-01-15 18:52] VITALS: BP 130/100
[2019-01-15] MEDS: NS 0.9% IVPB SCH (21:52)
[2019-01-15] MEDS: ERTAPENEM IVPB SCH (21:52)
[2019-01-16] VITALS (7 sets, daily range): BP systolic 125–155; BP diastolic 80–124
[2019-01-16 06:12] LABS: PLATELET COUNT, AUTOMATED 291 K/uL (150-450)
[2019-01-16] MEDS: LEVOTHYROXINE SOD 0.05 MG TAB PO SCH (06:13)
[2019-01-16 06:14] LABS: INR 3.03
[2019-01-16] MEDS: FUROSEMIDE 20 MG TAB PO SCH (08:16)
[2019-01-16] MEDS: MAGNESIUM OXIDE 400 MG TAB PO SCH (08:16)
[2019-01-16] MEDS: POTASSIUM CHL 10 MEQ TABCR PO SCH ×2 (10:17→17:29)
--- NOTE | 2019-01-16 10:26 | Hospitalist Progress Note ---
Subjective Progress Notes Subjective Edema better with BLANE hose and restarting Lasix. Echo does show further decrease in EF and increase in PA pressures. Dyspneic and desaturation on exertion (on 2L). Physical Exam Vital Signs Date Time Temp Pulse Resp B/P (MAP) Pulse Ox O2 Delivery O2 Flow Rate FiO2 01/16/19 07:46 95 Nasal Cannula 2.0 01/16/19 07:12 97.4 93 125/92 (103) 01/16/19 03:15 20 Intake and Output 01/16/19 07:01 Intake Total 240 ml Output Total 1225 ml Balance -985 ml Intake Oral 240 ml Output Urine Total 1225 ml General Appearance: Alert, Awake Cardiovascular: Other (Irregular with systolic and diastolic murmurs) Respiratory: Other (fairly clear) Extremities: Warm, Perfused, Edema (1+ both LE/BLANE hose on) Result Diagram: 01/16/19 0555 01/16/19 0555 Item Value Date Time Prothrombin Time 32.0 seconds H 01/16/19 0555 Prothromb Time International Ratio 3.03 01/16/19 0555 Albumin 2.8 g/dl L 01/16/19 0555 Total Protein 5.9 g/dl L 01/16/19 0555 Alkaline Phosphatase 84 U/L 01/16/19 0555 Alanine Aminotransferase (ALT/SGPT) 135 U/L H 01/16/19 0555 Aspartate Amino Transf (AST/SGOT) 101 U/L H 01/16/19 0555 Total Bilirubin 0.9 mg/dl 01/16/19 0555 Assessment and Plan Problems: (1) Dyspnea Status: Acute Assessment & Plan: He does have worsening of his heart failure with a decrease of his EF to 25-30% (from 35%) and worsening pulmonary hypertension. Suspect pulmonary hypertension is the primary driving factor in edema (and dyspnea). CXR shows no pulmonary edema and a small pleural effusion has actually improved. The patient has taken off his O2 frequently here. Suspect he takes it off at [facility] at times. This would account for the worsening of his pulmonary HTN. His LFTs are elevated likely due to passive congestion of the liver. He is back on his oral Lasix. Monitor. (2) Atrial fibrillation Status: Chronic Assessment & Plan: He has not been on any rate control medications since he had significant bradycardia a couple of months ago. He is still on warfarin for CVA prophylaxis. INR therapeutic. (3) Hypothyroidism Status: Chronic Assessment & Plan: Will continue replacement. TSH is still pending. (4) Cognitive dysfunction Status: Chronic Assessment & Plan: He appears to be fairly stable with respect to this. (5) Chronic kidney disease Status: Chronic Assessment & Plan: His baseline creatinine is is 1-4-1.8 range. His creatinine was modestly elevated to 2.1 at time of admission. He has improved with the initial holding of his diuretic and has remained stable since resuming low dose Lasix. Continue to monitor. (6) Urinary retention Status: Chronic Assessment & Plan: Indwelling Craig catheter. 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 He has been on ertapenem, but this would most likely not cover the MRSA. Will stop antibiotics today. (7) Hypokalemia Status: Acute Assessment & Plan: Due to diuresis. Will replace with oral supplements. Watch labs. Exam Sepsis Risk: No Definite Risk Problem Qualifiers (1) Chronic kidney disease: Chronic kidney disease stage: stage 3 (moderate) Qualified Codes: N18.3 - Chronic kidney disease, stage 3 (moderate) OSMAN GONZALEZ MD Jan 16, 2019 10:26
--- NOTE | 2019-01-16 12:10 | NUR ---
Occupational Therapy Impression Pt alert and agreeable to tx. Min-Mod Ax2 sit<>stand from low couch. Min-Mod Ax2 side steps x5-6 with RW couch to chair. Pt seated up in chair at end of tx. SpO2 WNL on 2L at rest and 5L with activity. Recommend return to [facility] with continued OT services when medically appropriate. Occupational Therapy Goals 1) Pt will be Min A toilet task. Patient's Goal
--- NOTE | 2019-01-16 12:11 | NUR ---
Occupational Therapy Impression Pt alert and agreeable to tx. Min-Mod Ax2 sit<>stand from low couch. Min-Mod Ax2 side steps x5-6 with RW couch to chair. Pt seated up in chair at end of tx. SpO2 WNL on 2L at rest and 5L with activity. Recommend return to [facility] with continued OT services when medically appropriate. Occupational Therapy Goals 1) Pt will be Min A toilet task. Patient's Goal
[2019-01-16] MEDS: WARFARIN SOD 1 MG TAB PO SCH (12:45)
--- NOTE | 2019-01-16 14:34 | NUR ---
Physical Therapy Impression PT/OT co-evaluation complete. Pt presented with weakness and decreased tolerance to activity. Pt transferred sit<>stand with ModAx2 and RW use to stand from couch. Pt took several side steps to ambulate from couch to reclining chair. MinAx2 provided to maintain balance. Pt fatigued quickly and reported needing to sit. O2 on 5L for ambulation. Pt left sitting in chair, with O2 on, call light in reach, and present. Pt would benefit from further skilled PT care to improve strength/endurance to ensure safety during transfers. Rec discharge to [facility] with PT when medically appropriate. Physical Therapy Goals 1. Maintain current level of function Patient's Goals
--- NOTE | 2019-01-16 14:34 | NUR ---
This Physical Therapist or Welding [employer] was present for the entire physical therapy session directing the services, making the skilled judgement, and was not engaged in treating another patient or doing another task at the same time as the treatment session. Addendum: 01/16/19 at 1435 by CHICHO CHACON PT Amended: Links added.
[2019-01-16] MEDS: ACETAMINOPHEN 325 MG TAB PO PRN (18:01)
[2019-01-17 03:45] VITALS: BP 151/110
[2019-01-17] MEDS: LEVOTHYROXINE SOD 0.05 MG TAB PO SCH (05:33)
[2019-01-17 05:47] VITALS: BP 148/98
[2019-01-17 07:29] VITALS: BP 149/108
[2019-01-17] MEDS: FUROSEMIDE 20 MG TAB PO SCH (08:03)
[2019-01-17] MEDS: POTASSIUM CHL 10 MEQ TABCR PO SCH (08:03)
[2019-01-17] MEDS: MAGNESIUM OXIDE 400 MG TAB PO SCH (08:03)
--- NOTE | 2019-01-17 10:34 | NUR ---
Physical Therapy Impression min A for transfer from rashad chair with mod verbal and tactile cues for hand placement and weight shift. W/c transfer was CGA with same cuing. Patient ambulated with CGA with FWW and w/c follow with nurse for safety. Patient was on 6L of oxygen. Patient ambulated 72 feet with encouragement to keep walking. Patient also received cuing for posture. Patient refused to walk after 72 feet and was pushed back to room in w/c. Patient left in rashad chair with alarm on and all needs met and with nursing and oxygen set to 5L. Physical Therapy Goals 1. Maintain current level of function Patient's Goals
[2019-01-17 12:04] VITALS: BP 153/133
[2019-01-17 12:14] VITALS: BP 123/59
[2019-01-17] MEDS: WARFARIN SOD 2 MG TAB PO SCH (12:52)
--- NOTE | 2019-01-17 13:14 | Hospitalist Depart ---
Discharge Summary Reason for Hosp/Final Diag: (1) Dyspnea Status: Acute Hospital Course & Plan: He does have worsening of his heart failure with a decrease of his EF to 25-30% (from 35%) and worsening pulmonary hypertension. Suspect pulmonary hypertension is the primary driving factor in edema (and dyspnea). CXR shows no pulmonary edema and a small pleural effusion has actually improved. The patient has taken off his O2 frequently here. Suspect he takes it off at [facility] at times. This would account for the worsening of his pulmonary HTN. His LFTs are elevated likely due to passive congestion of the liver. He is back on his oral Lasix. (2) Atrial fibrillation Status: Chronic Hospital Course & Plan: He has not been on any rate control medications since he had significant bradycardia a couple of months ago. He is still on warfarin for CVA prophylaxis. INR therapeutic. (3) Hypothyroidism Status: Chronic Hospital Course & Plan: Will continue replacement. TSH mildly elevated at 5.6, recommend recheck when recovers form this acute episode. (4) Cognitive dysfunction Status: Chronic Hospital Course & Plan: He appears to be fairly stable with respect to this. (5) Chronic kidney disease Status: Chronic Hospital Course & Plan: His baseline creatinine is is 1-4-1.8 range. His creatinine was modestly elevated to 2.1 at time of admission. He has improved with the initial holding of his diuretic and has remained stable since resuming low dose Lasix. (6) Urinary retention Status: Chronic Hospital Course & Plan: Indwelling Craig catheter. 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 He has been on ertapenem, but would not cover the MRSA. Remained asymptomatic after stopping antibiotic. (7) Hypokalemia Status: Acute Hospital Course & Plan: Due to diuresis. Recheck as outpatient and consider s upplementation if needed. Departure Weight (Pounds): 179 Weight (Ounces): 5.0 Result Diagram: 01/16/1955401/16/19554 Condition: Improved PT/OT Follow Up For: PT For Strengthening, OT For ADL's Discharge Instructions Home Meds Reported Medications Albuterol Sulfate 90 Mcg/Act (PROAIR HFA 90 MCG/ACT) 8.5 Gm Hfa.aer.ad, 2 PUFF IH Q4-6H PRN for SHORTNESS OF BREATH, INHALER 11/14/18 Furosemide (FUROSEMIDE) 20 Mg Tablet, 1 TAB PO QDAY, TAB 11/14/18 Magnesium Oxide (MAGNESIUM OXIDE) 250 Mg Tablet, 250 MG PO QDAY 07/05/18 Levothyroxine Sodium (LEVOTHYROXINE SODIUM) 50 Mcg Tablet, 50 MCG PO QDAY, TAB 07/05/18 Oxygen (Oxygen) 2 L Inha, 2 L INH DAILY 12/15/12 Multivitamins W-Minerals (Multiple Vitamin) 1 Tab Tablet, 1 TAB PO DAILY 12/15/12 Fish Oil/Dha/Epa (FISH OIL 1,200 MG FISH OIL) 1 Each Capsule, 1 EACH PO DAILY 12/15/12 Acetaminophen (Tylenol) 325 Mg Tab, 650 MG PO Q6H PRN 12/15/12 Warfarin Sod (Coumadin (Or Equiv)) 2 Mg Tab, 2 MG PO QDAY WEDNESDAY, WEDNESDAY, WEDNESDAY, WEDNESDAY. It is very important that you take your coumadin exactly as prescribed, have blood work to monitor your PT/INR values, and follow up with your health care provider as prescribed. Diet and medication can affect the PT/INR level. Keep your diet pretty much the same day to day. Many foods contain Vitamin K which helps blood to clot and can affect the way your coumadin works. You don't need to avoid foods that have Vitamin K, but you do need to eat about the same amount of them every day. Be sure to tell your provider before changing your diet for any reason (weight loss, illness, etc.) Do not start or discontinue any medications, prescribed or over the counter, except on the advise of your provider or pharmacist. Coumadin (Warfarin) increases the risk of bleeding. 10/19/12 Pravastatin Sod (PRAVACHOL (OR EQUIV)) 20 Mg Tab, 20 MG PO HS, #90 06/26/12 Diet: No Added Salt (ANTHONY) Activity: With Walker Special Instructions: Copies to: SILVERIO PERRY DO ; Venous Thromboembolism Antithrombotics Is Pt On Any Antithrombotics?: Yes [id number] Certification Face to Face Home Health Certification Patient's Primary Care Provider: Silverio Perry DO Institutional Provider conducted the [id number] encounter. Electronic Undersigning Physician Certifies Home Health. I certify that the patient has been under my care and that I had a [id number] encounter that meets the physician epzz-ia-[id number] encounter requirements with this patient. This patient is home-bound due to safety issues and continues to require assistance with ADL's. I certify that based on my findings, that Nursing, Aides and the following Home Health services are medically necessary: Medical Necessity: Rehab Date Face to Face Conducted: Jan 17, 2019 Problem Qualifiers (1) Chronic kidney disease: Chronic kidney disease stage: stage 3 (moderate) Qualified Codes: N18.3 - Chronic kidney disease, stage 3 (moderate) PARKER GALINDO DO Jan 17, 2019 13:14
--- NOTE | 2019-01-17 15:44 | NUR ---
PHYSICAL THERAPY INFORMATION TRANSFER SHEET BED MOBILITY: TRANSFERS: Moderate Assistance 2 person assist GAIT: 4 ' with O2 RW and Minimum Assistance 2 person assist Weightbearing Status: STAIRS: with . EXERCISES: Verbalizes Needs: Yes Understands Directions Yes Cooperative: Yes Family Teaching: No Physical Therapy Comment:
== END 2019-01-17 14:35 | disposition hospice, inpatient (51) | DRG 293 ==
LOC: ER 17:56 → MED 20:35 → INTOOBSV 20:35 → OBSVTOIN 01-16
PROVIDERS: ADMIT Internal Medicine; ATTEND Internal Medicine
DX: I50.23 Acute on chronic systolic (congestive) heart failure (principal); N18.3 Chronic kidney disease, stage 3 (moderate); F03.90 Unspecified dementia, unspecified severity, without behavioral disturbance, psychotic disturbance, mood disturbance, and anxiety; E03.9 Hypothyroidism, unspecified; E78.5 Hyperlipidemia, unspecified; I48.2 Chronic atrial fibrillation; I25.10 Atherosclerotic heart disease of native coronary artery without angina pectoris; I27.20 Pulmonary hypertension, unspecified; E87.6 Hypokalemia; K76.1 Chronic passive congestion of liver; R00.0 Tachycardia, unspecified; R33.9 Retention of urine, unspecified; R09.02 Hypoxemia; Z95.1 Presence of aortocoronary bypass graft; Z88.0 Allergy status to penicillin; Z88.8 Allergy status to other drugs, medicaments and biological substances; Z79.01 Long term (current) use of anticoagulants; Z99.81 Dependence on supplemental oxygen; Z79.899 Other long term (current) drug therapy; Z87.891 Personal history of nicotine dependence; Z86.73 Personal history of transient ischemic attack (TIA), and cerebral infarction without residual deficits; Z22.322 Carrier or suspected carrier of Methicillin resistant Staphylococcus aureus
CPT/HCPCS: 36415; 71045; 76705; 81001; 82040; 82247; 82310; 82374; 82435; 82565; 82947; 83690; 83735; 83880; 84075; 84132; 84155; 84295; 84443; 84450; 84460; 84484; 84520; 85025; 85610; 87040; 87077; 87088; 87186; 93005; 93306; 96374; 97161; 97165; 99284; A4338; G0378; J1335; J1940; J7030; J7050

== ENCOUNTER → 2019-01-13 | Outpatient (CLI) | payer MEDICARE, OTHER ==
[2019-01-14 09:53] VITALS: BMI 25.0
== END ==
LOC: AMB 17:22
PROVIDERS: ATTEND Nurse Practitioner
DX: R06.02 Shortness of breath (principal)
CPT/HCPCS: A0425; A0427

== ENCOUNTER → 2019-01-26 | Outpatient (REF) | payer MEDICARE, OTHER ==
[2019-01-14 09:53] VITALS: BMI 25.0
[2019-01-26 16:22] LABS: PLATELET COUNT, AUTOMATED 279 K/uL (150-450)
== END ==
LOC: ZZLCC 16:02
PROVIDERS: ATTEND Family Medicine
DX: R50.9 Fever, unspecified (principal); R05 Cough; B96.89 Other specified bacterial agents as the cause of diseases classified elsewhere
CPT/HCPCS: 81001; 85025; 87077; 87088; 87186

== ENCOUNTER → 2019-01-26 | Outpatient (CLI) | payer MEDICARE, OTHER ==
[2019-01-14 09:53] VITALS: BMI 25.0
--- NOTE | 2019-01-26 18:14 | RADIOLOGY IMAGING REPORT ---
FACILITY: [facility] PATIENT NAME: Ovidio Álvarez : 1930 MR: [id number] V: [id number] EXAM DATE: ORDERING PHYSICIAN: MANUEL BURCH TECHNOLOGIST: Location: [facility] Patient: Ovidio Álvarez : 1930 Visit/Account:[id number] Date of Sevice: 01/26/2019 2 VIEWS CHEST INDICATION: Chest pain COMPARISON: November 18, 2018 FINDINGS: Cardiomediastinal silhouette: Midline sternotomy changes with stable cardiac enlargement. Lungs: Left basilar opacity. Mild interstitial prominence with early central airspace opacification. Increasing left-sided effusion. Bones and soft tissues: Superior endplate compression deformity L1, partially viewed IMPRESSION: 1. Increasing left-sided effusion with subjective early edematous changes Report Dictated By: Elian Alcantar MD at 01/26/2019 6:08 PM Report E-Signed By: Elian Alcantar MD at 01/26/2019 6:09 PM [id number]
== END ==
LOC: RAD 16:33
PROVIDERS: ATTEND Family Medicine
DX: R05 Cough (principal)
CPT/HCPCS: 71046

== ENCOUNTER 2019-02-09 18:32 | Inpatient (IN) | payer MEDICARE, OTHER ==
[2019-01-14 09:53] VITALS: Ht 177.8 cm; Wt 83.2 kg
[~2019-02-09] VITALS: Ht 177.8 cm; Wt 83.2 kg
--- NOTE | 2019-02-09 18:24 | ER Report ---
History and Physical Time Seen By MD: 18:22 HPI/ROS CHIEF COMPLAINT: short of breath, edema HISTORY OF PRESENT ILLNESS: This is an 88 year old male. He is having worsening shortness of breath and altered mental status. He has baseline dementia and cognitive dysfunction. Patient of Dr. Burch, resident of [facility]. Has had worsening edema with some weaping of the legs. Hypoxia and had increase of oxygen to 5 liters by nasal canula by EMS to bring oxygen into the 90s. Patient is pursed lip breathing. He is complaining of being cold. He is unable to give answers to other questions at this time because of altered mental status. Unsure how this compares to his normal mental status. REVIEW OF SYSTEMS: Unable to obtain. Allergies: Coded Allergies: Penicillins (Verified Allergy, Unknown, 02/09/19) HERNAN Inhibitors (Verified Adverse Reaction, Intermediate, cough, 02/09/19) per report from pt's daughter Home Meds Reported Medications Furosemide (FUROSEMIDE) 20 Mg Tablet, 1 TAB PO BID, TAB 02/09/19 Albuterol Sulfate 90 Mcg/Act (PROAIR HFA 90 MCG/ACT) 8.5 Gm Hfa.aer.ad, 2 PUFF IH Q4-6H PRN for SHORTNESS OF BREATH, INHALER 11/14/18 Magnesium Oxide (MAGNESIUM OXIDE) 250 Mg Tablet, 250 MG PO QDAY 07/05/18 Levothyroxine Sodium (LEVOTHYROXINE SODIUM) 50 Mcg Tablet, 50 MCG PO QDAY, TAB 07/05/18 Oxygen (Oxygen) 2 L Inha, 2 L INH DAILY 12/15/12 Multivitamins W-Minerals (Multiple Vitamin) 1 Tab Tablet, 1 TAB PO DAILY 12/15/12 Fish Oil/Dha/Epa (FISH OIL 1,200 MG FISH OIL) 1 Each Capsule, 1 EACH PO DAILY 12/15/12 Acetaminophen (Tylenol) 325 Mg Tab, 650 MG PO Q6H PRN 12/15/12 Warfarin Sod (Coumadin (Or Equiv)) 2 Mg Tab, 2 MG PO QDAY WEDNESDAY, WEDNESDAY, WEDNESDAY, WEDNESDAY. It is very important that you take your coumadin exactly as prescribed, have blood work to monitor your PT/INR values, and follow up with your health care provider as prescribed. Diet and medication can affect the PT/INR level. Keep your diet pretty much the same day to day. Many foods contain Vitamin K which helps blood to clot and can affect the way your coumadin works. You don't need to avoid foods that have Vitamin K, but you do need to eat about the same amount of them every day. Be sure to tell your provider before changing your diet for any reason (weight loss, illness, etc.) Do not start or discontinue any medications, prescribed or over the counter, except on the advise of your provider or pharmacist. Coumadin (Warfarin) increases the risk of bleeding. 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, resident of [facility] Hx Smoking: Yes (60 YEARS AGO) Smoking Status: Former Smoker Exposure to Second Hand Smoke?: No Hx Substance Use Disorder: No (Refuses to say) Hx Alcohol Use: Yes Constitutional Vital Sign - Last 24 Hours 02/09/19 02/09/19 02/09/19 02/09/19 18:26 18:32 18:38 18:47 Temp 99.1 Pulse 121 160 155 Resp 24 13 20 B/P (MAP) 125/112 Pulse Ox 70 91 88 O2 Delivery Room Air O2 Flow Rate 6.0 02/09/19 02/09/19 02/09/19 02/09/19 19:00 19:02 19:17 19:30 Pulse 129 107 Resp 11 17 B/P (MAP) 185/136 (152) 170/117 (134) Pulse Ox 94 95 02/09/19 02/09/19 02/09/19 02/09/19 19:32 19:37 19:52 20:00 Pulse 105 97 105 Resp 33 23 30 B/P (MAP) 144/114 (124) Pulse Ox 92 100 98 02/09/19 02/09/19 02/09/19 02/09/19 20:07 20:12 20:27 20:30 Pulse 107 107 88 Resp 27 29 25 B/P (MAP) 128/100 (109) Pulse Ox 91 91 96 02/09/19 02/09/19 02/09/19 02/09/19 20:42 20:57 21:00 21:03 Pulse 123 98 Resp 38 29 B/P (MAP) 108/87 (94) Pulse Ox 91 92 O2 Flow Rate 4.0 02/09/19 02/09/19 21:05 21:20 Pulse 93 112 Resp 20 26 Pulse Ox 94 88 Physical Exam General Appearance: The patient is alert. but appears confused. Having respiratory distress, improved with increased oxygen. Eyes: Pupils are equal, round. No pallor, injection or icterus. ENT: Mucous membranes are dry, but otherwise normal. Neck: Supple and non tender. Respiratory: Lungs diminished with some rales throughout. Pursed lip breathing with tachypnea. Cardiovascular: Tachycaria and irregularly irregular. No murmurs, gallops or rubs. Normal capillary refill. Has 2+ edema in lower legs with weaping sores. Gastrointestinal: Abdomen is soft and non tender. Nondistended. Normal active bowel sounds. Neurological: Alert, oriented to self and , not to place or time. Skin: Warm and dry. Has some breakdown and weaping on right leg, left foot beneat 2nd toe with a sore, but no warmth or redness. Musculoskeletal: Extremities are nontender. DIFFERENTIAL DIAGNOSIS: After history and physical exam, differential diagnosis was considered for patient with shortness of breath, given his history and presentation, likely CHF exacerbation. Medical Decision Making Data Points Result Diagram: 02/09/19182902/09/19 1830 Laboratory Hematology Test 02/09/19 18:30 White Blood Count 9.5 k/uL (4.5-11.0) Red Blood Count 4.63 M/uL (4.00-5.60) Hemoglobin 14.7 g/dL (14.0-18.0) Hematocrit 44.0 % (42.0-52.0) Mean Corpuscular Volume 95.1 fL (80.0-96.0) Mean Corpuscular Hemoglobin 31.9 pg (26.0-33.0) Mean Corpuscular Hemoglobin Concent 33.5 g/dL (32.0-36.0) Red Cell Distribution Width 18.5 % (11.5-14.5) H Platelet Count 347 K/uL (150-450) Mean Platelet Volume 7.5 fL (7.2-11.1) Neutrophils (%) (Auto) 75.0 % (39.4-72.5) H Lymphocytes (%) (Auto) 8.7 % (17.6-49.6) L Monocytes (%) (Auto) 11.2 % (4.1-12.4) Eosinophils (%) (Auto) 4.0 % (0.4-6.7) Basophils (%) (Auto) 1.1 % (0.3-1.4) Nucleated RBC Relative Count (auto) 0.2 /100WBC Neutrophils # (Auto) 7.1 K/uL (2.0-7.4) Lymphocytes # (Auto) 0.8 K/uL (1.3-3.6) L Monocytes # (Auto) 1.1 K/uL (0.3-1.0) H Eosinophils # (Auto) 0.4 K/uL (0.0-0.5) Basophils # (Auto) 0.1 K/uL (0.0-0.1) Nucleated RBC Absolute Count (auto) 0.02 K/uL Chemistry Test 02/09/19 18:30 Sodium Level 139 mmol/L (137-145) Potassium Level 3.8 mmol/L (3.5-5.0) Chloride Level 100 mmol/L (98-107) Carbon Dioxide Level 26 mmol/L (22-30) Blood Urea Nitrogen 39 mg/dl (9-21) Creatinine 1.90 mg/dl (0.66-1.25) Glomerular Filtration Rate Calc 33.8 Random Glucose 131 mg/dl (75-110) Lactate 2.9 mmol/L (0.7-2.1) Calcium Level 9.1 mg/dl (8.4-10.2) Total Bilirubin 1.3 mg/dl (0.2-1.3) Aspartate Amino Transf (AST/SGOT) 46 U/L (0-35) Alanine Aminotransferase (ALT/SGPT) 46 U/L (0-56) Alkaline Phosphatase 99 U/L (0-126) Troponin I 0.073 ng/ml B-Type Natriuretic Peptide 2130 pg/ml (0-100) Total Protein 7.2 g/dl (6.3-8.2) Albumin 3.5 g/dl (3.5-5.0) Coagulation Test 02/09/19 18:30 Prothrombin Time 31.4 seconds (12.0-14.4) Prothromb Time International Ratio 2.96 D-Dimer Quantitative (PE/DVT) 2.11 ug/ml (0-0.50) Urinalysis Test 02/09/19 19:00 Urine Color [place] Urine Clarity Cloudy Urine pH 5.0 pH (4.8-9.5) Urine Specific Rose[place] 1.021 Urine Protein 100 mg/dL (NEGATIVE) Urine Glucose (UA) Negative mg/dL (NEGATIVE) Urine Ketones Negative mg/dL (NEGATIVE) Urine Blood Large (NEGATIVE) Urine Nitrite Negative (NEGATIVE) Urine Bilirubin Negative (NEGATIVE) Urine Urobilinogen Negative mg/dL (0.2-1.9) Urine Leukocyte Esterase Large (NEGATIVE) Urine RBC 315 /HPF (0-2/HPF) Urine WBC 555 /HPF (0-5/HPF) Urine WBC Clumps Many /HPF Urine Squamous Epithelial Cells None /LPF (NONE-FEW) Urine Bacteria Few /HPF (NONE-FEW) Urine Hyaline Casts Many /LPF (NONE-FEW) Urine Mucus Few /HPF (NONE-FEW) Urine Yeast (Budding) Few /HPF EKG/Imaging EKG Interpretation 12 lead EKG: Rhythm: undetermined rhythm. It is regular at times, but no P waves noted, likely junctional but with some frequent PVCs, rate 131 [place]: Left axis deviation QRS: Nonspecific intraventricular block difficult to specify given PVC ST segments: No evidence of ST elevation or depression Imaging CHEST SINGLE AP COMPARISONS: January 26, 2019 ADDITIONAL PERTINENT HISTORY: Confusion and shortness of breath FINDINGS: Cardiomediastinal silhouette: Patient status post median sternotomy. Pulmonary vasculature: Atherosclerotic disease of the thoracic aortic arch. Lung castro: Patchy opacity at the left lung base slightly improved from previous exam. Background interstitial scarring. Pleural spaces: Improved but persistent small left-sided pleural effusion. Osseous structures: Negative. Surrounding soft tissues: Negative. IMPRESSION: 1. Patchy infiltrate involving the left lung base slightly improved from previous exam. 2. Improved but persistent small left-sided pleural effusion. Report Dictated By: Carlos Pope MD at 02/09/2019 10:02 PM ED Course/Re-evaluation Clinical Indication for ER IV: IV Access ED Course Patient improved with increased oxygen. Labs suggest this is CHF exacerbation. Therapeautic INR. Chronic kidney disease about the same. Discussed with Dr. Sánchez and accepted for admission. Given a dose of Lasix 40mg IVP here in the ER. Chronic changes from chronic indwelling romo, Normal white count. Decision to Disposition Date: Feb 09, 2019 Decision to Disposition Time: 21:01 Depart Departure Latest Vital Signs Vital Signs Date Time Temp Pulse Resp B/P (MAP) Pulse Ox O2 Delivery O2 Flow Rate FiO2 02/09/19 21:20 112 26 88 02/09/19 21:03 4.0 02/09/19 21:00 108/87 (94) 02/09/19 18:26 99.1 Room Air Impression: Primary Impression: CHF exacerbation Additional Impressions: Cognitive dysfunction Chronic kidney disease Condition: Condition Unchanged Disposition: Admitted from ER Referrals: MANUEL BURCH DO (PCP) Problem Qualifiers Primary Impression: CHF exacerbation Heart failure type: combined systolic and diastolic Qualified Codes: I50.43 - Acute on chronic combined systolic (congestive) and diastolic (congestive) heart failure Additional Impressions: Chronic kidney disease Chronic kidney disease stage: unspecified stage Qualified Codes: N18.9 - Chronic kidney disease, unspecified SREEKANTH VALDEZ MD Feb 09, 2019 18:24
[~2019-02-09 18:32] MED LIST changes: -WARF1TAB15 PO
--- NOTE | 2019-02-09 18:47 | EKG ---
FACILITY: [facility] PATIENT NAME: JOSE M CASTANEDA : [id number] MR: [id number] V: [id number] EXAM DATE: ORDERING PHYSICIAN: SREEKANTH VALDEZ TECHNOLOGIST: FERMIN Test Reason : SOB Blood Pressure : / mmHG Vent. Rate : 131 BPM Atrial Rate : 131 BPM P-R Int : 000 ms QRS Dur : 136 ms QT Int : 324 ms P-R-T Axes : 000 -78 107 degrees QTc Int : 478 ms Afib with RVR Nonspecific intraventricular block Abnormal ECG When compared with ECG of 13-JAN-2019 18:01, Rate increased by 49 BPM Confirmed by Kwame Villa ([id number]) on 02/09/2019 10:20:38 PM Referred By: JOSÉ MIGUEL Confirmed By:Kwame Jacobo
[2019-02-09 18:49] LABS: PLATELET COUNT, AUTOMATED 347 K/uL (150-450)
[2019-02-09] MEDS ORDERED: FURO-45 PO (19:15)
[2019-02-09 19:46] LABS: INR 2.96
[2019-02-09] MEDS ORDERED: FUROSEMIDE 40 MG/4 ML VIAL IVP ONE (20:00)
[2019-02-09] MEDS ORDERED: FLUSH 10 ML SYR IVP PRN (21:40)
[2019-02-09 22:05] VITALS: BP 91/70
--- NOTE | 2019-02-09 22:10 | RADIOLOGY IMAGING REPORT ---
[place] [facility]IENT NAME: Ovidio Álvarez : 1930 MR: [id number] V: [id number] EXAM DATE: ORDERING PHYSICIAN: SREEKANTH VALDEZ TECHNOLOGIST: Location: [facility] [place] Patient: Ovidio Álvarez : 1930 Visit/Account:[id number] Date of Sevice: 02/09/2019 CHEST SINGLE AP COMPARISONS: January 26, 2019 ADDITIONAL PERTINENT HISTORY: Confusion and shortness of breath FINDINGS: Cardiomediastinal silhouette: Patient status post median sternotomy. Pulmonary vasculature: Atherosclerotic disease of the thoracic aortic arch. Lung castro: Patchy opacity at the left lung base slightly improved from previous exam. Background i nterstitial scarring. Pleural spaces: Improved but persistent small left-sided pleural effusion. Osseous structures: Negative. Surrounding soft tissues: Negative. IMPRESSION: 1. Patchy infiltrate involving the left lung base slightly improved from previous exam. 2. Improved but persistent small left-sided pleural effusion. Report Dictated By: Carlos Pope MD at 02/09/2019 10:02 PM Report E-Signed By: Carlos Pope MD at 02/09/2019 10:04 PM WSN:[id number]
--- NOTE | 2019-02-09 22:34 | History & Physical ---
History of Present Illness Chief Complaint hypoxia History of Present Illness 88M presented with SOB. PMHx significant for chronic hypoxia, pulmonary HTN, CHF. Reports increased SOB, AMS. Lower extremity edema noted worse than previous by family. He resides at [facility]. O2 was increased from baseline 2-3L to 5L, patient unable to participate in care. Hi BNP is elevated over previous level. He is admitted for further management. History Problems: (1) Pulmonary hypertension, moderate to severe (2) Acute and chronic respiratory failure with hypoxia (3) Cognitive dysfunction Status: Chronic (4) Chronic kidney disease Status: Chronic (5) HFrEF (heart failure with reduced ejection fraction) Status: Chronic Home Meds Reported Medications Furosemide (FUROSEMIDE) 20 Mg Tablet, 1 TAB PO BID, TAB 02/09/19 Albuterol Sulfate 90 Mcg/Act (PROAIR HFA 90 MCG/ACT) 8.5 Gm Hfa.aer.ad, 2 PUFF IH Q4-6H PRN for SHORTNESS OF BREATH, INHALER 11/14/18 Magnesium Oxide (MAGNESIUM OXIDE) 250 Mg Tablet, 250 MG PO QDAY 07/05/18 Levothyroxine Sodium (LEVOTHYROXINE SODIUM) 50 Mcg Tablet, 50 MCG PO QDAY, TAB 07/05/18 Oxygen (Oxygen) 2 L Inha, 2 L INH DAILY 12/15/12 Multivitamins W-Minerals (Multiple Vitamin) 1 Tab Tablet, 1 TAB PO DAILY 12/15/12 Fish Oil/Dha/Epa (FISH OIL 1,200 MG FISH OIL) 1 Each Capsule, 1 EACH PO DAILY 12/15/12 Acetaminophen (Tylenol) 325 Mg Tab, 650 MG PO Q6H PRN 12/15/12 Warfarin Sod (Coumadin (Or Equiv)) 2 Mg Tab, 2 MG PO QDAY WEDNESDAY, WEDNESDAY, WEDNESDAY, WEDNESDAY. It is very important that you take your coumadin exactly as prescribed, have blood work to monitor your PT/INR values, and follow up with your health care provider as prescribed. Diet and medication can affect the PT/INR level. Keep your diet pretty much the same day to day. Many foods contain Vitamin K which helps blood to clot and can affect the way your coumadin works. You don't need to avoid foods that have Vitamin K, but you do need to eat about the same amount of them every day. Be sure to tell your provider before changing your diet for any reason (weight loss, illness, etc.) Do not start or discontinue any medications, prescribed or over the counter, except on the advise of your provider or pharmacist. Coumadin (Warfarin) increases the risk of bleeding. 10/19/12 Pravastatin Sod (PRAVACHOL (OR EQUIV)) 20 Mg Tab, 20 MG PO HS, #90 06/26/12 Discontinued Reported Medications Furosemide (FUROSEMIDE) 20 Mg Tablet, 1 TAB PO QDAY, TAB 11/14/18 Allergies: Coded Allergies: Penicillins (Verified Allergy, Unknown, 02/09/19) HERNAN Inhibitors (Verified Adverse Reaction, Intermediate, cough, 02/09/19) per report from pt's daughter Hx Smoking: Yes (60 YEARS AGO) Smoking Status: Former Smoker Exposure to Second Hand Smoke?: No Caffeine Intake: Tea Caffeine/Cups Per Day: 2 CUPS PER DAY Hx Alcohol Use: Yes Hx Substance Use Disorder: No (Refuses to say) Social Drug Use: Never Review of Systems Other unable to obtain Exam Vital Signs Vital Signs Date Time Temp Pulse Resp B/P (MAP) Pulse Ox O2 Delivery O2 Flow Rate FiO2 02/09/19 21:40 83 25 95 02/09/19 21:30 118/91 (100) 02/09/19 21:03 4.0 02/09/19 18:26 99.1 Room Air General Appearance: Alert, Awake, Afebrile, Other (moderate respiratory distress) Neuro: No Gross deficits Cardiovascular: Normal Rhythm & Peripheral Pulses Respiratory: Other (faint crackles) GI: Abd Soft and Non-Tender Extremities: Soft and Non Tender, Warm, Pulses, Perfused, Edema (severe to thig h, weaping) Medical Decision Making Data Points Result Diagram: 02/09/19182902/09/191829 Assessment and Plan Problems: (1) Acute and chronic respiratory failure with hypoxia Assessment & Plan: Baseline 3L O2. Worsening secondary to CHF exacerbation but severe pulmonary hypertension also contributes heavily. He is approaching end stage of his disease and how much improvement can be achieved remains to be seen. Treatment as below. (2) CHF exacerbation Status: Acute Assessment & Plan: Begin 40mg BID IV Lasix. Monitor renal function, likely pulm onary hypertension is contributing more to SOB than CHF. (3) Pulmonary hypertension, moderate to severe Assessment & Plan: Severe per ECHO . Continue supplemental O2, he tends to remove it on his own. (4) HFrEF (heart failure with reduced ejection fraction) Status: Chronic Assessment & Plan: EF 20-25% in on ECHO. (5) Chronic kidney disease Status: Chronic Assessment & Plan: Monitor renal function and output while diuresing. (6) Cognitive dysfunction Status: Chronic (7) Atrial fibrillation Status: Chronic Assessment & Plan: He is on warfarin, no rate control. Rate improved with improving hypoxia. Venous Thromboembolism Antithrombotics Is Pt On Any Antithrombotics?: Yes Exam Sepsis Risk: No Definite Risk Problem Qualifiers (1) CHF exacerbation: Heart failure type: combined systolic and diastolic Qualified Codes: I50.43 - Acute on chronic combined systolic (congestive) and diastolic (congestive) heart failure (2) Chronic kidney disease: Chronic kidney disease stage: unspecified stage Qualified Codes: N18.9 - Chronic kidney disease, unspecified PARKER GALINDO DO Feb 09, 2019 22:34
[2019-02-09 23:20] VITALS: BP 120/72
[2019-02-10] MEDS: LEVOTHYROXINE SOD 0.05 MG TAB PO SCH (05:28)
[2019-02-10 07:42] VITALS: BP_SYST 108; BP_SYST 150; BP_DIAS 60; BP_DIAS 90
[2019-02-10] MEDS ORDERED: FUROSEMIDE 40 MG/4 ML VIAL IVP SCH (09:00)
[2019-02-10] MEDS: POTASSIUM CHL 20 MEQ TABCR PO SCH ×2 (09:02→17:43)
[2019-02-10] MEDS: FUROSEMIDE 20 MG/2 ML VIAL IVP SCH ×2 (11:09→20:42)
[2019-02-10 11:12] VITALS: BP 118/62
--- NOTE | 2019-02-10 11:51 | Medical Nutrition Therapy ---
Nutrition Anthropometrics Height (Inches): 70.00 Height (Calculated Centimeters: [phone] Weight (Pounds): 185 Weight (Calculated Kilograms): 83.915 BMI: 26.5 Hx Weight Loss: Yes (Gradual wt loss ) Rupert Nutrition Score: Probably Inadequate Rupert Nutrition Risk Score: 13 Dietary Referral Nutrition Risk Factors: Recent Nutrition Impact Nutrition Risk Comment: Physical Findings Physical Appearance: Overweight BMI 25-29 Skin Appearance Skin Appearance: Edema Edema Location Modifier: Both Edema Location: Leg Type of Edema: Degree of Edema: 2+ Gastrointestinal Symptoms GI Symtoms: Tube Present: Bowel Sounds: Recent Bowel Pattern: Stool Characteristics: Nutrition/Food History Good Nutritional Diagnosis Nutritional Risk Acuity 2: CHF w/Complication, Chronic Renal Failure Nutritional Risk Acuity 3: Fair Appetite, Alzheimer's Nutritional Risk Acuity 4: Good Appetite Past Medical History: CKD, A-fib, hypothyroid, CAD, cognative impairment, urinary retention, hyperlipidema, UTI, CABG Nutritional Acuity: 2-Moderate Nutrition Diagnosis: Decreased Nutrient Needs, Inablility to Feed Self Nutrition Etiology: Physiological Causes Nutrition Problem/Etiology/Sym: Pulmonary HTN, CHF exacerbation, 3+ Pitting Edema Both Feet, 2+ Pitting Edema Both Legs, Fluid restriction Energy Requirement: 2371 (Typical wt (175 lbs)) Protein Requirement: 64 (.8g/kg (CKD)) Fluid Requirement: 1988 (25 mL/kg) Diet Type: Diet as Tolerated WICHO/REG, Fluid Restricted Nutrition Intervention: Obtain Height and Weight Drug: Warfarin Food Likes: Cheeseburgers, Grilled Cheese, Fish, [place] Do Not Serve Any of the Follow: Broccoli, Brussel Sprouts, Spinach, Aucilla Lettuce, Cranberry Juice Nutrition Monitoring & Eval Nutrition Goals: Eat 75-100% Meal Nutrition Follow-Up: Good Intake RD Patient Assessment Time: [address] Assessment Type: RD Assessment Patient Nutrition Acuity: 2-Moderate Follow Up Date: Feb 14, 2019 Nutritional Comment: 02/10/19-Spoke with pt this am. Stated pt has been eating fairly well at [facility]. Wts from [facility] ranging from 176-195 lbs past two months possibly related to fluid retention due to renal function, CHF, pulmonary HTN. CUrrently has 3+ and 2+ pitting edema in both feet and legs respectively. Recieving lasix, KCl (40 mEq) total, warfarin, pravastatin. Pt on WICHO with fluid restriction. Recommend continue with WICHO and daily wts. Will continue to monitor intakes and weights.DAXA BATES Feb 10, 2019 11:51
[2019-02-10] MEDS: NYSTATIN 100,000 U/GM PWD 15GM TP SCH ×2 (12:46→20:43)
[2019-02-10] MEDS ORDERED: WARFARIN SOD 2 MG TAB PO SCH ×2 (13:00)
[2019-02-10 13:04] VITALS: BP 150/62
[2019-02-10] MEDS ORDERED: FUROSEMIDE 20 MG/2 ML VIAL IVP ONE (13:15)
[2019-02-10 14:32] VITALS: BP 150/80
[2019-02-10] MEDS: MORPHINE 2 MG/ML SYR IVP PRN ×3 (14:37→20:43)
--- NOTE | 2019-02-10 19:18 | Hospitalist Progress Note ---
Subjective Progress Notes Subjective The patient is looking better today according to his . Physical Exam Vital Signs Date Time Temp Pulse Resp B/P (MAP) Pulse Ox O2 Delivery O2 Flow Rate FiO2 02/10/19 15:00 99 Oxy Mask 7.0 02/10/19 14:32 99.1 106 22 150/80 (103) Intake and Output 02/10/19 07:02 Intake Total 50 ml Output Total 1075 ml Balance -1025 ml Intake Oral 50 ml IV Total 0 ml Output Urine Total 1075 ml General Appearance: Alert, Awake, Other (Mild respiratory distress.) Neuro: Other (Short term memory is poor.) Cardiovascular: Other (Irregularly irregular.) Respiratory: Other (Decreased BS throughout.) GI: Soft and Non-Tender Extremities: Edema Integumentary: Generalized Fragile Skin Psych: Appropriate Mood & Affect Result Diagram: 02/09/19 1830 02/10/19 0518 Assessment and Plan Problems: (1) Acute and chronic respiratory failure with hypoxia Assessment & Plan: Baseline 3L O2. Worsening secondary to CHF exacerbation but severe pulmonary hypertension also contributes heavily. He is approaching end stage of his disease and how much improvement can be achieved remains to be seen. Treatment as below. (2) CHF exacerbation Status: Acute Assessment & Plan: He received a dose of Lasix 40mg IV in ER. His BP apparently dropped so his Lasix was decreased to 20mg IV bid. Monitor renal function, likely pulmonary hypertension is contributing more to SOB than CHF. (3) Pulmonary hypertension, moderate to severe Assessment & Plan: Severe per ECHO . Continue supplemental O2, he tends to remove it on his own. (4) HFrEF (heart failure with reduced ejection fraction) Status: Chronic Assessment & Plan: EF 20-25% in on ECHO. (5) Chronic kidney disease Status: Chronic Assessment & Plan: Monitor renal function and output while diuresing. (6) Cognitive dysfunction Status: Chronic (7) Atrial fibrillation Status: Chronic Assessment & Plan: He is on warfarin, no rate control. Rate improved with improving hypoxia. Time Spent on Plan of Care: < 30 min Exam Sepsis Risk: No Definite Risk Problem Qualifiers (1) CHF exacerbation: Heart failure type: combined systolic and diastolic Qualified Codes: I50.43 - Acute on chronic combined systolic (congestive) and diastolic (congestive) heart failure (2) Chronic kidney disease: Chronic kidney disease stage: unspecified stage Qualified Codes: N18.9 - Chronic kidney disease, unspecified HILLARY GONZALEZ MD Feb 10, 2019 19:18
[2019-02-10 19:44] VITALS: BP 150/90
[2019-02-10] MEDS: ACETAMINOPHEN 325 MG TAB PO PRN (20:42)
[2019-02-10] MEDS: PRAVASTATIN SOD 20 MG TAB PO SCH (20:43)
[2019-02-11 03:36] VITALS: BP 122/75
[2019-02-11] MEDS: LEVOTHYROXINE SOD 0.05 MG TAB PO SCH (05:50)
[2019-02-11 06:01] LABS: PLATELET COUNT, AUTOMATED 245 K/uL (150-450)
[2019-02-11 06:06] LABS: INR 2.91
[2019-02-11 08:04] VITALS: BP 152/92
[2019-02-11] MEDS: POTASSIUM CHL 20 MEQ TABCR PO SCH ×2 (08:31→17:24)
[2019-02-11] MEDS: NYSTATIN 100,000 U/GM PWD 15GM TP SCH ×2 (08:32→21:00)
[2019-02-11] MEDS: FUROSEMIDE 20 MG/2 ML VIAL IVP SCH ×2 (08:32→20:18)
--- NOTE | 2019-02-11 09:54 | Hospitalist Progress Note ---
Physical Exam Vital Signs Date Time Temp Pulse Resp B/P (MAP) Pulse Ox O2 Delivery O2 Flow Rate FiO2 02/11/19 08:04 97.7 100 16 152/92 (112) 94 High-Flow Nasal Cannula 6.0 Intake and Output 02/11/19 07:02 Intake Total 750 ml Output Total 1575 ml Balance -825 ml Intake Oral 750 ml Output Urine Total 1575 ml # Bowel Movements 1 Result Diagram: 02/11/19 0514 02/11/1914 Assessment and Plan Problems: (1) Acute and chronic respiratory failure with hypoxia Assessment & Plan: Baseline 3L O2. Worsening secondary to CHF exacerbation but severe pulmonary hypertension also contributes heavily. He is approaching end stage of his disease and how much improvement can be achieved remains to be seen. Treatment as below. (2) CHF exacerbation Status: Acute Assessment & Plan: His previous echo showed an ejection fraction of 25-30%. He has received intermittent doses of Lasix. (3) Pulmonary hypertension, moderate to severe Assessment & Plan: Severe per ECHO . (4) HFrEF (heart failure with reduced ejection fraction) Status: Chronic Assessment & Plan: EF 20-25% in on ECHO. (5) Cognitive dysfunction Status: Chronic (6) Atrial fibrillation Status: Chronic Assessment & Plan: He is on chronic treatment with warfarin. His INR is therapeutic. (7) Chronic kidney disease (CKD) stage G3b/A1, moderately decreased glomerular filtration rate (GFR) between 30-44 mL/min/1.73 square meter and albuminuria creatinine ratio less than 30 mg/g (8) Asymptomatic bacteriuria Assessment & Plan: His urine culture grew MRSA, but he is asymptomatic. A repeat culture is pending. Exam Sepsis Risk: No Definite Risk Problem Qualifiers (1) CHF exacerbation: Heart failure type: combined systolic and diastolic Qualified Codes: I50.43 - Acute on chronic combined systolic (congestive) and diastolic (congestive) heart failure JOJO BERNSTEIN DO Feb 11, 2019 09:54
[2019-02-11] MEDS ORDERED: WARFARIN SOD 1 MG TAB PO SCH (13:00)
[2019-02-11 15:45] VITALS: BP 146/84
[2019-02-11] MEDS: PRAVASTATIN SOD 20 MG TAB PO SCH (20:17)
[2019-02-11] MEDS: ACETAMINOPHEN 325 MG TAB PO PRN (20:18)
[2019-02-11 21:08] VITALS: BP 100/50
[2019-02-11] MEDS: MORPHINE 2 MG/ML SYR IVP PRN (22:55)
[2019-02-12 05:03] VITALS: BP 142/90
[2019-02-12] MEDS: LEVOTHYROXINE SOD 0.05 MG TAB PO SCH (05:17)
[2019-02-12] MEDS: MORPHINE 2 MG/ML SYR IVP PRN (05:17)
[2019-02-12 06:10] LABS: INR 2.86
[2019-02-12 07:20] VITALS: BP 142/88
[2019-02-12] MEDS: POTASSIUM CHL 20 MEQ TABCR PO SCH (08:27)
[2019-02-12] MEDS ORDERED: FUROSEMIDE 20 MG TAB PO SCH (09:10)
[2019-02-12] MEDS: NYSTATIN 100,000 U/GM PWD 15GM TP SCH (09:40)
[2019-02-12] MEDS ORDERED: WARF1TAB15 PO (11:12)
--- NOTE | 2019-02-12 11:29 | Hospitalist Depart ---
Discharge Summary Reason for Hosp/Final Diag: (1) Acute and chronic respiratory failure with hypoxia Hospital Course & Plan: He presented with SOB, increased O2 requirement, AMS and worsening edema in his legs. It is secondary to CHF exacerbation but severe pulmonary hypertension also contributes heavily. He is approaching end stage of his disease and how much improvement can be achieved remains to be seen. His troponin was in the borderline region upon admission, but that was likely secondary to CHF exacerbation and CKD. Treatment as below. (2) CHF exacerbation Status: Acute Hospital Course & Plan: His previous echo showed an ejection fraction of 25- 30%. He has received treatment with IV Lasix. His is about 2 liters negative since admission. His O2 requirement is down from a high of 8 liters to 3 liters (which is near his baseline). He will be switched back to oral Lasix. He is to be on a fluid restricted diet at 1.5 liters daily and low sodium intake. If weights are up 5lbs from baseline then his PCP is to be called. He might benefit from being on Coreg, but will defer to his PCP. BNP/BMP on 02/15 (3) HFrEF (heart failure with reduced ejection fraction) Status: Chronic Hospital Course & Plan: EF 20-25% in on ECHO. (4) Pulmonary hypertension, moderate to severe Hospital Course & Plan: Severe per ECHO . (5) Asymptomatic bacteriuria Hospital Course & Plan: His urine culture grew MRSA and a repeat culture is growing coag positive GPC. He has a chronic indwelling catheter. He is afebrile and has a normal WBC. 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 However, if he develops fevers then UTI needs to be considered. (6) Atrial fibrillation Status: Chronic Hospital Course & Plan: He is on chronic treatment with warfarin. His INR is therapeutic. (7) Chronic kidney disease (CKD) stage G3b/A1, moderately decreased glomerular filtration rate (GFR) between 30-44 mL/min/1.73 square meter and albuminuria creatinine ratio less than 30 mg/g Hospital Course & Plan: Baseline creatinine is 1.4-2.1. 1.9 today. BMP on 02/15 (8) Cognitive dysfunction Status: Chronic Departure Weight (Pounds): 183 Weight (Ounces): 8.0 Result Diagram: 02/11/1951302/11/19513 Item Value Date Time Prothromb Time International Ratio 2.86 02/12/19 0512 Prothromb Time International Ratio 2.96 02/09/19 1830 Prothromb Time International Ratio 2.91 02/11/19 0514 White Blood Count 9.5 k/uL 02/09/19 1830 White Blood Count 6.4 k/uL 02/11/19 0514 Neutrophils (%) (Auto) 75.0 % H 02/09/19 183 Neutrophils (%) (Auto) 61.4 % 02/11/1914 Hemoglobin 14.7 g/dL 02/09/19 1830 Hemoglobin 12.4 g/dL L 02/11/19 0514 Urine Leukocyte Esterase Large H 02/09/19 1900 Urine RBC 315 /HPF 02/09/19 1900 Urine WBC 555 /HPF 02/09/19 1900 Urine WBC Clumps Many /HPF 02/09/19 1900 Urine Squamous Epithelial Cells None /LPF 02/09/19 1900 Urine Bacteria Few /HPF 02/09/19 1900 Urine Hyaline Casts Many /LPF H 02/09/19 1900 Urine Mucus Few /HPF 02/09/19 1900 Urine Yeast (Budding) Few /HPF H 02/09/19 1900 Blood Urea Nitrogen 39 mg/dl H 02/09/19 1830 Creatinine 1.90 mg/dl H 02/09/19 1830 Sodium Level 139 mmol/L 02/09/19 1830 Potassium Level 3.8 mmol/L 02/09/19 1830 Chloride Level 100 mmol/L 02/09/19 1830 Carbon Dioxide Level 26 mmol/L 02/09/19 1830 Random Glucose 131 mg/dl H 02/09/19 1830 Lactate 2.9 mmol/L H 02/09/19 1830 Calcium Level 9.1 mg/dl 02/09/19 1830 Total Bilirubin 1.3 mg/dl 02/09/19 1830 Aspartate Amino Transf (AST/SGOT) 46 U/L H 02/09/19 1830 Alanine Aminotransferase (ALT/SGPT) 46 U/L 02/09/19 1830 Alkaline Phosphatase 99 U/L 02/09/19 1830 Troponin I 0.073 ng/ml 02/09/19 1830 B-Type Natriuretic Peptide 2130 pg/ml H 02/09/19 1830 B-Type Natriuretic Peptide 1680 pg/ml H 02/10/19 0518 Lactate 1.2 mmol/L 02/10/19 0703 Blood Urea Nitrogen 37 mg/dl H 02/10/19 0518 Creatinine 1.80 mg/dl H 02/10/19 0518 Blood Urea Nitrogen 34 mg/dl H 02/11/19 0514 Creatinine 1.90 mg/dl H 02/11/19513 Potassium Level 3.3 mmol/L L 02/10/19517 Potassium Level 3.8 mmol/L 02/11/19513 Blood cultures from 02/09 without growth x2. SPEC #: [id number] LI: 02/11/19 STATUS: RES REQ #: [id number] RECD: 02/11/[address]: JOJO BERNSTEIN DO SOURCE: STRCATH ENTR: 02/11/[address]: MANUEL BURCH DO SPDESC: PARKER VILLA DO ORDERED: CULT URINE COMMENTS: Has specimen been collected/obtained? Y Procedure Result Verified ----- ------- URINE CULTURE Preliminary 02/12/19 Organism 1 STAPHYLOCOCCUS, COAGULASE POS >100,000 COL/ML ID AND SENSITIVITY TO FOLLOW SPEC #: [id number] LI: 02/09/19 STATUS: COMP REQ #: [id number] RECD: 02/09/[address]: SREEKANTH VALDEZ MD SOURCE: FOLEYCATH ENTR: 02/09/[address]: MANUEL BURCH DO [facility]: ORDERED: CULT URINE Procedure Result Verified -- URINE CULTURE Final 02/11/19 Organism 1 STAPHYLOCOCCUS AUREUS >100,000 COL/ML STA AUREUS M.I.C. RX --------- --- CIPROFLOXACIN >=8 R GENTAMICIN <=0.5 S LEVOFLOXACIN >=8 R LINEZOLID 2 S NITROFURANTOIN <=16 S OXACILLIN >=4 R BENZYLPENICILLIN >=0.5 R RIFAMPIN <=0.5 S TETRACYCLINE <=1 S TRIMETHOPRIM/SULFAMETHOXAZOLE <=10 S VANCOMYCIN 1 S Imaging 02/09/18 CXR - 1. Patchy infiltrate involving the left lung base slightly improved from previous exam. 2. Improved but persistent small left-sided pleural effusion. EKG Vent. Rate : 131 BPM Atrial Rate : 131 BPM P-R Int : 000 ms QRS Dur : 136 ms QT Int : 324 ms P-R-T Axes : 000 -78 107 degrees QTc Int : 478 ms Afib with RVR Nonspecific intraventricular block Abnormal ECG When compared with ECG of 13-JAN-2019 18:01, Rate increased by 49 BPM Confirmed by Parker Villa ([id number]) on 02/09/2019 10:20:38 PM Condition: Improved Discharge: Detention Discharge Instructions Home Meds Active Scripts Warfarin Sodium (WARFARIN SODIUM) 1 Mg Tablet, 1 MG PO QDAY@1300 for 30 Days, Prov:ADAM SARMIENTO MD 02/12/19 Reported Medications Furosemide (FUROSEMIDE) 20 Mg Tablet, 1 TAB PO BID, TAB 02/09/19 Albuterol Sulfate 90 Mcg/Act (PROAIR HFA 90 MCG/ACT) 8.5 Gm Hfa.aer.ad, 2 PUFF IH Q4-6H PRN for SHORTNESS OF BREATH, INHALER 11/14/18 Magnesium Oxide (MAGNESIUM OXIDE) 250 Mg Tablet, 250 MG PO QDAY 07/05/18 Levothyroxine Sodium (LEVOTHYROXINE SODIUM) 50 Mcg Tablet, 50 MCG PO QDAY, TAB 07/05/18 Oxygen (Oxygen) 2 L Inha, 2 L INH DAILY 12/15/12 Multivitamins W-Minerals (Multiple Vitamin) 1 Tab Tablet, 1 TAB PO DAILY 12/15/12 Fish Oil/Dha/Epa (FISH OIL 1,200 MG FISH OIL) 1 Each Capsule, 1 EACH PO DAILY 12/15/12 Acetaminophen (Tylenol) 325 Mg Tab, 650 MG PO Q6H PRN 12/15/12 Pravastatin Sod (PRAVACHOL (OR EQUIV)) 20 Mg Tab, 20 MG PO HS, #90 06/26/12 Discontinued Reported Medications Warfarin Sod (Coumadin (Or Equiv)) 2 Mg Tab, 1 MG PO QDAY Wed, Wed, Wed, Fri, Sat, Sun It is very important that you take your coumadin exactly as prescribed, have blood work to monitor your PT/INR values, and follow up with your health care provider as prescribed. Diet and medication can affect the PT/INR level. Keep your diet pretty much the same day to day. Many foods contain Vitamin K which helps blood to clot and can affect the way your coumadin works. You don't need to avoid foods that have Vitamin K, but you do need to eat about the same amount of them every day. Be sure to tell your provider before changing your diet for any reason (weight loss, illness, etc.) Do not start or discontinue any medications, prescribed or over the counter, except on the advise of your provider or pharmacist. Coumadin (Warfarin) increases the risk of bleeding. 10/19/12 Furosemide (FUROSEMIDE) 20 Mg Tablet, 1 TAB PO QDAY, TAB 11/14/18 Diet: Fluid Restricted, No Added Salt (ANTHONY) Activity: As Tolerated Special Instructions: Fluid restrict to 1500cc of fluid daily Check weight daily and call PCP for increase of 5 pounds from baseline. BMP/BNP/INR on 02/15 Copies to: MANUEL BURCH DO ; Venous Thromboembolism Antithrombotics Is Pt On Any Antithrombotics?: Yes Problem Qualifiers (1) CHF exacerbation: Heart failure type: combined systolic and diastolic Qualified Codes: I50.43 - Acute on chronic combined systolic (congestive) and diastolic (congestive) heart failure ADAM SARMIENTO MD Feb 12, 2019 11:29
== END 2019-02-12 13:02 | DRG 291 ==
LOC: ER 18:37 → MED 21:23
PROVIDERS: ADMIT Internal Medicine; ATTEND Internal Medicine
DX: I13.0 Hypertensive heart and chronic kidney disease with heart failure and stage 1 through stage 4 chronic kidney disease, or unspecified chronic kidney disease (principal); J96.21 Acute and chronic respiratory failure with hypoxia; I50.43 Acute on chronic combined systolic (congestive) and diastolic (congestive) heart failure; N18.3 Chronic kidney disease, stage 3 (moderate); I27.20 Pulmonary hypertension, unspecified; Z99.81 Dependence on supplemental oxygen; I48.2 Chronic atrial fibrillation; Z79.01 Long term (current) use of anticoagulants; F03.90 Unspecified dementia, unspecified severity, without behavioral disturbance, psychotic disturbance, mood disturbance, and anxiety; Z86.73 Personal history of transient ischemic attack (TIA), and cerebral infarction without residual deficits; Z87.891 Personal history of nicotine dependence; E03.9 Hypothyroidism, unspecified; Z22.322 Carrier or suspected carrier of Methicillin resistant Staphylococcus aureus
CPT/HCPCS: 36415; 71045; 81001; 82040; 82247; 82310; 82374; 82435; 82565; 82947; 83605; 83880; 84075; 84132; 84155; 84295; 84450; 84460; 84484; 84520; 85025; 85379; 85610; 87040; 87077; 87088; 87186; 93005; 96374; 99284; J1940; J2270

== ENCOUNTER → 2019-02-09 | Outpatient (REF) | payer MEDICARE, OTHER ==
[2019-01-14 09:53] VITALS: BMI 25.0
[~2019-02-09] MED LIST changes: +WARF1TAB15 PO
== END ==
LOC: ZZSENDIN 16:25
PROVIDERS: ATTEND Family Medicine
DX: R06.00 Dyspnea, unspecified (principal); N18.3 Chronic kidney disease, stage 3 (moderate)
CPT/HCPCS: 82310; 82374; 82435; 82565; 82947; 83880; 84132; 84295; 84520

== ENCOUNTER → 2019-02-09 | Outpatient (CLI) | payer MEDICARE, OTHER ==
[2019-01-14 09:53] VITALS: BMI 25.0
== END ==
LOC: AMB 18:00
PROVIDERS: ATTEND Nurse Practitioner
DX: R60.9 Edema, unspecified (principal); R41.0 Disorientation, unspecified; M79.662 Pain in left lower leg; M79.661 Pain in right lower leg; R45.1 Restlessness and agitation; R68.83 Chills (without fever); R09.02 Hypoxemia
CPT/HCPCS: A0425; A0429

== ENCOUNTER → 2019-02-15 | Outpatient (REF) | payer MEDICARE, OTHER ==
[2019-01-14 09:53] VITALS: BMI 25.0
[~2019-02-15] MED LIST changes: +WARF1TAB15 PO
== END ==
LOC: ZZLCC 17:39
PROVIDERS: ATTEND Family Medicine
DX: I50.43 Acute on chronic combined systolic (congestive) and diastolic (congestive) heart failure (principal)
CPT/HCPCS: 83880

== ENCOUNTER → 2019-02-18 | Outpatient (REF) | payer MEDICARE, OTHER ==
[2019-01-14 09:53] VITALS: BMI 25.0
== END ==
LOC: ZZLCC 00:02
PROVIDERS: ATTEND Family Medicine
DX: I50.43 Acute on chronic combined systolic (congestive) and diastolic (congestive) heart failure (principal)
CPT/HCPCS: 82310; 82374; 82435; 82565; 82947; 84132; 84295; 84520

== ENCOUNTER 2019-02-21 02:14 | Emergency (ER) | payer MEDICARE, OTHER ==
[2019-01-14 09:53] VITALS: BMI 25.0
--- NOTE | 2019-02-21 02:14 | ER Report ---
History and Physical Time Seen By MD: 02:11 HPI/ROS CHIEF COMPLAINT: neurologic changes HISTORY OF PRESENT ILLNESS: This is an 88-year-old male. He is a resident of [facility]. Sent here because tonight he was noted to have slurring of his speech, aphasia, facial droop, and inability to track with his eyes. Normally he is a one-person assist, usually is in a wheelchair, but often alert and able to ask for her needs. He has significant change from this tonight. Vital signs were stable although a little bit of hypoxia. His CODE STATUS is DO NOT RESUSCITATE. He does have a history of prior stroke. He does have some baseline dementia. He is on Coumadin for atrial fibrillation. The patient's is at bedside, and on arrival in the ER from EMS, went directly to CAT scan and then to the exam room. At the present time, his said he is at his baseline. REVIEW OF SYSTEMS: Unable to obtain Allergies: Coded Allergies: Penicillins (Verified Allergy, Unknown, 02/09/19) HERNAN Inhibitors (Verified Adverse Reaction, Intermediate, cough, 02/09/19) per report from pt's daughter Home Meds Active Scripts Warfarin Sodium (WARFARIN SODIUM) 1 Mg Tablet, 1 MG PO QDAY@1300 for 30 Days, Prov:ADAM SARMIENTO MD 02/12/19 Reported Medications Furosemide (FUROSEMIDE) 20 Mg Tablet, 1 TAB PO BID, TAB 02/09/19 Albuterol Sulfate 90 Mcg/Act (PROAIR HFA 90 MCG/ACT) 8.5 Gm Hfa.aer.ad, 2 PUFF IH Q4-6H PRN for SHORTNESS OF BREATH, INHALER 11/14/18 Magnesium Oxide (MAGNESIUM OXIDE) 250 Mg Tablet, 250 MG PO QDAY 07/05/18 Levothyroxine Sodium (LEVOTHYROXINE SODIUM) 50 Mcg Tablet, 50 MCG PO QDAY, TAB 07/05/18 Oxygen (Oxygen) 2 L Inha, 2 L INH DAILY 12/15/12 Multivitamins W-Minerals (Multiple Vitamin) 1 Tab Tablet, 1 TAB PO DAILY 12/15/12 Fish Oil/Dha/Epa (FISH OIL 1,200 MG FISH OIL) 1 Each Capsule, 1 EACH PO DAILY 12/15/12 Acetaminophen (Tylenol) 325 Mg Tab, 650 MG PO Q6H PRN 5/16/13 Pravastatin Sod (PRAVACHOL (OR EQUIV)) 20 Mg Tab, 20 MG PO HS, #90 06/26/12 Reviewed Nurses Notes: Yes Hx Smoking: Yes (60 YEARS AGO) Smoking Status: Former Smoker Exposure to Second Hand Smoke?: No Hx Substance Use Disorder: No (Refuses to say) Hx Alcohol Use: Yes (years past) Constitutional Vital Sign - Last 24 Hours 02/21/19 02/21/19 02/21/19 02/21/19 02:23 02:23 02:30 02:44 Temp 97.5 Pulse 106 81 Resp 28 31 B/P (MAP) 147/97 (114) 147/97 139/98 (112) Pulse Ox 91 88 O2 Delivery Room Air 02/21/19 02/21/19 02/21/19 02/21/19 02:47 02:48 03:00 03:14 Pulse 82 Resp 33 B/P (MAP) 147/117 (127) 141/109 (120) Pulse Ox 88 O2 Flow Rate 4.0 02/21/19 02/21/19 02/21/19 02/21/19 03:15 03:30 03:35 03:43 Pulse 78 96 Resp 29 38 B/P (MAP) 156/114 (128) 138/104 (115) Pulse Ox 93 92 02/21/19 03:45 B/P (MAP) 109/66 (80) Physical Exam General Appearance: The patient is alert. No acute distress. Eyes: Pupils are equal, round. Reactive to light. No pallor, injection or icterus. Extraocular movements are intact. ENT: Mucous membranes are very dry. Normal oral mucosa. Posterior oropharynx is otherwise normal. Normal tympanic membranes and canals, some wax in the canals bilaterally Neck: Supple and non tender. Respiratory: Lungs are clear to auscultation. Cardiovascular: Atrial fibrillation with irregularly irregular rhythm. No murmurs, gallops or rubs. Normal capillary refill. Lower extremity edema about 1+. Gastrointestinal: Abdomen is soft and non tender. Nondistended. Normal active bowel sounds. Neurological: Alert and oriented x3. Cranial nerves show no focal deficits. Normal facial motion, no slurred speech, midline tongue, symmetric palate elevation, eye exam as noted above. He does have bilateral weakness which is equal in his lower extremities. Normal motor function and sensory in the upper extremities. Skin: Warm and dry. Skin changes associated with his chronic edema. Musculoskeletal: Extremities are nontender. Full range of motion. No tenderness in palpation of the cervical, thoracic and lumbar spine. DIFFERENTIAL DIAGNOSIS: After history and physical exam, differential diagnosis was considered for patient with neurologic changes that are now resolved, likely TIA. Medical Decision Making Data Points Result Diagram: 02/21/19 0245 02/21/19 0245 Laboratory Hematology Test 02/21/19 02:45 White Blood Count 7.1 k/uL (4.5-11.0) Red Blood Count 4.08 M/uL (4.00-5.60) Hemoglobin 12.6 g/dL (14.0-18.0) L Hematocrit 38.8 % (42.0-52.0) L Mean Corpuscular Volume 95.1 fL (80.0-96.0) Mean Corpuscular Hemoglobin 30.9 pg (26.0-33.0) Mean Corpuscular Hemoglobin Concent 32.5 g/dL (32.0-36.0) Red Cell Distribution Width 18.0 % (11.5-14.5) H Platelet Count 297 K/uL (150-450) Mean Platelet Volume 7.5 fL (7.2-11.1) Neutrophils (%) (Auto) 69.7 % (39.4-72.5) Lymphocytes (%) (Auto) 16.5 % (17.6-49.6) L Monocytes (%) (Auto) 10.4 % (4.1-12.4) Eosinophils (%) (Auto) 2.9 % (0.4-6.7) Basophils (%) (Auto) 0.5 % (0.3-1.4) Nucleated RBC Relative Count (auto) 0.1 /100WBC Neutrophils # (Auto) 5.0 K/uL (2.0-7.4) Lymphocytes # (Auto) 1.2 K/uL (1.3-3.6) L Monocytes # (Auto) 0.7 K/uL (0.3-1.0) Eosinophils # (Auto) 0.2 K/uL (0.0-0.5) Basophils # (Auto) 0.0 K/uL (0.0-0.1) Nucleated RBC Absolute Count (auto) 0.01 K/uL Chemistry Test 02/21/19 02:45 Sodium Level 137 mmol/L (137-145) Potassium Level 3.4 mmol/L (3.5-5.0) Chloride Level 101 mmol/L (98-107) Carbon Dioxide Level 26 mmol/L (22-30) Blood Urea Nitrogen 34 mg/dl (9-21) Creatinine 1.80 mg/dl (0.66-1.25) Glomerular Filtration Rate Calc 36.0 Random Glucose 107 mg/dl (75-110) Calcium Level 8.5 mg/dl (8.4-10.2) Total Bilirubin 1.4 mg/dl (0.2-1.3) Aspartate Amino Transf (AST/SGOT) 47 U/L (0-35) Alanine Aminotransferase (ALT/SGPT) 44 U/L (0-56) Alkaline Phosphatase 70 U/L (0-126) Troponin I 0.073 ng/ml Total Protein 6.7 g/dl (6.3-8.2) Albumin 3.2 g/dl (3.5-5.0) Coagulation Test 02/21/19 02:45 Prothrombin Time 26.3 seconds (12.0-14.4) Prothromb Time International Ratio 2.37 Activated Partial Thromboplast Time 48 seconds (23-35) EKG/Imaging EKG Interpretation 12 lead EKG: Rhythm: Atrial fibrillation, rate 85 [place]: Left axis deviation QRS: Widened ST segments: No signs of ischemia When compared with other EKGs, morphology of the EKG looks the same. Imaging CT Head without contrast Indication: Stroke alert. Comparison: 12/05/2018 and others. Technique: Axial CT images were obtained through the brain from the skull base to the vertex without administration of IV contrast. One of the following dose optimization techniques was utilized in the performance of this exam: Automated exposure control; adjustment of the mA and/or kV according to the patient's size; or use of an iterative reconstruction technique. Specific details can be referenced in the facility's radiology CT exam operational policy. Findings: Left frontal scalp hematoma. No fracture. No evidence of mass, mass effect, or midline shift. No acute intracranial hemorrhage or acute territorial infarction. Encephalomalacia in the right frontal lobe consistent with remote infarct. Large amount of multifocal white matter hypoattenuation consistent with chronic small vessel ischemic disease. Mild to moderate cerebral atrophy. Remote infarct in the right caudate. Globes and orbits are unremarkable. Mild mucosal thickening in the maxillary sinuses. The visualized paranasal sinuses and mastoid air spaces are otherwise clear. IMPRESSION: Senescent changes and remote right frontal infarct with no apparent acute intracranial abnormality. Dr. Posada discussed this case with SREEKANTH VALDEZ on 02/21/2019 2:40 AM. Report Dictated By: Mulugeta Posada MD at 02/21/2019 2:33 AM AP CHEST 02/21/2019 3:04 AM. INDICATION: facial droop, aphasia COMPARISON: 02/09/2019 and others. FINDINGS: Unchanged mild elevation of the left hemidiaphragm. Patchy left basilar opacification similar to prior. Small left pleural effusion not excluded, unchanged. Diffuse interstitial prominence is unchanged. No pneumothorax. Heart size is unchanged. Unchanged postoperative appearance of the mediastinum/sternum consistent with CABG.. IMPRESSION: No significant change compared to 02/09/2019. Report Dictated By: Mulugeta Posada MD at 02/21/2019 3:37 AM ED Course/Re-evaluation Clinical Indication for ER IV: Hydration, IV Access ED Course Exam shows no deficits on re-evaluation. No recurrent symptoms. Imaging and labs unremarkable and no acute changes. No changes to medicines at this time. Decision to Disposition Date: Feb 21, 2019 Decision to Disposition Time: 03:38 Depart Departure Latest Vital Signs Vital Signs Date Time Temp Pulse Resp B/P (MAP) Pulse Ox O2 Delivery O2 Flow Rate FiO2 02/21/19 03:45 109/66 (80) 02/21/19 03:43 96 38 92 02/21/19 02:48 4.0 02/21/19 02:23 97.5 Room Air Impression: Primary Impression: Transient ischemic attack Condition: Improved Disposition: HOME OR SELF-CARE Referrals: MANUEL BURCH DO (PCP) Patient Instructions: Transient Ischemic Attack (ED) Additional Instructions: Labs unremarkable tonight. CT scan negative for acute bleed. Symptoms resolved. INR is at a therapeautic level. No changes to medications. SREEKANTH VALDEZ MD Feb 21, 2019 02:14
--- NOTE | 2019-02-21 02:52 | RADIOLOGY IMAGING REPORT ---
FACILITY: [facility] - [place] PATIENT NAME: Ovidio Álvarez : 1930 MR: [id number] V: [id number] EXAM DATE: ORDERING PHYSICIAN: SREEKANTH VALDEZ TECHNOLOGIST: Location: [facility] [place] Patient: Ovidio Álvarez : 1930 Visit/Account:[id number] Date of Sevice: 02/21/2019 CT Head without contrast Indication: Stroke alert. Comparison: 12/05/2018 and others. Technique: Axial CT images were obtained through the brain from the skull base to the vertex without administration of IV contrast. One of the following dose optimization techniques was utilized in th e performance of this exam: Automated exposure control; adjustment of the mA and/or kV according to t he patient's size; or use of an iterative reconstruction technique. Specific details can be referen lizbeth in the facility's radiology CT exam operational policy. Findings: Left frontal scalp hematoma. No fracture. No evidence of mass, mass effect, or midline shift. No acute intracranial hemorrhage or acute territorial infarction. Encephalomalacia in the right frontal lobe consistent with remote infarct. Large amount of multifocal white matter hypoattenuation consistent with chronic small vessel ischemic disease. Mild to moderate cerebral atrophy. Remote infarct in the right caudate. Globes and orbits are unremarkable. Mild mucosal thickening in the maxillary sinuses. The visualized paranasal sinuses and mastoid air s paces are otherwise clear. IMPRESSION: Senescent changes and remote right frontal infarct with no apparent acute intracranial ab normality. Dr. Posada discussed this case with SREEKANTH VALDEZ on 02/21/2019 2:40 AM. Report Dictated By: Mulugeta Posada MD at 02/21/2019 2:33 AM Report E-Signed By: Mulugeta Posada MD at 02/21/2019 2:45 AM WSN:[id number]
[2019-02-21 03:16] LABS: PLATELET COUNT, AUTOMATED 297 K/uL (150-450)
[2019-02-21 03:19] LABS: INR 2.37
[2019-02-21 03:45] VITALS: BP 109/66
--- NOTE | 2019-02-21 03:47 | RADIOLOGY IMAGING REPORT ---
FACILITY: [facility] - [place] PATIENT NAME: Ovidio Álvarez : 1930 MR: [id number] V: [id number] EXAM DATE: ORDERING PHYSICIAN: SREEKANTH VALDEZ TECHNOLOGIST: Location: [facility] [place] Patient: Ovidio Álvarez : 1930 Visit/Account:[id number] Date of Sevice: 02/21/2019 AP CHEST 02/21/2019 3:04 AM. INDICATION: facial droop, aphasia COMPARISON: 02/09/2019 and others. FINDINGS: Unchanged mild elevation of the left hemidiaphragm. Patchy left basilar opacification similar to keiry or. Small left pleural effusion not excluded, unchanged. Diffuse interstitial prominence is unchang ed. No pneumothorax. Heart size is unchanged. Unchanged postoperative appearance of the mediastinu m/sternum consistent with CABG.. IMPRESSION: No significant change compared to 02/09/2019. Report Dictated By: Mulugeta Posada MD at 02/21/2019 3:37 AM Report E-Signed By: Mulugeta Posada MD at 02/21/2019 3:39 AM WSN:[id number]
--- NOTE | 2019-02-21 03:52 | EKG ---
FACILITY: [facility] PATIENT NAME: JOSE M CASTANEDA : [id number] MR: [id number] V: [id number] EXAM DATE: ORDERING PHYSICIAN: SREEKANTH VALDEZ TECHNOLOGIST: Test Reason : FACIAL DROOP, APHASIA Blood Pressure : / mmHG Vent. Rate : 085 BPM Atrial Rate : 052 BPM P-R Int : 000 ms QRS Dur : 138 ms QT Int : 428 ms P-R-T Axes : 000 -62 117 degrees QTc Int : 509 ms Atrial fibrillation with premature ventricular complexes Left axis deviation Nonspecific intraventricular block Inferior infarct , age undetermined Abnormal ECG Confirmed by OSMAN GONZALEZ ([id number]) on 02/21/2019 6:15:45 AM Referred By: Confirmed By:OSMAN GONZALEZ
== END 2019-02-21 04:02 | disposition home or self-care (01) ==
LOC: ER 02:21
DX: G45.9 Transient cerebral ischemic attack, unspecified (principal); Z79.01 Long term (current) use of anticoagulants; Z79.899 Other long term (current) drug therapy; Z87.891 Personal history of nicotine dependence
CPT/HCPCS: 36415; 70450; 71045; 82040; 82247; 82310; 82374; 82435; 82565; 82947; 84075; 84132; 84155; 84295; 84450; 84460; 84484; 84520; 85025; 85610; 85730; 93005

== ENCOUNTER → 2019-02-21 | Outpatient (CLI) | payer MEDICARE, OTHER ==
[2019-01-14 09:53] VITALS: BMI 25.0
== END ==
LOC: AMB 01:51
PROVIDERS: ATTEND Nurse Practitioner
DX: R47.81 Slurred speech (principal); R53.1 Weakness
CPT/HCPCS: A0425; A0429

== ENCOUNTER → 2019-02-21 | Outpatient (CLI) | payer MEDICARE, OTHER ==
[2019-01-14 09:53] VITALS: BMI 25.0
== END ==
LOC: AMB 03:52
PROVIDERS: ATTEND Nurse Practitioner
DX: Z02.89 Encounter for other administrative examinations (principal)
CPT/HCPCS: A0425; A0428

== ENCOUNTER → 2019-02-23 | Outpatient (REF) | payer MEDICARE, OTHER ==
[2019-01-14 09:53] VITALS: BMI 25.0
== END ==
LOC: ZZSENDIN 19:07
PROVIDERS: ATTEND Family Medicine
DX: I50.9 Heart failure, unspecified (principal)
CPT/HCPCS: 82310; 82374; 82435; 82565; 82947; 83880; 84132; 84295; 84520

== ENCOUNTER → 2019-02-27 | Outpatient (REF) | payer MEDICARE, OTHER ==
[2019-01-14 09:53] VITALS: BMI 25.0
== END ==
LOC: ZZLCC 16:27
PROVIDERS: ATTEND Family Medicine
DX: I50.9 Heart failure, unspecified (principal); Z79.01 Long term (current) use of anticoagulants; Z79.899 Other long term (current) drug therapy
CPT/HCPCS: 82310; 82374; 82435; 82565; 82947; 84132; 84295; 84520

== ENCOUNTER → 2019-03-07 | Outpatient (REF) | payer MEDICARE, OTHER ==
[2019-01-14 09:53] VITALS: BMI 25.0
== END ==
LOC: ZZLCC 15:03
PROVIDERS: ATTEND Family Medicine
DX: I50.9 Heart failure, unspecified (principal); Z79.01 Long term (current) use of anticoagulants
CPT/HCPCS: 82310; 82374; 82435; 82565; 82947; 84132; 84295; 84520

== ENCOUNTER → 2019-03-10 | Outpatient (REF) | payer MEDICARE, OTHER ==
[2019-01-14 09:53] VITALS: BMI 25.0
== END ==
LOC: ZZLCC 07:56
PROVIDERS: ATTEND Family Medicine
DX: I50.9 Heart failure, unspecified (principal)
CPT/HCPCS: 82310; 82374; 82435; 82565; 82947; 84132; 84295; 84520

== ENCOUNTER → 2019-03-13 | Outpatient (REF) | payer MEDICARE, OTHER ==
[2019-01-14 09:53] VITALS: BMI 25.0
== END ==
LOC: ZZLCC 13:46
PROVIDERS: ATTEND Family Medicine
DX: R00.9 Unspecified abnormalities of heart beat (principal); R41.841 Cognitive communication deficit; E03.9 Hypothyroidism, unspecified; I48.91 Unspecified atrial fibrillation; R09.02 Hypoxemia; Z91.81 History of falling; M62.81 Muscle weakness (generalized); R26.2 Difficulty in walking, not elsewhere classified; R33.9 Retention of urine, unspecified; N13.9 Obstructive and reflux uropathy, unspecified; N18.3 Chronic kidney disease, stage 3 (moderate); I25.10 Atherosclerotic heart disease of native coronary artery without angina pectoris; I50.43 Acute on chronic combined systolic (congestive) and diastolic (congestive) heart failure; J96.21 Acute and chronic respiratory failure with hypoxia; I27.20 Pulmonary hypertension, unspecified; R82.71 Bacteriuria
CPT/HCPCS: 82310; 82374; 82435; 82565; 82947; 84132; 84295; 84520